=== PATIENT | female | born 1970 | race Caucasian/White ===

== ENCOUNTER 2022-10-30 10:53 | Outpatient (AMB) | payer OTHER, SELFPAY ==
--- NOTE | 2022-10-30 11:00 | A.OFFVIS_ITS ---
Intake Vital Signs 10/30/22 11:04 Height 5 ft 2 in Weight 142 lb 2 oz BMI 26.0 BP 126/88 Blood Pressure Location Lt brachial Position Sitting Respiration 16 Pulse 73 Pulse Source Pulse Oximeter Pulse Oximetry (%) 99 Oxygen Delivery Method Room Air Intake Visit Reasons: NPV/Botox/Trapezius Spasm & Neck Pain-con\ Intake Note: pt had spine surgery in [place]. 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 . she also has scoliosis . After the surgery her neck mobility decreased , neck pain worsened. she also reports numbness in her left neck left scalp,UE , trunk . Now she is alos noticing in her left hip and thighs. she also has chronic left hand weakness . she reports stiffness, mobility issues in her left shoulder. she was seen by DR. Horn who treated her with Botox to left trapezius( 300 units) She did not notice any improvement. she feels her head in heavy . she is here for second opinion . Her home sleep test was normal 1 year ago [facility] Medical History (Updated 10/30/22 @ 12:05 by Amy Monahan MD) Ankylosis, left shoulder Cervical dystonia Klippel-Feil deformity Left sided numbness Osteoporosis Scoliosis Syringomyelia Surgical History (Updated 10/30/22 @ 12:06 by Amy Monahan MD) History of bunionectomy History of cranial surgery Review of Systems Const Reports daytime sleepiness and Reports weight gain Physical Exam Vital Signs: Last Vital Signs Pulse 73 10/30/22 11:04 Resp 16 10/30/22 11:04 BP 126/88 10/30/22 11:04 Pulse Ox 99 10/30/22 11:04 Oxygen Delivery Method Room Air 10/30/22 11:04 BMI result Body Mass Index 26.0 Neck Other: right laterocollis and left torticollis restricted range of motion- normal forad flexion, decreased extension severe decreased left lateral tilt Right normal lateral tilt turning bilaterally restricted Tightness in left splenius, trazezius and levator no tenderness Mallampatti grade 4 Tight TMJs Neuro Other: decreased Light touch PP in left UE trunk , thigh Demetrius end gaze horizontal nystagmus General: tone normal and moves all extremities Cranial nerves: Yes Normal facial strength present Cognition (Neuro): normal cognition Gait exam (Neuro): Antalgic gait present Motor exam (neuro): 5/5 motor strength present throughout Deep tendon reflexes (DTR's): Right triceps reflex intensity grade: 2+, Left triceps reflex intensity grade: 1+, Rt Biceps (C5, C6): 2+, Left biceps reflex intensity grade: 1+, Right brachioradialis reflex intensity grade: 2+, Left brachioradialis reflex intensity grade: 1+, Left patellar reflex intensity grade: 3+ and Right ankle reflex intensity grade: 3+ Coordination: [id number]-cm-fozd test normal Assessment & Plan Assessment & Plan (1) Syringomyelia: Code(s): G95.0 - Syringomyelia and syringobulbia (2) Left sided numbness: Code(s): R20.0 - Anesthesia of skin (3) Cervical dystonia: Code(s): G24.3 - Spasmodic torticollis (4) Scoliosis: Code(s): M41.9 - Scoliosis, unspecified Plan Reviewed neurosurgery notes. Dr. Will. Syrigoperitoneal shunt was considered but Nicolette Rutledge was concerned about possible increase in leg weakness. I will refer her to PT for her left shoulder and neck tightness. will trial her on baclofen 10 mg qhs Orders: Orders PT Evaluation and Treatment Today G24.3 - Spasmodic torticollis, M24.612 - Ankylosis, left shoulder Medications: New baclofen 10 mg PO BEDTIME 30 tabs 1RF Coding Level of Care Code New Pt Level 4 (37341) Diagnoses Syringomyelia G95.0 Left sided numbness R20.0 Cervical dystonia G24.3 Scoliosis M41.9
[2022-10-30 11:04] VITALS: BP 126/88; PULSE 73; RESP 16; O2SAT 99; BMI 26.0
== END 2022-10-30 11:40 | disposition home or self-care (01) ==
PROVIDERS: Visit Provider Psychiatry & Neurology Neurology
DX: G95.0 Syringomyelia and syringobulbia (principal); R20.0 Anesthesia of skin; G24.3 Spasmodic torticollis; M41.9 Scoliosis, unspecified
CPT/HCPCS: 99204

== ENCOUNTER → 2022-10-30 10:53 | Outpatient (BNVA) | payer OTHER, SELFPAY | PROVIDERS: Visit Provider Psychiatry & Neurology Neurology ==

== ENCOUNTER 2023-04-10 09:09 | Outpatient (AMB) | payer OTHER, SELFPAY ==
--- NOTE | 2023-04-10 09:13 | A.OFFVIS_ITS ---
Intake Vital Signs 04/10/23 09:14 Height 5 ft 2 in Weight 149 lb 6 oz BMI 27.3 BP 110/70 Blood Pressure Location Rt brachial Position Sitting Respiration 16 Pulse 84 Pulse Source Pulse Oximeter Pulse Oximetry (%) 99 Oxygen Delivery Method Room Air Intake Visit Reasons: 2m follow up Trapezius Spasm/Neck Pain Intake Note: Pt presents for a 2 month follow up for cervicalgia. [employer] Required: No Allergies No Known Allergies Allergy (Verified 04/10/23 09:14) Medication List - Last Reconciled 04/10/23 by Amy Monahan MD alendronate 70 mg PO QWEEK mometasone 50 mcg/actuation 2 sprays intranasal DAILY sumatriptan succinate 25 mg PO Q2-4H PRN HPI HPI Comments History of Present Illness Details 53y/o female comes for follow up of tort icollis. she tried baclofen but did not help and had side effects.SHe denies pain and only stiffness in her neck. she also has migraines and started sumatriptan . MRI brain - mild nonspecific white matter changes and syrinx seemed smaller compared to C spine MRI in 2014. 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 . she also has scoliosis . After the ira tobi her neck mobility decreased , neck pain worsened. she also reports numbness in her left neck left scalp,UE , trunk . Now she is also noticing in her left hip and thighs. she also has chronic left hand weakness . she reports stiffness, mobility issues in her left shoulder. she was seen by DR. Horn who treated her with Botox to left trapez ius( 300 units) She did not notice any improvement. she feels her head in heavy . she is here for second opinion . Her home sleep test was normal 1 year ago [facility] Medical History Osteoporosis Klippel-Feil deformity Left sided numbness Syringomyelia Scoliosis Cervical dystonia Ankylosis, left shoulder Surgical History History of cranial surgery History of bunionectomy Physical Exam Vital Signs: Last Vital Signs Pulse 84 04/10/23 09:14 Resp 16 04/10/23 09:14 BP 110/70 04/10/23 09:14 Pulse Ox 99 04/10/23 09:14 Oxygen Delivery Method Room Air 04/10/23 09:14 BMI result Body Mass Index 27.3 Neck Other: right laterocollis and left torticollis restricted range of motion- normal forad flexion, decreased extension severe decreased left lateral tilt Right normal lateral tilt turning bilaterally restricted Tightness in left splenius, trazezius and levator no tenderness Mallampatti grade 4 Tight TMJs Neuro Other: decreased Light touch PP in left UE trunk , thigh Demetrius end gaze horizontal nystagmus General: tone normal and moves all extremities Cranial nerves: Yes Normal facial strength present Cognition (Neuro): normal cognition Gait exam (Neuro): Antalgic gait present Motor exam (neuro): 5/5 motor strength present throughout Coordination: [id number] test normal Assessment & Plan Assessment & Plan (1) Syringomyelia: Code(s): G95.0 - Syringomyelia and syringobulbia (2) Left sided numbness: Code(s): R20.0 - Anesthesia of skin (3) Cervical dystonia: Code(s): G24.3 - Spasmodic torticollis (4) Scoliosis: Code(s): M41.9 - Scoliosis, unspecified Plan Continue PT for her left shoulder and neck tightness. she declined BOTOX Magnesium 400mg qhs for migraine Medications: New magnesium oxide 400 mg PO BEDTIME 30 tabs 6RF Coding Level of Care Code Est Pt Level 4 (66849) Diagnoses Syringomyelia G95.0 Left sided numbness R20.0 Cervical dystonia G24.3 Scoliosis M41.9
[2023-04-10 09:14] VITALS: BP 110/70; PULSE 84; RESP 16; O2SAT 99; BMI 27.3
== END 2023-04-10 09:44 | disposition home or self-care (01) ==
PROVIDERS: PCP Physician Assistant; Visit Provider Psychiatry & Neurology Neurology
DX: G95.0 Syringomyelia and syringobulbia (principal); R20.0 Anesthesia of skin; G24.3 Spasmodic torticollis; M41.9 Scoliosis, unspecified
CPT/HCPCS: 99214

== ENCOUNTER → 2023-04-10 09:09 | Outpatient (BNVA) | payer OTHER, SELFPAY | PROVIDERS: PCP Physician Assistant; Visit Provider Psychiatry & Neurology Neurology | DX: M24.612 Ankylosis, left shoulder (principal); G24.3 Spasmodic torticollis ==

== ENCOUNTER 2023-10-09 08:54 | Outpatient (AMB) | payer OTHER, SELFPAY ==
--- NOTE | 2023-10-09 08:56 | MHC.OFFVIS ---
Vital Signs 10/09/23 08:58 Height 5 ft 2 in Weight 149 lb BMI 27.2 BP 112/68 Blood Pressure Location Rt brachial Position Sitting Respiration 17 Pulse 79 Pulse Source Pulse Oximeter Pulse Oximetry (%) 98 Oxygen Delivery Method Room Air Intake Visit Reasons: 6 MONTH F/U - Confirmed Intake Note: Ptt presents for a 6 month follow up for Cervical dystonia. 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 she tried baclofen but did not help and had side effects.SHe denies pain and only stiffness in her neck.she tried magneium 200mg not sure it helped.PT did not help she also reports intermittent vertigo. she also has migraines and started sumatriptan . MRI brain - mild nonspecific white matter changes and syrinx seemed smaller compared to C spine MRI in 2015. 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 . she also has scoliosis . After the surgery her neck mobility decreased , neck pain worsened. she also reports numbness in her left neck left scalp,UE , trunk . Now she is also noticing in her left hip and thighs. she also has chronic left hand weakness . she reports stiffness, mobility issues in her left shoulder. she was seen by DR. Horn who treated her with Botox to left trapezius( 300 units) She did not notice any improvement. she feels her head in heavy . Her home sleep test was normal 1 year ago [facility] Medical History Osteoporosis Klippel-Feil deformity Left sided numbness Syringomyelia Scoliosis Cervical dystonia Ankylosis, left shoulder Surgical History History of cranial surgery History of bunionectomy Physical Exam Vital Signs: Last Vital Signs Pulse 79 10/09/23 08:58 Resp 17 10/09/23 08:58 BP 112/68 10/09/23 08:58 Pulse Ox 98 10/09/23 08:58 Oxygen Delivery Method Room Air 10/09/23 08:58 BMI result Body Mass Index 27.2 Neck Other: right laterocollis and left torticollis restricted range of motion- normal forad flexion, decreased extension severe decreased left lateral tilt Right normal lateral tilt turning bilaterally restricted Tightness in left splenius, trazezius and levator no tenderness Mallampatti grade 4 Tight TMJs Neuro Other: decreased Light touch PP in left UE trunk , thigh Demetrius end gaze horizontal nystagmus General: tone normal and moves all extremities Cranial nerves: Yes Normal facial strength present Cognition (Neuro): normal cognition Gait exam (Neuro): Antalgic gait present Motor exam (neuro): 5/5 motor strength present throughout Coordination: [id number]-al-dchr test normal Assessment & Plan Assessment & Plan (1) Syringomyelia: Code(s): G95.0 - Syringomyelia and syringobulbia Category: Medical (2) Left sided numbness: Code(s): R20.0 - Anesthesia of skin Category: Medical (3) Cervical dystonia: Code(s): G24.3 - Spasmodic torticollis Category: Medical (4) Scoliosis: Code(s): M41.9 - Scoliosis, unspecified Category: Medical Plan Continue exercises for her left shoulder and neck tightness. she declined BOTOX Magnesium glycinate 200mg qhs for migraine Increase sumatriptan 50mg as needed Orders: Orders PT Evaluation and Treatment Today G24.3 - Spasmodic torticollis Medications: New sumatriptan succinate take 1 tab at onset of headache; if no relief may repeat 1 tab after at least 2 hrs; max = 4 tabs/24 hr PO 14 tabs 6RF Coding Level of Care Code Est Pt Level 4 (68098) Diagnoses Syringomyelia G95.0 Left sided numbness R20.0 Cervical dystonia G24.3 Scoliosis M41.9
[2023-10-09 08:58] VITALS: BP 112/68; PULSE 79; RESP 17; O2SAT 98; BMI 27.2
== END 2023-10-09 09:26 | disposition home or self-care (01) ==
PROVIDERS: PCP Physician Assistant; Visit Provider Psychiatry & Neurology Neurology
DX: G95.0 Syringomyelia and syringobulbia (principal); R20.0 Anesthesia of skin; G24.3 Spasmodic torticollis; M41.9 Scoliosis, unspecified
CPT/HCPCS: 99214

== ENCOUNTER → 2023-10-09 08:54 | Outpatient (BNVA) | payer OTHER, SELFPAY | PROVIDERS: PCP Physician Assistant; Visit Provider Psychiatry & Neurology Neurology ==

== ENCOUNTER 2024-01-21 14:47 | Outpatient (AMB) | payer OTHER, SELFPAY ==
[2024-01-21 14:55] VITALS: BMI 27.2
--- NOTE | 2024-01-21 14:55 | A.OFFVIS_ITS ---
Vital Signs 01/21/24 14:55 Height 5 ft 2 in Weight 149 lb BMI 27.2 Intake Visit Reasons: f/u appt for swollen hand Intake Note: Patient presents for follow up swollen hand. Allergies No Known Allergies Allergy (Verified 01/21/24 14:57) HPI Comments Details: 53 year old female is here for a follow up of Cervicogenic pain and migraines. H/o cervical fusion of c2 and c3, defect. She is R. hand dominant now unable to open bottles or doors with her hand. She went for PT / Dry needling the next morning right hand became swollen and has been like this for 2months. We had her xray the first carpometacarpal joint, with findings of mild degenerative changes, no fractures. She will follow up with her [facility] and PCP. Migraines: Her sleep is good. Mood is stable. She is now having migraines which comes on with the beginning of her ovulation cycle, lasting 2 to 3 days. She is sensitive to noise and light. Denies nausea, vomiting, auras, memory difficulties. She continues to take 50mg Sumatriptan and it is working well for the management of migraines. [facility] Medical History Osteoporosis Klippel-Feil deformity Left sided numbness Syringomyelia Scoliosis Cervical dystonia Ankylosis, left shoulder Surgical History History of cranial surgery History of bunionectomy Review of Systems Const All systems reviewed & are unremarkable except as noted in HPI and below ENT Reports Normal hearing present Neuro Reports Normal hearing present Physical Exam Vital Signs: BMI result Body Mass Index 27.2 Const General: cooperative, comfortable and no acute distress Nutritional Appearance: average body habitus Orientation/consciousness: patient oriented x3 HEENT Head: Yes normal to inspection Face and sinus: Yes normal facial exam and Yes face symmetric Mouth: tongue normal Eyes Pupils: Equal, round and reactive pupils present Neck Neck: Yes full ROM (Limited ROM to the left, disc fusion c3-c4 - defect, had surgery.) and Yes supple Resp Effort & Inspection: normal respiratory effort and able to speak in complete sentences Neuro General: patient oriented x3 and moves all extremities Cranial nerves: Yes CN's II-XII intact bilaterally, Yes Facial sensation intact/muscles of mastication intact, Yes Equal, round and reactive pupils present, Yes Normal accommodation reflex present, Yes Nystagmus not present, Yes Normal facial strength present, Yes Midline tongue present, Yes Symmetric palate elevation present, Yes Normal hearing present, Yes Ability to bilaterally rotate head present (limited ROM to the Left.) and Yes Ability to bilaterally elevate shoulders present Gait exam (Neuro): Normal gait present Motor exam (neuro): 5/5 motor strength present throughout Deep tendon reflexes (DTR's): Right triceps reflex intensity grade: 2+, Left triceps reflex intensity grade: 2+, Rt Biceps (C5, C6): 2+, Left biceps reflex intensity grade: 2+, Right brachioradialis reflex intensity grade: 2+, Left brachioradialis reflex intensity grade: 2+, Right patellar reflex intensity grade: 2+ and Left patellar reflex intensity grade: 2+ Coordination: [id number]-[id number]-ryik test normal Assessment & Plan Assessment & Plan (1) Cervicogenic migraine: Code(s): G43.809 - Other migraine, not intractable, without status migrainosus Category: Medical Plan: see details below (2) Finger pain, right: Code(s): M79.644 - Pain in right finger(s) Category: Medical Plan: May use ice for inflammation, and over the counter anti-inflammatory. Xray shows mild degenerative changes in the first carpometacarpal joint. Follow up with PCP for finger pain. Continue with Sumatriptan 50mg PO as needed at the onset of the migraine, may repeat 1 tablet 2 hours later if migraine doesn't subside with first dose. May repeat 4x max per 24 hour period. Coding Level of Care Code Est Pt Level 4 (38296) Complex EM visit Add On G2211 Diagnoses Cervicogenic migraine G43.809 Finger pain, right M79.644
== END 2024-01-21 15:41 | disposition home or self-care (01) ==
PROVIDERS: PCP Physician Assistant; Visit Provider Physician Assistant Medical
DX: G43.809 Other migraine, not intractable, without status migrainosus (principal); M79.644 Pain in right finger(s)
CPT/HCPCS: 99214

== ENCOUNTER → 2024-01-21 14:47 | Outpatient (BNVA) | payer OTHER, SELFPAY | PROVIDERS: PCP Physician Assistant; Visit Provider Psychiatry & Neurology Neurology ==

== ENCOUNTER 2024-05-12 08:11 | Outpatient (AMB) | payer OTHER, SELFPAY ==
[2024-05-12 08:12] VITALS: BP 116/74; PULSE 85; O2SAT 98; BMI 27.3
--- NOTE | 2024-05-12 08:12 | A.OFFVIS_ITS ---
Vital Signs 05/12/24 08:12 Height 5 ft 2 in Weight 149 lb 2 oz BMI 27.3 BP 116/74 Blood Pressure Location Rt brachial Pulse 85 Pulse Source Pulse Oximeter Pulse Oximetry (%) 98 Oxygen Delivery Method Room Air Intake Visit Reasons: 6 MONTH F/U Intake Note: Pt presents to the office today for a 6 month follow up for Cervicogenic pain and migraines. Allergies No Known Allergies Allergy (Verified 05/12/24 08:14) Medication List - Last Reconciled 05/12/24 by Amy Monahan MD denosumab (Prolia) 60 mg subcut [id number] magnesium oxide 400 mg PO BEDTIME mometasone 50 mcg/actuation 2 sprays intranasal DAILY sumatriptan succinate take 1 tab at onset of headache; if no relief may repeat 1 tab after at least 2 hrs; max = 4 tabs/24 hr PO HPI Comments Details: 54 year old female is here for a follow up of Cervicogenic pain and migraines. Her migraines have increased to 2/month she also missed her periods this month and thinks she might be going through [employer].Sumatriptan helps in 30 minutes. history from last visit-H/o cervical fusion of c2 and c3, defect. She is R. hand dominant now unable to open bottles or doors with her hand. She went for PT / Dry needling the next morning right hand became swollen and has been like this for 2months. We had her xray the first carpometacarpal joint, with findings of mild degenerative changes, no fractures. She will follow up with her [employer] and PCP. Migraines: Her sleep is good. Mood is stable. She is now having migraines which comes on with the beginning of her ovulation cycle, lasting 2 to 3 days. She is sensitive to noise and light. Denies nausea, vomiting, auras, memory difficulties. She continues to take 50mg Sumatriptan and it is working well for the management of migraines. [facility] Medical History Osteoporosis Klippel-Feil deformity Left sided numbness Syringomyelia Scoliosis Cervical dystonia Ankylosis, left shoulder Surgical History History of cranial surgery History of bunionectomy Family History Father Hyperlipidemia Social History Alcohol intake: never Patient Tobacco Use Status: Never used Tobacco Review of Systems ENT Reports Normal hearing present Neuro Reports Normal hearing present Physical Exam Vital Signs: Last Vital Signs Pulse 85 05/12/24 08:12 BP 116/74 05/12/24 08:12 Pulse Ox 98 05/12/24 08:12 Oxygen Delivery Method Room Air 05/12/24 08:12 BMI result Body Mass Index 27.3 Const General: cooperative, comfortable and no acute distress Nutritional Appearance: average body habitus Orientation/consciousness: patient oriented x3 HEENT Head: Yes normal to inspection Face and sinus: Yes normal facial exam and Yes face symmetric Mouth: tongue normal Eyes Pupils: Equal, round and reactive pupils present Neck Neck: Yes full ROM (Limited ROM to the left, disc fusion c3-c4 - defect, had surgery.) and Yes supple Resp Effort & Inspection: normal respiratory effort and able to speak in complete sentences Neuro General: patient oriented x3 and moves all extremities Cranial nerves: Yes CN's II-XII intact bilaterally, Yes Facial sensation intact/muscles of mastication intact, Yes Equal, round and reactive pupils present, Yes Normal accommodation reflex present, Yes Nystagmus not present, Yes Normal facial strength present, Yes Midline tongue present, Yes Symmetric palate elevation present, Yes Normal hearing present, Yes Ability to bilaterally rotate head present (limited ROM to the Left.) and Yes Ability to bilaterally elevate shoulders present Gait exam (Neuro): Normal gait present Motor exam (neuro): 5/5 motor strength present throughout Coordination: [id number] test normal Assessment & Plan Assessment & Plan (1) Cervicogenic migraine: Code(s): G43.809 - Other migraine, not intractable, without status migrainosus Category: Medical Plan: see details below (2) Finger pain, right: Code(s): M79.644 - Pain in right finger(s) Category: Medical Plan: May use ice for inflammation, and over the counter anti-inflammatory. Xray shows mild degenerative changes in the first carpometacarpal joint.- F/u with - Rheumatology Continue with Sumatriptan 50mg PO as needed at the onset of the migraine, may repeat 1 tablet 2 hours later if migraine doesn't subside with first dose. May repeat 4x max per 24 hour period. MRI C spine to evaluate syringo myelia Orders: Orders MR cervical spine wo con Today G95.0 - Syringomyelia and syringobulbia, Q76.1 - Klippel-Feil syndrome Coding Level of Care Code Est Pt Level 4 (03007) Diagnoses Cervicogenic migraine G43.809 Finger pain, right M79.644
--- OUTSIDE RECORDS SUMMARY | 2024-05-12 08:26 | XMS_ITS ---
Author Organization [facility] Address [address] [place] [address] Care Team Providers Care Laboratory Associate Name Role Phone LISANDRO TRIPATHI MD Primary Care Provider Kyra MaldonadoMargaretli Unavailable [phone] Allergies No Known Allergies Results Component Value Reference Range Notes Urinalysis Reviewed date:06/23/2023 11:43:46 AM Interpretation: Performing Lab: Notes/Report: PH 7.0 PROTEIN TR GLUCOSE NEG BLOOD NEG [id number] IGP No Culture 30 Plus Reviewed date:06/25/2023 05:14:44 PM Interpretation: Performing Lab:[facility] [place], [address], [address], [place], Phone - [phone], Director - [facility] Notes/Report: Clinical Information:VAGINAL/CERVICAL:LMP> [id number] LMP / Prev Treat...UCM=[id number] Dates / Results....04/27/20 NEGHPV No. of containers..01 ThinPrep Vial DIAGNOSIS: NEGATIVE FOR IN TRAEPITHELIAL LESION OR MALIGNANCY. Specimen adequacy: Satisfact ory for evaluation. No endocervical component is identified. Clinician provided ICD10: Z0 1.419 Performed by: Jorge zhou, Trolley Cleaner ([facility]) . . Note: The Pap smear is a screening test designed to aid in the detection of premalignant and malignant conditions of the uterine cervix. It is not a diagnostic procedure and should not be used as the sole means of detecting cervical cancer. Both false-positive and false-negative reports do occur. . Test Methodology: This liquid based ThinPrep(R) pap test was screened with the use of an image guided system. HPV Aptima Negative Negative This nucleic acid amplification test detects fourteen high-risk HPV types (16,18,31,33,35,39,45,51,52,56,58 ,59,66,68) without differentiation. HPV Genotype Reflex Criteria not met, HPV Genotype not performed. PDF Report Reviewed date:06/25/2023 05:14:29 PM Interpretation: Performing Lab:[facility] [place], [address], [address], [place], Phone - [phone], Director - [facility] Notes/Report: Clinical Information:VAGINAL/CERVICAL:LMP> [id number] LMP / Prev Treat...RYD=[id number] Dates / Results....04/27/20 NEGHPV No. of containers..01 ThinPrep Vial REASON FOR VISIT Annual MEDICAL MASSAGE THERAPIST Physical, Annual MEDICAL MASSAGE THERAPIST Physical 50-59* Medications Medication SIG (Take, Route, Frequency, Duration) Notes Start Date End Date Status Alendronate Sodium 70 MG 1 tablet 30 min utes before the first food, beverage or medicine of the day with plain water Orally for 30 day(s) Active Social History Tobacco Use: Social History Observation Description Date Details (start date - stop date) Never Smoker NA - NA Tobacco Use/Smoking Question Answer Notes Are you a nonsmoker Alcohol Screen (Audit-C) Question Answer Notes Did you have a drink containing alcohol in the p ast year? No Points 0 Interpretation Negative Sexual History Question Answer Notes Had sex in the past 12 months (vaginal, oral, or anal)? Yes with Men only Prevention strategies discussed: Condoms Vital Signs Temperature 97.8 degrees Fahrenheit 06/23/19 24 Blood pressure systolic 110 mm Hg 06/23/19 24 Blood pressure diastolic 78 mm Hg 024 Height 62.5 in 06/23/2023 Weight 144 lbs 06/23/2023 BMI 25.92 kg/m2 06/23/2023 110/78 Encounters Encounter Location Date Provider Diagnosis Total [address] [place] [address] 06/23/2023 Christina Maldonado Encounter for gynecological examination (general) (routine) without abnormal findings Z01.419 ; Encounter for screening mammogram for malignant neoplasm of breast Z12.31 ; Age-related osteoporosis without current pathological fracture M81.0 and Dense breasts, unspecified R92.30 Assessments Encounter Date Diagnosis (ICD Code) Assessment Notes Treatment Notes Treatment Clinical Notes Section Notes 06/23/2023 Encounter for gynecological examination (general) (routine) without abnormal findings (ICD-10 - Z01.419) PAP TEST WITH HPV TYPING WAS OBTAINED. 06/23/2023 Encounter for screening mammogram for malignant neoplasm of breast (ICD-10 - Z12.31) REGULAR MAMMOGRAMS AND SBE'S WERE RECOMMENDED. 06/23/2023 Age-related osteoporosis without current pathological fracture (ICD-10 - M81.0) DISCUSSED HER LAST BMD AND OSTEOPOROSIS AND ITS IMPACT ON HER HEALTH. CONTINUE SEEING HER MUSIC THERAPY SPECIALIST AND CONTINUE FOSAMAX. ADEQUATE CALCIUM AND VIT D. WEIGHT BEARING EXERCISES. OSTEO PRECAUTIONS. REPEAT BMD IN 2023. 06/23/2023 Dense breasts, unspecified (ICD-10 - R92.30) DISCUSSED DENSE BREASTS ON MAMMOGRAM AND ITS IMPLICATIONS. 3D MAMMOGRAMS WERE RECOMMENDED. Plan Of Treatment Treatment Notes Assessment Notes Encounter for gynecological examination (general) (routine) without abnormal findings PAP TEST WITH HPV TYPING WAS OBTAINED. Encounter for screening mamm ogram for malignant neoplasm of breast REGULAR MAMMOGRAMS AND SBE'S WERE RECOMMENDED. Age-related osteoporosis wit hout current pathological fracture DISCUSSED HER LAST BMD AND OSTEOPOROSIS AND ITS IMPACT ON HER HEALTH. CONTINUE SEEING HER MUSIC THERAPY SPECIALIST AND CONTINUE FOSAMAX. ADEQUATE CALCIUM AND VIT D. WEIGHT BEARING EXERCISES. OSTEO PRECAUTIONS. REPEAT BMD IN 2023. Dense breasts, unspecified DISCUSSED DENSE BREASTS ON MAMMOGRAM AND ITS IMPLICATIONS. 3D MAMMOGRAMS WERE RECOMMENDED. Pending Test Test Name Order Date BONE DENSITY 06/23/2023 MM Digital Mammo Screening 06/23/2023 Next Appt Details Follow Up: 1 Year, Reason: Provider Name:Christina pitts, 06/23/2024 09:20:00 AM, [address], [address], [place], [address], Progress Notes * LIV SINGLETARYOB:1970 (53 yo F)Acc No.[id number]:06/23/2023 PROGRESS NOTES Patient:?JERED SINGLETARY Appointment Provider:?Christina pitts M.D. :1970???Age:53 Y???Sex:Female D ate:06/23/2023 Address:[address], , [place] Pcp:LISANDRO TRIPATHI MD Subjective: * Chief Complaints: * ???Annual MEDICAL MASSAGE THERAPIST PhysicalAnnual MEDICAL MASSAGE THERAPIST Physical 50-59* * HPI: ???New/Follow-up Patient Consult:? PAT CONTINUES TO HAVE REGULAR MENSES.? SHE DENIES ANY MENOPAUSAL SYMPTOMS.? SHE DENIES DYSPAREUNIA. SHE IS KNOWN TO BE OSTEOPOROTIC AND SEES A MUSIC THERAPY SPECIALIST, DR JACOME, WHO? PLACED HER ON FOSAMAX IN 2021.? SHE IS TOLERATING THIS WELL.? HER LAST BMD SHOWED THE LOWEST T-SCORE TO BE -2.6 AT THE [facility].? SHE HAS NO HX OF FRACTURES. HER LAST MAMMOGRAM DONE IN NOV 2022 SHOWED DENSE BREASTS ANDW NORMAL.? HER LIFETIME BREAST CA RISK IS 10.2%. HER LAST PAP TEST IN 2020 WAS NEGATIVE AND HPV NEGATIVE. SHE HAD A COLONOSCOPY DONE IN 2021. PFIZER X 3. ???Annual:? Patient presents for annual exam, ages 50-59. ?General Health Maintenance:?Current breast complaints:?no breast pain, mass, discharge, or skin changes ?Urinary problems:?patient reports no urinary health problems or bowel health problems ?Calcium intake:?takes adequate calcium via diet and supplementation ?Significant MEDICAL MASSAGE THERAPIST problems:?no significant blue leather setter symptoms or problems * ROS:?general:?no?chest pain.?no?palpitations.?no?headache.?no?cough.?no?shortness of breath.?no?fever.?no?unexplained weight loss.?no?nausea/vomiting.?no?change in bowel movements.?no blood in stool.?no?genitourinary complaints.?no?skin complaints.? * Medical History:? * [employer] History:?/ Para?2/2.?Sexual activity?currently sexually active.?Last Pap Smear:?04/27/20 NIL, NEG HPV, 06/14/17 NIL, NEG HRHPV, 04/21/2015, neg, NEG HRHPV.?Mammogram:?11/20/22 50-75% density, 11/16/21 50-75% density, 11/15/20 50-75% density, 10/07/19 50-75% density, 08/21/17 50-75% density, 08/20/16 50-75% density, 06/29/2015 50-75% density.?LMP and menses?06/05/23.? Control:?condoms.?Colonoscopy?08/2021 Q 10 Years.? * OB History:?Total pregnancies?2.?Total living children?2.?NVD?2.? * Surgical History:?Bunionecto my Spinal Fusion Cervical Polypectomy 2015Colonoscopy 08/2021 * Hospitalization/Major Diagno stic Procedure:?2 Vaginal Deliveries See Surgical Hx Fall, Cracked Rib 03/05/20 * Family History:?Mother: bertram marcano, well.?Father: , Tragic Accident.? * Social History:?Tobacco Use:?Tobacco Use/Smoking?Are you a?nonsmoker ???Sexual History:?Sexual History?Had sex in the past 12 months (vaginal, oral, or anal)??Yes ?with?Men only ?Prevention strategies discussed:?Condoms ?Details of Sexual History?Are you sexually active??Yes ???Drugs/Alcohol:?Drugs?Have you used drugs other than those for medical reasons in the past 12 months??No ?Alcohol Screen (Audit-C)?Did you have a drink containing alcohol in the past year??No ?Points?0 ?Interpretation?Negative ???Miscellaneous:?Children: yes, 2. ?Domestic violence: no. ?Exercise: yes, walking. ?Home smoke detector use: yes. ?Living with: spouse. ?Marital status: . ?Natural support system: yes. 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 ?Others at home: yes. ?Sexual abuse: no. ?Sexually active: yes, monogamous relationship. ?Verbal abuse: no. * Medications:?TakingAlendrona te Sodium 70 MG Tablet 1 tablet 30 minutes before the first food, beverage or medicine of the day with plain water Orally Taking Alendronate Sodium 70 MG Tablet 1 tablet 30 minutes before the first food, beverage or medicine of the day with plain water Orally DiscontinuedWomens One Daily - Tablet as directed Orally Clotrimazole-Betamethasone 1-0.05 % Cream 1 application to affected area Externally Twice a day Medication List reviewed and reconciled with the patientDiscontinued Womens One Daily - Tablet as directed Orally Discontinued Clotrimazole-Betamethasone 1-0.05 % Cream 1 application to affected area Externally Twice a day Medication List reviewed and reconciled with the patient * Allergies:?N.K.D.A.no[Allerg ies Verified] Objective: * Vitals:?Ht: 62.5 in, Wt:144l bs, BMI:25.92Index, BP:110/78mm Hg, Temp:97.8F. 110/78. * Examination: ???General Exam: ?CONSTITUTIONAL:?General Appearance:?alert, in no acute distress, normal, well nourished ?NECK/THYROID:?Inspection/Palpation:?normal ?Thyroid:?normal size and shape ?RESPIRATORY:?Auscultation: clear to auscultation bilaterally, Respiratory Effort: normal.?CARDIOVASCULAR:?Auscultation: regular rate and rhythm.?BREAST, Right:?Inspection/Palpation:?no discharge, no masses present, no nipple retraction, no skin changes, no skin dimpling, no tenderness, no lymphadenopathy, no axillary mass, no axillary tenderness ?BREAST, Left:?Inspection/Palpation:?no discharge, no masses present, no nipple retraction, no skin changes, no skin dimpling, no tenderness, no lymphadenopathy, no axillary mass, no axillary tenderness ?GASTROINTESTINAL:?Abdomen:?no masses, nontender, nondistended ?Liver and Spleen:?normal ?Hernias:?no hernias present, no inguinal adenopathy ?MUSCULOSKELETAL:?Inspection/Palpation:?no clubbing, cyanosis, or edema ?SKIN:?Skin:?normal ?NEURO/PSYCH:?Orientation:?time , place, person ?Mood/Affect:?normal?Genitourinary: ?EXTERNAL GENITALIA:?External Genitalia:?normal, no lesions ?VAGINA:?Vagina:?normal appearance, no abnormal discharge, no lesions ?BLADDER:?Bladder:?no mass, nontender ?URETHRA:?Urethra:?no erythema or lesions present ?CERVIX:?Cervix:?no lesions, nontender ?UTERUS:?Uterus:?nontender, normal contour, normal mobility, normal size ?ADNEXA:?Adnexa:?no masses, no tenderness ?ANUS AND PERINEUM:?Anus/Perineum:?visually normal??? Assessment: * Assessment: 1.?Encounter for gynecologic al examination (general) (routine) without abnormal findings - Z01.419?2.?Encounter for screening mammogram for malignant neoplasm of breast - Z12.31?3.?Age-related osteoporosis without current pathological fracture - M81.0?4.?Dense breasts, unspecified - R92.30? Plan: * Treatment: ?LAB: Urinalysis (Collection Date & Time - 06/23/2023)* ? Value Reference Range ?PH 7.0 * ?PROTEIN TR * ?GLUCOSE NEG * ?BLOOD NEG Notes: PAP TEST WITH HPV TYPING WAS OBTAINED.??2.?Encounter for screening mammogram for malignant neoplasm of breast?Imaging: MM Digital Mammo Screening Notes: REGULAR MAMMOGRAMS AND SBE'S WERE RECOMMENDED.??3.?Age-related osteoporosis without current pathological fracture?Imaging: BONE DENSITY Notes: DISCUSSED HER LAST BMD AND OSTEOPOROSIS AND ITS IMPACT ON HER HEALTH. CONTINUE SEEING HER MUSIC THERAPY SPECIALIST AND CONTINUE FOSAMAX. ADEQUATE CALCIUM AND VIT D. WEIGHT BEARING EXERCISES. OSTEO PRECAUTIONS. REPEAT BMD IN 2023.??4.?Dense breasts, unspecified? Notes: DISCUSSED DENSE BREASTS ON MAMMOGRAM AND ITS IMPLICATIONS. 3D MAMMOGRAMS WERE RECOMMENDED.?? * Procedure Codes:? * Preventive Medicine:? ??YOUR PREVENTIVE WELLNESS PLAN:?Osteoporosis prevention?Calcium, D, strength training.?Breast Cancer Screening (Mammogram):?annually.?Cervical Cancer Screening (Pap Smear):?q 3 years with HPV screen.?Colorectal Cancer Screening:?q 10 years.? * Follow Up:?1 Year * Images: Billing Information: * Visit Code:? 32233 Preventive Care New Pt. Age 40-64. 56265 Preventive Care Est Pt. Age 40-64. * Procedure Codes:? * Sign off status: Completed true * Appointment Provider:?Christina Maldonado M.D. Date:?06/23/2023 Generated for Faby mazariegos/Lakisha/Melanieitting on:?05/12/2024 08:26 AM EST History and Physical Notes * HPI (History of Present Illness) Category Sub-Category Detail Notes Category Not es New/Follow-up Patient Consult PAT CONTINUES TO HAVE REGULAR MENSES. SHE DENIES ANY MENOPAUSAL SYMPTOMS. SHE DENIES DYSPAREUNIA. SHE IS KNOWN TO BE OSTEOPOROTIC AND SEES A MUSIC THERAPY SPECIALIST, DR JACOME, WHO PLACED HER ON FOSAMAX IN 2021. SHE IS TOLERATING THIS WELL. HER LAST BMD SHOWED THE LOWEST T-SCORE TO BE -2.6 AT THE [facility]. SHE HAS NO HX OF FRACTURES. HER LAST MAMMOGRAM DONE IN NOV 2022 SHOWED DENSE BREASTS ANDW NORMAL. HER LIFETIME BREAST CA RISK IS 10.2%. HER LAST PAP TEST IN 2020 WAS NEGATIVE AND HPV NEGATIVE. SHE HAD A COLONOSCOPY DONE IN 2021. PFIZER X 3. Annual General Health Maintenance: Current breast complaints:: no breast pain, mass, discharge, or skin changes Urinary problems:: patient r eports no urinary health problems or bowel health problems Calcium intake:: takes adequ ate calcium via diet and supplementation Significant MEDICAL MASSAGE THERAPIST problems:: n o significant blue leather setter symptoms or problems Examination Category Sub-Category Detail Notes Category Not es General Exam CONSTITUTIONAL: General Appearan ce:: alert, in no acute distress, normal, well nourished NECK/THYROID: Thyroid:: normal size and shape Inspection/Palpation:: normal RESPIRATORY: Auscultation: clear to auscultation bilaterally, Respiratory Effort: normal CARDIOVASCULAR: Auscultation: regula r rate and rhythm GASTROINTESTINAL: Hernias:: no hernias present, no inguinal adenopathy Liver and Spleen:: normal Abdomen:: no masses, nontender, nondiste nded MUSCULOSKELETAL: Inspection/Palpation:: no clubb ing, cyanosis, or edema SKIN: Skin:: normal NEURO/PSYCH: Mood/Affect:: normal Orientation:: time , place, person BREAST, Right: Inspection/Palpation :: no discharge, no masses present, no nipple retraction, no skin changes, no skin dimpling, no tenderness, no lymphadenopathy, no axillary mass, no axillary tenderness BREAST, Left: Inspection/Palpation :: no discharge, no masses present, no nipple retraction, no skin changes, no skin dimpling, no tenderness, no lymphadenopathy, no axillary mass, no axillary tenderness Genitourinary EXTERNAL GENITALIA: External Genitalia:: nor mal, no lesions VAGINA: Vagina:: normal appearance, no a bnormal discharge, no lesions BLADDER: Bladder:: no mass, nontender URETHRA: Urethra:: no erythema or lesions present CERVIX: Cervix:: no lesions, nontender UTERUS: Uterus:: nontender, normal conto ur, normal mobility, normal size ADNEXA: Adnexa:: no masses, no tendernes s ANUS AND PERINEUM: Anus/Perineum:: visually norm al
--- OUTSIDE RECORDS SUMMARY | 2024-05-12 08:26 | XMS_ITS | Patient Health Record ---
Author [facility] [place] Address [address] [place] [address] Care Team Providers Care Conveyor Tender [employer] Name Role Phone Ad Stacy MD, Sasha Iyer Primary Care Prov ider Unavailable Yadira Pinedo Unavailable [phone] Allergies No Known Allergies Reason For Referral No Information Medications Medication SIG (Take, Route, Fr equency, Duration) Notes Start Date End Date Status Medrol 4 MG as directed Orally 09/25/2020 Not-Taking Immunizations Vaccine Route Administration Date Status Comme nts COVID-19 Pfizer BioNTech Vaccine Unknown 05/19/2020 Administered 1st Shot 021 Social History Tobacco Use: Social History Observation Description Date Details (start date - stop date) Never Smoker NA - NA Tobacco Use/Smoking Question Answer Notes Are you a: nonsmoker Additional Findings: Tobacco Non-User Aggressive non-smoker Alcohol Screen Question Answer Notes Did you have a drink containing alcohol in the p ast year? No Points 0 Interpretation Negative Tobacco use other than smoking: Question Answer Notes Are you an other tobacco user? 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 Plan Of Treatment Pending Test Test Name Order Date X ray : Foot, right 3V 09/25/2020 Insurance Providers Payer Name Payer Address Payer Phone Subscriber Number Group Number Insured Name Patient Relationship to Insured Coverage Start Date Coverage End Date [facility] [address] [facility] [place] [phone] [id number] [employer] Jung Jr Spouse - patient is the spouse of the insured Medical (General) History Medical History History ICD Code Broken bones Headaches Numbness Joint implants/screws Surgical History Surgery Date(Month/Year) spine surgery 2004 bunionectomy 2011
--- OUTSIDE RECORDS SUMMARY | 2024-05-12 08:26 | XMS_ITS ---
Author Organization [facility] Address [address] [place] [address] Care Team Providers Care Contact Center Agent Name Role Phone BHUMI HURD, LISANDRO Primary Care Provider Christina Saeed Unavailable [phone] REASON FOR VISIT Annual JEWELRY MECHANIC Physical Encounters Encounter Location Date Provider Diagnosis [facility] [address] [place] [address] [address] [place] [address] 04/04/2023 Christina Maldonado Plan Of Treatment Next Appt Details Provider Name:Christina pitts, 06/23/2024 09:20:00 AM, [address], [address], [place], [address], Progress Notes * LIV SINGLETARYOB:1970 (54 yo F)Acc No.[id number]:04/04/2023 PROGRESS NOTES Patient:?JERED SINGLETARY Appointment Provider:?Christina pitts M.D. :1970???Age:53 Y???Sex:Female D ate:04/04/2023 Address:[address] [place] [address], [id number] Pcp:LISANDRO TRIPATHI MD Subjective: * Chief Complaints: * ???1. Annual JEWELRY MECHANIC Physical. * Medical History:? Objective: * Vitals:? Assessment: Plan: * Treatment: * Images: Billing Information: * Visit Code:? * Procedure Codes:? * Electronic signature of Kitty Maldonado MD on 05/12/2024 at 08:26 AM EST Sign off status: Pending * Appointment Provider:?Christina Maldonado M.D. Date:?04/04/2023 Generated for Faby mazariegos/Lakisha/Mary Ann on:?05/12/2024 08:26 AM EST
--- OUTSIDE RECORDS SUMMARY | 2024-05-12 08:27 | XMS_ITS | Data Portability ---
Author Organization [facility], Main Office Address [address] [place] [id number] Care Team Providers Care Glove Cutter Name Role Phone CARLEE FLORES Neurosurgeon VANESSA HOOVER Vascular Surgeon PARK PEÑALOZA [employer] Footballer LISANDRO TRIPATHI Primary Care Provider JONI KABA Volunteer Services Coordinator [phone] DYLAN PIRES Neurologist [phone] NELI MCQUEEN Referring Provider [phone] Assessment No assessment recorded. Plan of Treatment Reminders Order Date Submit Date Provider Last Modified By Organization Details Last Modified Time Details Appointments PE EST 2024 09:00A Erik TRIPATHI MD Not available Not available Not available Lab lipid panel, serum 2023 024 GONZALEZ [facility], [address], [place], [address], 05/21/2023 06:08:10 vitamin B12, serum 2023 024 GONZALEZ [facility], [address], [place], [address], 05/21/2023 06:08:11 BMP, serum or plasma 2023 024 GONZALEZ [facility], [address], [place], [address], 05/21/2023 06:08:10 CBC w/ auto diff 2023 024 GONZALEZ [facility], [address], [place], [address], 05/21/2023 06:08:09 TSH, ultra-sen sitive, serum 2023 024 GONZALEZ [facility], [address], [place], [address], 05/21/2023 06:08:11 C-reactiv e protein, quantitat anabel, serum or plasma 2022 023 GONZALEZ [facility], [address], [address], [place], [address], 06/24/2022 19:02:39 ESR (erythroc yte sedimenta tion rate), blood 2022 023 GONZALEZ [facility], [address], [address], [place], [address], 06/24/2022 17:33:23 rf (rheumato id factor), serum 2022 023 GONZALEZ [facility], [address], [address], [place], [address], 06/24/2022 19:02:40 Referral None recorded. Procedures None recorded. Surgeries None recorded. Imaging MRI, brain, w/o contrast - pt having different headache than usual and worse at night 2022 023 [facility] ([facility]), [address], [place], [address], 02/14/2023 11:07:19 XR, hand, 2 view - right hand 2022 023 GONZALEZ Not available 06/25/2022 09:15:53 Medication Orders meclizine 12.5 mg tablet 2022 023 [email or web address] [id number], [address], [place], [id number], 02/10/2023 10:10:30 Fioricet 50 mg-300 mg-40 mg capsule 2022 023 [email or web address] [id number], [address] [place] [address], [id number], 02/10/2023 10:10:22 Patient TargetsNo targets recorded. Patient Instructions Encounter Date Encounter Id Patient Instructions Last Modified By Organization Details Last Modified Time 11/19/2022 [id number] eustachian tube problems: care instructions [email or web address] Not available 11/19/2022 15:49:46 benign paroxysma l positional vertigo (bppv): care instructions [email or web address] Not available 11/19/2022 15:49:46 To call or retur n for worsening or concerns [email or web address] Not available 11/19/2022 15:49:53 02/10/2023 [id number] medical record request* Not available 02/17/2023 13:02:51 05/19/2023 [id number] osteoporosis: care instructions Not available 05/19/2023 09:59:45 medical record request* Not available 05/28/2023 13:20:00 11/13/2023 [id number] medical record request* Not available 11/20/2023 10:23:01 Reason for Referral None Reported. Results Created Date Observation Date Name Description Value Unit Range Abnormal Flag Note LastModifiedBy Organization Detail LastModifiedTime 06/25/1906/24/2022 SEDIM ENTAT ION RATE, AUTOM ATED sedimentatio n rate,automat ed 3 mm/HR (0-20) RESUL TS CHECK ED Not Available [facility] (Centralized Electronic Ordering - All Locations) Patient Can Go To The Location Of Their Choice, [id number] 06/24/2022 20:37:20 06/25/1906/24/2022 C-YOKO CTIVE PROTE IN C-reactive protein <0.3 mg/dL (0-0.5 ) Not Available [facility] (Centralized Electronic Ordering - All Locations) Patient Can Go To The Location Of Their Choice, [id number] 06/24/2022 19:02:39 06/25/19 23 06/24/2022 RHEUM ATOID FACTO R rheumatoid factor <10.0 IU/mL (<14) Not Available [facility] (Centralized Electronic Ordering - All Locations) Patient Can Go To The Location Of Their Choice, [id number] 06/24/2022 19:02:40 05/20/19 24 05/21/2023 CBC WITH DIFFE RENTI AL/PL ATELE T WBC 6.2 x10e3 /uL 3.4-10 .8 Not Available [facility] ([facility]) [address] [facility], [place], [address], 05/21/2023 06:08:09 05/20/1905/21/2023 CBC WITH DIFFE RENTI AL/PL ATELE T RBC 4.68 x10e6 /uL 3.77-5 .28 Not Available [facility] ([facility]) [address] [place], [address], 05/21/2023 06:08:09 05/20/19 24 05/21/2023 CBC WITH DIFFE RENTI AL/PL ATELE T hemoglobin 14.0 g/dL 11.1-1 5.9 Not Available [facility] ([facility]) [address] [place], [address], 05/21/2023 06:08:09 05/20/19 24 05/21/2023 CBC WITH DIFFE RENTI AL/PL ATELE T hematocrit 42.5 % 34.0-4 6.6 Not Available [facility] ([facility]) [address] [place], [address], 05/21/2023 06:08:09 05/20/1905/21/2023 CBC WITH DIFFE RENTI AL/PL ATELE T MCV 91 fL 79-97 Not Available [facility] ([facility]) [address] [place], [address], 05/21/2023 06:08:09 05/20/19 24 05/21/2023 CBC WITH DIFFE RENTI AL/PL ATELE T MCH 29.9 pg 26.6-3 3.0 Not Available [facility] ([facility]) [address] [facility], [place], [address], 05/21/2023 06:08:09 05/20/19 24 05/21/2023 CBC WITH DIFFE RENTI AL/PL ATELE T MCHC 32.9 g/dL 31.5-3 5.7 Not Available [facility] ([facility]) [address] [facility], [place], [address], 05/21/2023 06:08:09 05/20/19 24 05/21/2023 CBC WITH DIFFE RENTI AL/PL ATELE T RDW 12.1 % 11.7-1 5.4 Not Available [facility] ([facility]) [address] [place], [address], 05/21/2023 06:08:09 05/20/19 24 05/21/2023 CBC WITH DIFFE RENTI AL/PL ATELE T platelets 264 x10e3 /uL 150-45 0 Not Available [facility] ([facility]) [address] [facility], [place], [address], 05/21/2023 06:08:09 05/20/19 24 05/21/2023 CBC WITH DIFFE RENTI AL/PL ATELE T neutrophils 56 % not estab. Not Available [facility] ([facility]) [address] [place], [address], 05/21/2023 06:08:09 05/20/19 24 05/21/2023 CBC WITH DIFFE RENTI AL/PL ATELE T lymphs 32 % not estab. Not Available [facility] ([facility]) [address] [place], [address], 05/21/2023 06:08:09 05/20/19 24 05/21/2023 CBC WITH DIFFE RENTI AL/PL ATELE T monocytes 9 % not estab. Not Available [facility] ([facility]) [address] [facility], [place], [address], 05/21/2023 06:08:09 05/20/19 24 05/21/2023 CBC WITH DIFFE RENTI AL/PL ATELE T eos 2 % not estab. Not Available [facility] ([facility]) [address] [facility], [place], [address], 05/21/2023 06:08:09 05/20/19 24 05/21/2023 CBC WITH DIFFE RENTI AL/PL ATELE T basos 1 % not estab. Not Available [facility] ([facility]) [address] [facility], [place], [address], 05/21/2023 06:08:09 05/20/19 24 05/21/2023 CBC WITH DIFFE RENTI AL/PL ATELE T immature cells LICENSED NURSING ASSISTANT Not Available [facility] ([facility]) [address] [facility], [place], [address], 05/21/2023 06:08:09 05/20/19 24 05/21/2023 CBC WITH DIFFE RENTI AL/PL ATELE T neutrophils (absolute) 3.4 x10e3 /uL 1.4-7. 0 Not Available [facility] ([facility]) [address] [facility], [place], [address], 05/21/2023 06:08:09 05/20/19 24 05/21/2023 CBC WITH DIFFE RENTI AL/PL ATELE T lymphs (absolute) 2.0 x10e3 /uL 0.7-3. 1 Not Available [facility] ([facility]) [address] [facility], [place], [address], 05/21/2023 06:08:09 05/20/19 24 05/21/2023 CBC WITH DIFFE RENTI AL/PL ATELE T monocytes(ab solute) 0.5 x10e3 /uL 0.1-0. 9 Not Available [facility] ([facility]) [address] [facility], [place], [address], 05/21/2023 06:08:09 05/20/19 24 05/21/2023 CBC WITH DIFFE RENTI AL/PL ATELE T eos (absolute) 0.1 x10e3 /uL 0.0-0. 4 Not Available [facility] ([facility]) [address] [facility], [place], [address], 05/21/2023 06:08:09 05/20/19 24 05/21/2023 CBC WITH DIFFE RENTI AL/PL ATELE T baso (absolute) 0.1 x10e3 /uL 0.0-0. 2 Not Available [facility] ([facility]) [address] [facility], [place], [address], 05/21/2023 06:08:09 05/20/19 24 05/21/2023 CBC WITH DIFFE RENTI AL/PL ATELE T immature granulocytes 0 % not estab. Not Available [facility] ([facility]) [address] [facility], [place], [address], 05/21/2023 06:08:09 05/20/19 24 05/21/2023 CBC WITH DIFFE RENTI AL/PL ATELE T immature grans (abs) 0.0 x10e3 /uL 0.0-0. 1 Not Available [facility] ([facility]) [address] [facility], [place], [address], 05/21/2023 06:08:09 05/20/19 24 05/21/2023 CBC WITH DIFFE RENTI AL/PL ATELE T NRBC LICENSED NURSING ASSISTANT Not Available [facility] ([facility]) [address] [facility], [place], [address], 05/21/2023 06:08:09 05/20/19 24 05/21/2023 CBC WITH DIFFE RENTI AL/PL ATELE T hematology comments: LICENSED NURSING ASSISTANT Not Available [facility] ([facility]) [address] [facility] [place], [address], 05/21/2023 06:08:09 05/20/19 24 05/21/2023 BASIC METAB OLIC PANEL (8) glucose 80 mg/dL 70-99 Not Available [facility] ([facility]) [address] [facility] [place], [address], 05/21/2023 06:08:10 05/20/19 24 05/21/2023 BASIC METAB OLIC PANEL (8) BUN 13 mg/dL 6-24 Not Available [facility] ([facility]) [address] [facility] [place], [address], 05/21/2023 06:08:10 05/20/19 24 05/21/2023 BASIC METAB OLIC PANEL (8) creatinine 0.80 mg/dL 0.57-1 .00 Not Available [facility] ([facility]) [address] [place], [address], 05/21/2023 06:08:10 05/20/19 24 05/21/2023 BASIC METAB OLIC PANEL (8) eGFR 89 mL/mi n/1.7 3 >59 Not Available [facility] ([facility]) [address] [facility] [place], [address], 05/21/2023 06:08:10 05/20/19 24 05/21/2023 BASIC METAB OLIC PANEL (8) BUN/creatini ne ratio 16 9-23 Not Available [facility] ([facility]) [address] [place], [address], 05/21/2023 06:08:10 05/20/19 24 05/21/2023 BASIC METAB OLIC PANEL (8) sodium 138 mmol/ L 134-14 4 Not Available [facility] ([facility]) [address] [place], [address], 05/21/2023 06:08:10 05/20/19 24 05/21/2023 BASIC METAB OLIC PANEL (8) potassium 4.6 mmol/ L 3.5-5. 2 Not Available [facility] ([facility]) [address] [facility] [place], [address], 05/21/2023 06:08:10 05/20/19 24 05/21/2023 BASIC METAB OLIC PANEL (8) chloride 100 mmol/ L 96-106 Not Available [facility] ([facility]) [address] [facility] [place], [address], 05/21/2023 06:08:10 05/20/19 24 05/21/2023 BASIC METAB OLIC PANEL (8) carbon dioxide, total 22 mmol/ L 20-29 Not Available [facility] ([facility]) [address] [place], [address], 05/21/2023 06:08:10 05/20/19 24 05/21/2023 BASIC METAB OLIC PANEL (8) calcium 9.4 mg/dL 8.7-10 .2 Not Available [facility] ([facility]) [address] [place], [address], 05/21/2023 06:08:10 05/20/19 24 05/21/2023 LIPID PANEL cholesterol, total 189 mg/dL 100-19 9 Not Available [facility] ([facility]) [address] [place], [address], 05/21/2023 06:08:10 05/20/19 24 05/21/2023 LIPID PANEL triglyceride s 79 mg/dL 0-149 Not Available [facility] ([facility]) [address] [place], [address], 05/21/2023 06:08:10 05/20/19 24 05/21/2023 LIPID PANEL HDL cholesterol 73 mg/dL >39 Not Available [facility] ([facility]) [address] [place], [address], 05/21/2023 06:08:10 05/20/19 24 05/21/2023 LIPID PANEL VLDL cholesterol lizett 14 mg/dL 5-40 Not Available [facility] ([facility]) [address] [facility], [place], [address], 05/21/2023 06:08:10 05/20/19 24 05/21/2023 LIPID PANEL LDL chol calc ([facility]) 102 mg/dL 0-99 above high normal Not Available [facility] ([facility]) [address] [facility], [place], [address], 05/21/2023 06:08:10 05/20/19 24 05/21/2023 LIPID PANEL comment: LICENSED NURSING ASSISTANT Not Available [facility] ([facility]) [address] [facility], [place], [address], 05/21/2023 06:08:10 05/20/19 24 05/21/2023 TSH RFX ON ABNOR MAL TO FREE T4 TSH 1.630 uIU/m L 0.450- 4.500 Not Available [facility] ([facility]) [address] [facility], [place], [address], 05/21/2023 06:08:11 05/20/19 24 05/21/2023 VITAM IN B12 vitamin B12 1153 pg/mL 232-12 45 Not Available [facility] ([facility]) [address] [place], [address], 05/21/2023 06:08:11 06/21/19 23 03/21/2022 MRI, cervi lizett spine , w/o contr ast No observ ation record ed. [facility] [address] [place] [address], [address], 07/08/2022 14:15:49 06/26/19 23 06/24/2022 XR, hand, 2 view No observ ation record ed. GONZALEZ [facility] [place] [address], [address], 06/26/2022 16:47:46 11/21/1911/20/2022 MAMMO , scree kenneth, digit al, bilat eral PROCED URE: MM Digita l Mammo Screen ing INDICA TION: Screen ing for breast cancer . No known palpab le abnorm alitie s. COMPAR HUI: Multip le prior compar hui studie s, most recent on 11/17/19 22 . TECHNI QUE: Full-f ield digita l CC and MLO 3D tomosy nthesi s images of both breast s were acquir ed. Comput er-aid ed detect ion (CAD) was utiliz ed in the interp retati on of this study. Best possib le images were obtain ed per techno logist 's notes due to limite d neck mobili ty. DENSIT Y: The breast tissue is hetero geneou sly dense, which may obscur e masses . FINDIN GS: No suspic ious masses , suspic ious microc alcifi cation s, or areas of roni ectura l distor tion are seen in either breast to sugges t malign juan. IMPRES SCARLET: No mammog raphic eviden ce of malign juan. RECOMM ENDATI ON: Annual mammog raphic screen ing BI-RAD S: 1 (Negat anabel) Lay letter mailed to asad emmie WSN: [id number] Orderi ng Physic heather: Kaiden Finch Dictat ed By: Rachael Samuel MD Dictat ed Date/T mahnaz: 4:25 pm Review ed By: Rachael Samuel MD Signed By: Rachael Samuel MD Signed Date/T mahnaz: 4:25 pm Transc ribed By: GUCCI Transc riptio jeni Date/T mahnaz: 4:20 pm Birads : Asad olea Class: Outpat ient [id number] [facility] ([facility]) [address], [place], [address], 11/21/2022 08:42:46 12/08/02/13/2023 MRI, brain , w/o contr ast No observ ation record ed. GONZALEZ [facility] ([facility]) [address], [place], [address], 02/17/2023 11:37:26 Result Notes None recorded. Problems Name Problem SNOMED Code Status Onset Date Resolution Date Notes Provider Name and Address Organization Details Recorded Time Allergic rhinitis 91407407 Active 2012 Kelsey turpin [facility] 8 08:41:05 Patient status finding [id number] Completed 201212/25/2015 Ewa turpin [facility] 6 11:19:16 Screenin g for malignan t neoplasm of breast Completed 201209/21/2013 RECORDED 08/21/19 13 9:15AM BY PEDRO PABLO SELLERS ON/ADDEN DUM Shwetha Mederosedy turpin [facility] 6 09:58:38 Bunion [id number] Completed 201109/21/2013 RECORDED 02/13/20 12 10:37AM BY IGLESIA MORA MA, ANNOTATI ON/ADDEN DUM Shwetha Gatito turpin [facility] 6 09:58:38 Burn [id number] Completed 201209/21/2013 IMPRESSI ON: HEALING WELL; RECORDED 02/23/20 13 9:43AM BY IGLESIA MORA MA, ANNOTATI ON/ADDEN DUM Shwetha Mederosedy turpin [facility] 6 09:58:38 Screenin g for malignan t neoplasm of cervix Completed 201109/21/2013 RECORDED 02/13/20 12 10:37AM BY IGLESIA MORA MA, ANNOTATI ON/ADDEN DUM Shwetha Gatito turpin [facility] 6 09:58:38 Adult health examinat ion Completed 201209/21/2013 IMPRESSI ON: PAP AND MAMMO UTD, PT IS DOING WELL, WILL ADD VITAMIN D; RECORDED 08/21/19 13 9:15AM BY STACIA GIORDANO, ANNOTATI ON/ADDEN DUM Shwetha turpin [facility] 6 09:58:38 Pure hypercho lesterol emia [id number] Completed 201201/12/2020 Ewa turpin [facility] 0 09:24:32 Impacted cerumen [id number] Completed 201209/21/2013 RECORDED 02/23/20 13 9:43AM BY IGLESIA MORA MA, ANNOTATI ON/ADDEN DUM Shwetha turpin [facility] 6 09:58:38 Lymphade nopathy 14739923 Completed 201201/06/2019 Ewa turpin [facility] 9 10:28:50 Administ ration of bacteria l and viral vaccine Completed 201009/21/2013 RECORDED 07/10/19 11 9:35AM BY STACIA GIORDANO, HISTORIC AL SUMMARY Shwetha turpin [facility] 6 09:58:38 Skin sensatio n disturba mne [id number] Completed 201212/25/2015 STORY: CHRONIC LEFT ARM; RECORDED 02/23/20 13 11:00AM BY EVANGELINA BRYANT, OFFICE VISIT Ewa turipn [facility] 6 11:19:29 Pre-surg umm evaluati on Completed 201109/21/2013 IMPRESSI ON: PT IS AT LOW CARDIOPU LMONARY RISK. GIVEN PT'S CERVICAL SPINE HISTORY, INTUBATI ON COULD BE PROBLEMA TIC BUT ACCORDIN G TO PODIATRI ST OFFICE LOCAL ANESTHIA WITH STANDBY SEDATION IS BEING GIVEN. SO THE NEED FOR INTUBATI ON WOULD ONLY BE IN EMERGENC Y. 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 THERE WAS VOCAL CORD TRAUMA FROM THIS PROCEDUR E.; RECORDED 02/13/20 12 10:37AM BY IGLESIA MORA MA, ANNOTATI ON/ADDEN DUM Shwethaedy turpin [facility] 6 09:58:38 Acute stress disorder [id number] Completed 201209/21/2013 IMPRESSI ON: AFTER SUDDEN LOSS OF FATHER. CLOSE FAMILY AND FRIENDS FOR SUPPORTS . CURRENTL Y DECLINES ANY FURTHER TX.; RECORDED 02/23/20 13 9:43AM BY IGLESIA MORA MA, ANNOTATI ON/ADDEN DUM Shwetha turpin [facility] 6 09:58:38 Eruption [id number] Completed 201209/21/2013 IMPRESSI ON: FACIAL, SET UP APPT WITH DERM; RECORDED 02/23/20 13 9:43AM BY IGLESIA OMRA MA, ANNOTAYAKA ON/ADDEN DUM Shwetha turpin [facility] 6 09:58:38 Influenz a vaccine needed [id number] 06 Completed 201109/21/2013 RECORDED 02/13/20 12 10:42AM BY IGLESIA MORA MA, OFFICE VISIT Shwetha turpin [facility] 6 09:58:38 Arthrode sis Completed 201109/21/2013 IMPRESSI ON: LIMITED ROM, UNABLE TO GEOVANNA ND SLEEP FLAT, WILL SET UP APPT WITH NERUOSUBrett MEDINA, MAY NEED SHUNT; RECORDED 02/13/20 12 10:37AM BY IGLESIA MORA MA, ANNOTATI ON/ADDEN DUM Shwetha turpin [facility] 6 09:58:38 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 2012 Kelsey turpin [facility] 8 08:40:52 Syringom yelia and syringob ulbia [id number] Active 2012 Kelsey turpin [facility] 8 08:40:43 Varicose veins of lower extremit y 13894446 Completed 201209/21/2013 IMPRESSI ON: LEFT LEG, HURT HER PT TO SEE DR HOOVER; RECORDED 02/23/20 13 9:43AM BY IGLESIA MORA MA, PEDRO PABLO ON/ADDEN DUM Shwetha Mederos null, [facility] 6 09:58:38 Dizzines s and giddines s [id number] Completed 201201/01/2018 IMPRESSI ON: MILD VERTIGO SXS, CONGESTI ON AND EAR PRESSURE . NO CLEAR SIGNS FO RIDDHI, LIKELY MORE ET BACK UP FROM FREQ CRYING. ADVISED RE USE OF MECLIZIN E, NASAL SALINE. MAY ADD NASAL CS IF LITTLE EFFECT. SHE WILL CALL ME IN 1 WEEK WITH UPDATE, SOONER PNR.; RECORDED 02/23/20 13 9:43AM BY IGLESIA MORA MA, OFFICE VISIT REILLY Sellers, [facility] 8 09:54:27 Screenin g for malignan t neoplasm of breast Completed 201210/14/2013 RECORDED 08/21/19 13 9:15AM BY PEDRO PABLO SELLERS ON/ADDEN DUM Shwetha turpin [facility] 6 09:58:38 Bunion [id number] Completed 201110/14/2013 RECORDED 02/13/20 12 10:37AM BY IGLESIA MORA MA, ANNOTATI ON/ADDEN DUM Shwetha Mederosedy turpin [facility] 6 09:58:38 Burn [id number] Completed 201210/14/2013 IMPRESSI ON: HEALING WELL; RECORDED 02/23/20 13 9:43AM BY IGLESIA MORA MA, ANNOTATI ON/ADDEN DUM Shwetha Mederosedy turpin, [facility] 6 09:58:38 Screenin g for malignan t neoplasm of cervix Completed 201110/14/2013 RECORDED 02/13/20 12 10:37AM BY IGLESIA MORA MA, ANNOTATI ON/ADDEN DUM Shwetha Mederosedy turpin [facility] 6 09:58:38 Adult health examinat ion Completed 201210/14/2013 IMPRESSI ON: PAP AND MAMMO UTD, PT IS DOING WELL, WILL ADD VITAMIN D; RECORDED 08/21/19 13 9:15AM BY PEDRO PABLO SELLERS ON/ADDEN DUM Shwethaedy Mederos null, [facility] 6 09:58:38 Impacted cerumen [id number] Completed 201210/14/2013 RECORDED 02/23/20 13 9:43AM BY IGLESIA MORA MA, ANNOTATI ON/ADDEN DUM Shwetha Mederos null, [facility] 6 09:58:38 Administ ration of bacteria l and viral vaccine Completed 201010/14/2013 RECORDED 07/10/19 11 9:35AM BY STACIA GIORDANO, HISTORIC AL SUMMARY Shwetha turpin, [facility] 6 09:58:38 Pre-surg umm evaluati on Completed 201110/14/2013 IMPRESSI ON: PT IS AT LOW CARDIOPU LMONARY RISK. GIVEN PT'S CERVICAL SPINE HISTORY, INTUBATI ON COULD BE PROBLEMA TIC BUT ACCORDIN G TO PODIATRI ST OFFICE LOCAL ANESTHIA WITH STANDBY SEDATION IS BEING GIVEN. SO THE NEED FOR INTUBATI ON WOULD ONLY BE IN EMERGENC Y. 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 THERE WAS VOCAL CORD TRAUMA FROM THIS PROCEDUR E.; RECORDED 02/13/20 12 10:37AM BY IGLESIA MORA MA, ANNOTATI ON/ADDEN DUM Shwetha Mederos null, [facility] 6 09:58:38 Acute stress disorder [id number] Completed 201210/14/2013 IMPRESSI ON: AFTER SUDDEN LOSS OF FATHER. CLOSE FAMILY AND FRIENDS FOR SUPPORTS . CURRENTL Y DECLINES ANY FURTHER TX.; RECORDED 02/23/20 13 9:43AM BY IGLESIA MORA MA, ANNOTATI ON/ADDEN DUM Shwetha Mederos null, [facility] 6 09:58:38 Eruption [id number] Completed 201210/14/2013 IMPRESSI ON: REACTION TO BAND-AID ; RECORDED 02/23/20 13 9:43AM BY IGLESIA MORA MA, PEDRO PABLO ON/ADDEN DUM Shwethaedy turpin, [facility] 6 09:58:38 Influenz a vaccine needed [id number] 06 Completed 201110/14/2013 RECORDED 02/13/20 12 10:42AM BY IGLESIA MORA MA, OFFICE VISIT Shwetha turpin [facility] 6 09:58:38 Arthrode sis Completed 201110/14/2013 IMPRESSI ON: LIMITED ROM, UNABLE TO GEOVANNA ND SLEEP FLAT, WILL SET UP APPT WITH STANTON MEDINA, MAY NEED SHUNT; RECORDED 02/13/20 12 10:37AM BY IGLESIA MORA MA, PEDRO PABLO ON/ADDEN DUM Shwethadey Mederos null, [facility] 6 09:58:38 Varicose veins of lower extremit y [id number] Completed 201210/14/2013 IMPRESSI ON: LEFT LEG, HURT HER PT TO SEE DR HOOVER; RECORDED 02/23/20 13 9:43AM BY IGLESIA MORA MA, PEDRO PABLO ON/ADDEN DUM Shwetha turpin, [facility] 6 09:58:38 Screenin g for malignan t neoplasm of breast Completed 201210/15/2013 RECORDED 08/21/19 13 9:15AM BY PEDRO PABLO SELLERS ON/ADDEN DUM Shwetha Mederos null [facility] 6 09:58:38 Bunion [id number] Completed 201110/15/2013 RECORDED 02/13/20 12 10:37AM BY IGLESIA MORA MA, PEDRO PABLO ON/ADDEN DUM Shwetha Mederos null [facility] 6 09:58:38 Burn [id number] Completed 201210/15/2013 IMPRESSI ON: HEALING WELL; RECORDED 02/23/20 13 9:43AM BY IGLESIA MORA MA, ANNOTATI ON/ADDEN DUM Shwetha turpin, [facility] 6 09:58:38 Screenin g for malignan t neoplasm of cervix Completed 201110/15/2013 RECORDED 02/13/20 12 10:37AM BY IGLESIA MORA MA, ANNOTATI ON/ADDEN DUM Shwethaedy Mederos null, [facility] 6 09:58:38 Adult health examinat ion Completed 201210/15/2013 IMPRESSI ON: PAP AND MAMMO UTD, PT IS DOING WELL, WILL ADD VITAMIN D; RECORDED 08/21/19 13 9:15AM BY PEDRO PABLO SELLERS ON/ADDEN DUM Shwetha turpin [facility] 6 09:58:38 Impacted cerumen [id number] Completed 201210/15/2013 RECORDED 02/23/20 13 9:43AM BY IGLESIA MORA MA, ANNOTATI ON/ADDEN DUM Shwetha Mederos null, [facility] 6 09:58:38 Administ ration of bacteria l and viral vaccine Completed 201010/15/2013 RECORDED 07/10/19 11 9:35AM BY STACIA GIORDANO, HISTORIC AL SUMMARY Shwetha turpin [facility] 6 09:58:38 Pre-surg umm evaluati on Completed 201110/15/2013 IMPRESSI ON: PT IS AT LOW CARDIOPU LMONARY RISK. GIVEN PT'S CERVICAL SPINE HISTORY, INTUBATI ON COULD BE PROBLEMA TIC BUT ACCORDIN G TO PODIATRI ST OFFICE LOCAL ANESTHIA WITH STANDBY SEDATION IS BEING GIVEN. SO THE NEED FOR INTUBATI ON WOULD ONLY BE IN EMERGENC Y. 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 THERE WAS VOCAL CORD TRAUMA FROM THIS PROCEDUR E.; RECORDED 02/13/20 12 10:37AM BY IGLESIA MORA MA, PEDRO PABLO ON/ADDEN DUM Shwetha turpin [facility] 6 09:58:38 Acute stress disorder [id number] Completed 201210/15/2013 IMPRESSI ON: AFTER SUDDEN LOSS OF FATHER. CLOSE FAMILY AND FRIENDS FOR SUPPORTS . CURRENTL Y DECLINES ANY FURTHER TX.; RECORDED 02/23/20 13 9:43AM BY IGLESIA MORA MA, PEDRO PABLO ON/ADDEN DUM Shwetha turpin, [facility] 6 09:58:38 Eruption [id number] Completed 201210/15/2013 IMPRESSI ON: REACTION TO BAND-AID ; RECORDED 02/23/20 13 9:43AM BY IGLESIA MORA MA, PEDRO PABLO ON/ADDEN DUM Shwetha turpin, [facility] 6 09:58:38 Influenz a vaccine needed [id number] 06 Completed 201110/15/2013 RECORDED 02/13/20 12 10:42AM BY IGLESIA MORA MA, OFFICE VISIT Shwetha turpin [facility] 6 09:58:38 Arthrode sis Completed 201110/15/2013 IMPRESSI ON: LIMITED ROM, UNABLE TO GEOVANNA ND SLEEP FLAT, WILL SET UP APPT WITH [facility], MAY NEED SHUNT; RECORDED 02/13/20 12 10:37AM BY IGLESIA MORA MA, PEDRO PABLO ON/ADDEN DUM Shwetha turpin [facility] 6 09:58:38 Varicose veins of lower extremit y [id number] Completed 201210/15/2013 IMPRESSI ON: LEFT LEG, HURT HER PT TO SEE DR HOOVER; RECORDED 02/23/20 13 9:43AM BY IGLESIA MORA MA, PEDRO PABLO ON/ADDEN DUM Shwetha turpin, [facility] 6 09:58:38 Backache 447297300 Active fusion in C2-C3-> no operatio ns LISANDRO BHUMI, MD [address], [place], [address] , [facility], [place] 3 09:51:39 Sleep apnea 32391526 Active 2021 Ewa turpin, [facility] 2 15:42:31 Benign paroxysm al position al vertigo 827215434 Active 2022 Jose Luis Munoz, PAS[facility] [address], [place], [address] , [facility], [place] 3 15:47:29 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
--- OUTSIDE RECORDS SUMMARY | 2024-05-12 08:27 | XMS_ITS | Patient Health Record ---
Author Organization [facility] Address [address] [place] [address] Care Team Providers Care Supervisor Billposting Name Role Phone BHUMI HURD, LISANDRO Primary Care Provider Christina Saeed Unavailable [phone] Allergies No Known Allergies Results Component Value Reference Range Notes Urinalysis Reviewed date:06/23/2023 11:43:46 AM Interpretation: Performing Lab: Notes/Report: PH 7.0 PROTEIN TR GLUCOSE NEG BLOOD NEG [id number] IGP No Culture 30 Plus Reviewed date:06/25/2023 05:14:44 PM Interpretation: Performing Lab:[facility] [place], [address], [address], [place], Phone - [phone], Director - [facility] Notes/Report: Clinical Information:VAGINAL/CERVICAL:LMP> [id number] LMP / Prev Treat...[id number] Dates / Results....04/27/20 NEGHPV No. of containers..01 ThinPrep Vial DIAGNOSIS: NEGATIVE FOR IN TRAEPITHELIAL LESION OR MALIGNANCY. Specimen adequacy: Satisfact ory for evaluation. No endocervical component is identified. Clinician provided ICD10: Z0 1.419 Performed by: Jorge zhou, Sales Agent Protective Service (ASCP) . . Note: The Pap smear is [...] [address], [address], [place], Phone - [phone], Director - [facility] Notes/Report: Clinical Information:VAGINAL/CERVICAL:LMP> [id number] LMP / Prev Treat...[id number] Dates / Results....04/27/20 NEGHPV No. of containers..01 ThinPrep Vial Reason For Referral No Information Medications Medication SIG (Take, Route, Frequency, Duration) [...] with Men only Prevention strategies discussed: Condoms Problems Problem Type SNOMED Code ICD Code Onset Dates Problem Status W/U Status Risk Notes Problem Age-related osteoporosis (722580605) Age-related osteoporosis without current pathological fracture (M81.0) Active confirmed Problem Urinary incontinence (628572717) Unspecified urinary incontinence (R32) Active confirmed Problem Postcoital bleeding (00271971) Postcoital and contact bleeding (N93.0) Active confirmed Problem SI - Stress incontinence (07929087) Stress incontinence (female) (male) (N39.3) Active confirmed Problem 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) Active confirmed Major Problem Gynecological examination normal (744720281009639) Routine gynecological examination (V72.31) Active confirmed Major Vital Signs Temperature 97.8 degrees Fahrenheit 06/23/2023 110/ 78 Blood pressure diastolic 78 mm Hg 06/23/2023 110 /78 Height 62.5 in 06/23/2023 110 Blood pressure systolic 110 mm Hg 06/23/2023 110/ 78 Weight 144 lbs 06/23/2023 110/78 BMI 25.92 kg/m2 06/23/2023 110/78 Encounters Encounter Location Date Provider Diagnosis [address] [place] [address] 06/23/2023 Christina Maldonado Encounter for gynecological examination [...] IMPACT ON HER HEALTH. CONTINUE SEEING HER MOTION PICTURE CAMERAMAN AND CONTINUE FOSAMAX. ADEQUATE CALCIUM AND VIT D. WEIGHT BEARING EXERCISES. OSTEO PRECAUTIONS. REPEAT BMD IN 2023. 06/23/2023 Dense breasts, unspecified (ICD-10 - R92.30) DISCUSSED DENSE BREASTS ON MAMMOGRAM AND ITS IMPLICATIONS. 3D MAMMOGRAMS WERE RECOMMENDED. Plan Of Treatment Pending Test Test Name Order Date Test, Urine 04/20/2014 Urinalysis 11/04/2019 CX POLYP 04/20/2014 THIN PREP,HPV,ANNE IF HPV+ (>29YR)(SCRN) 06/24/2017 BONE DENSITY 06/23/2023 MM Digital Mammo Screening 11/04/2019 MM Digital Mammo Screening 12/08/2020 MM Digital Mammo Screening 04/02/2022 MM Digital Mammo Screening 06/23/2023 Next Appt Details Provider Name:Christina pitts, 06/23/2024 09:20:00 AM, [address], [address], [place], [address], Insurance Providers Payer Name Payer Address Payer Phone Subscriber Number Group Number Insured Name Patient Relationship to Insured Coverage Start Date Coverage End Date [facility] [address] [place] [address] [id number] JERED SINGLETARY Self - patient is the insured Medical (General) History Medical History History ICD Code Other congenital malformations of spine, 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 3 Mammographic heterogeneous density, bila teral breasts R92.333 Surgical History Surgery Date(Month/Year) Bunionectomy Spinal Fusion Cervical Polypectomy 2014 Colonoscopy 08/2021 Hospitalization History Reason Date(Month/Year) Fall, Cracked Rib 03/05/20 See Surgical Hx 2 Vaginal Deliveries
== END 2024-05-12 08:32 | disposition home or self-care (01) ==
PROVIDERS: PCP Physician Assistant; Visit Provider Psychiatry & Neurology Neurology
DX: G43.809 Other migraine, not intractable, without status migrainosus (principal); M79.644 Pain in right finger(s)
CPT/HCPCS: 99214

== ENCOUNTER → 2024-06-29 17:28 | Outpatient (BNV) | payer OTHER, SELFPAY | PROVIDERS: PCP Student in an Organized Health Care Education/Training Program; Visit Provider Radiology Diagnostic Radiology | DX: G95.0 Syringomyelia and syringobulbia (principal) | CPT/HCPCS: 72141 ==

== ENCOUNTER 2024-06-29 17:29 | Outpatient (REF) | payer OTHER, SELFPAY ==
--- NOTE | ~2024-06-29 | MR_ITS ---
EXAMINATION: MR CERVICAL SPINE WITHOUT CONTRAST CLINICAL INFORMATION: Klippel-Feil syndrome COMPARISON: MRI from an outside institution dated March 21, 2022. TECHNIQUE: MRI of the cervical spine was obtained using routine sequences without contrast. FINDINGS: Craniocervical junction demonstrates flattening and foreshortening of the clivus with protrusion of the odontoid process of C2 upon the ventral and inferior aspect of the mel. There is an S-shaped curvature of the cervical thoracic spine limiting the patient's positioning on the MRI scanner. There is fusion of C2-C3 and to a lesser extent C4 vertebral bodies. There is an expansile CSF signal abnormality within the center of the cervical spinal cord extending from the inferior aspect of the medulla oblongata to the upper thoracic segment with a maximum dimension of 12 mm at C6-7 level. There is thinning of the peripheral aspect of the spinal cord with the questionable incomplete morphology pattern in the left dorsal aspect at the upper thoracic spinal cord segment. Status post suboccipital and posterior upper neck midline incision with the paramagnetic field distortion in the occipital bone and posterior elements from C2 to C5. There is no central spinal canal stenosis or cord compression throughout the included axial skeleton. There is no pseudomeningocele. There is no gross neuroforamina stenosis. Flow-void signal within the main vessels is normal. The right vertebral artery is dominant. 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 Overall no gross change. Electronically signed by: Gerardo Lopez MD 06/30/2024 05:56 AM EDT
--- OUTSIDE RECORDS SUMMARY | 2024-06-29 19:05 | XMS_ITS | Patient Health Record ---
Author Organization [facility] Address [address] [place] [address] Care Team Providers Care Aluminum Pourer Name Role Phone BHUMI HURD, LISANDRO Primary Care Provider Christina Saeed Unavailable [phone] Allergies No Known Allergies Results Component Value Reference Range Notes Urinalysis Reviewed date:06/23/2024 12:29:38 PM Interpretation: Performing Lab: Notes/Report: PH 5.0 PROTEIN Neg GLUCOSE Neg BLOOD Moderate Reason For Referral No Information Medications Medication SIG (Take, Route, Frequency, Duration) Notes Start Date End Date Status Norethindrone Acetate 5 MG 1 tablet Orally DAILY FOR 10 DAYS IF NO MENSES Q 3 MONTHS for 90 days 06/23/2024 Active SUMAtriptan Succinate 50 MG Oral for 30 Days Active Prolia 60 MG/ML as directed Subcutaneous Twice a year Due in August 01: Active Social History Tobacco Use: Social History Observation Description Date Details (start date - stop date) Never Smoker NA - NA Sexual History Question Answer Notes Had sex in the past 12 months (vaginal, oral, or anal)? Yes with Men only Prevention strategies discussed: Condoms AUDIT-C (Standard) Question Answer Notes Did you have a drink containing alcohol in the p ast year? No Points 0 Interpretation Negative Tobacco Control (Standard) Question Answer Notes Tobacco use: Nonsmoker Problems Problem Type SNOMED Code ICD Code Onset Dates Problem Status W/U Status Risk Notes Problem Age-related osteoporosis (313259653) Age-related osteoporosis without current pathological fracture (M81.0) Active confirmed Problem Urinary incontinence (061505873) Unspecified urinary incontinence (R32) Active confirmed Problem Postcoital bleeding (31553401) Postcoital and contact bleeding (N93.0) Active confirmed Problem Unspecified menopausal and perimenopausal disorder (N95.9) Active confirmed Problem SI - Stress incontinence (79623230) Stress incontinence (female) (male) (N39.3) Active confirmed Problem 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) Active confirmed Major Problem Gynecological examination normal (003136239847666) Routine gynecological examination (V72.31) Active confirmed Major Vital Signs Temperature 97.5 degrees Fahrenheit 06/23/2024 Blood pressure diastolic 80 mm Hg 06/23/2024 Height 62.5 in 06/23/2024 Blood pressure systolic 124 mm Hg 06/23/2024 Weight 141 lbs 06/23/2024 BMI 25.38 kg/m2 06/23/2024 Encounters Encounter Location Date Provider Diagnosis [address] [address] 06/23/2024 Christina Maldonado Encounter for gynecological examination (general) (routine) without abnormal findings Z01.419 ; Encounter for screening mammogram for malignant neoplasm of breast Z12.31 ; Unspecified menopausal and perimenopausal disorder N95.9 ; Age-related osteoporosis without current pathological fracture M81.0 and Dense breasts, unspecified R92.30 Assessments Encounter Date Diagnosis (ICD Code) Assessment Notes Treatment Notes Treatment Clinical Notes Section Notes 06/23/2024 Encounter for gynecological examination (general) (routine) without abnormal findings (ICD-10 - Z01.419) NO PAP TEST, DUE IN 2026. 06/23/2024 Encounter for screening mammogram for malignant neoplasm of breast (ICD-10 - Z12.31) REGULAR MAMMOGRAMS AND SBE'S WERE RECOMMENDED. 06/23/2024 Unspecified menopausal and perimenopausal disorder (ICD-10 - N95.9) DISCUSSED PERIMENOPAUSE AND MENOPAUSE AND SYMPTOMS ASSOCIATED WITH THESE. MONITOR MENSES CLOSELY AND CALL IF ABNORMAL. RECOMMENDED AYGESTIN 5 MG DAILY FOR 10 DAYS IF NO MENSE FOR 3 MONTHS OR LONGER. DETAILED INSTUCTIONS WERE GIVEN. 06/23/2024 Age-related osteoporosis without current pathological fracture (ICD-10 - M81.0) DISCUSSED OSTEOPOROSIS AND ITS IMPACT ON HER HEALTH. ADEQUATE CALCIUM AND VIT D. WEIGHT BEARING EXERCISES. OSTEO PRECAUTIONS. CONTINUE PROLIA. REPAT BMD IN 2025. 06/23/2024 Dense breasts, unspecified (ICD-10 - R92.30) DISCUSSED DENSE BREASTS ON MAMMOGRAM AND ITS IMPLICATIONS. 3D MAMMOGRAMS WERE RECOMMENDED. Plan Of Treatment Pending Test Test Name Order Date Test, Urine 04/20/2014 Urinalysis 11/04/2019 CX POLYP 04/20/2014 THIN PREP,HPV,ANNE IF HPV+ (>29YR)(SCRN) 06/24/2017 BONE DENSITY 06/23/2023 MM Digital Mammo Screening 06/23/2024 MM Digital Mammo Screening 11/04/2019 MM Digital Mammo Screening 12/08/2020 MM Digital Mammo Screening 04/02/2022 MM Digital Mammo Screening 06/23/2023 Next Appt Details Provider Name:Christina Burciaga hong, 06/24/2025 09:20:00 AM, [address], [address], [place], [address], Insurance Providers Payer Name Payer Address Payer Phone Subscriber Number Group Number Insured Name Patient Relationship to Insured Coverage Start Date Coverage End Date [facility] [address] [place] [address] [id number] JERED SINGLETARY Self - patient is the insured Medical (General) History Medical History History ICD Code Other congenital malformations of spine, 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 3 Mammographic heterogeneous density, bila teral breasts R92.333 Dense breasts, unspecified R92.30 Age-related osteoporosis without current pathological fracture M81.0 Other specified disorders of bone densit y and structure, multiple sites M85.89 Surgical History Surgery Date(Month/Year) Bunionectomy Spinal Fusion Cervical Polypectomy 2014 Colonoscopy 08/2021 Hospitalization History Reason Date(Month/Year) Fall, Cracked Rib 03/05/20 See Surgical Hx 2 Vaginal Deliveries
--- OUTSIDE RECORDS SUMMARY | 2024-06-29 19:05 | XMS_ITS | Patient Health Record ---
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 Plan Of Treatment Pending Test Test Name Order Date X ray : Foot, right 3V 09/25/2020 Insurance Providers Payer Name Payer Address Payer Phone Subscriber Number Group Number Insured Name Patient Relationship to Insured Coverage Start Date Coverage End Date [facility] [address] [facility] [place] [id number] Ford Jung Jr Spouse - patient is the spouse of the insured Medical (General) History Medical History History ICD Code Broken bones Headaches Numbness Joint implants/screws Surgical History Surgery Date(Month/Year) spine surgery 2004 bunionectomy 2011
--- OUTSIDE RECORDS SUMMARY | 2024-06-29 19:05 | XMS_ITS ---
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 :1970???Age:53 Y???Sex:Female D ate:04/04/2023 Address:[address] [place] [address], [id number] Pcp:LISANDRO TRIPATHI MD Subjective: * Chief Complaints: * ???1. 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 * Medical History:? Objective: * Vitals:? Assessment: Plan: * Treatment: * Images: Billing Information: * Visit Code:? * Procedure Codes:? * Electronic signature of Kitty Maldonado MD on 06/29/2024 at 07:05 PM EDT Sign off status: Pending * Appointment Provider:?Christina Maldonado M.D. Date:?04/04/2023 Generated for Faby mazariegos/Lakisha/Mary Ann on:?06/29/2024 07:05 PM EDT
--- OUTSIDE RECORDS SUMMARY | 2024-06-29 19:05 | XMS_ITS ---
Author Organization [facility] Address [address] [place] [address] Care Team Providers Care Deputy Clerk Name Role Phone LISANDRO TRIPATHI MD Primary Care Provider Kyra MaldonadoMargaretli Unavailable [phone] Allergies No Known Allergies Results Component Value Reference Range Notes Urinalysis Reviewed date:06/23/2023 11:43:46 AM Interpretation: Performing Lab: Notes/Report: PH 7.0 PROTEIN TR GLUCOSE NEG BLOOD NEG [id number] IGP No Culture 30 Plus Reviewed date:06/25/2023 05:14:44 PM Interpretation: Performing Lab:[facility] [place], [address], [address], [place], Phone - [phone], Director - [facility] Notes/Report: Clinical Information:VAGINAL/CERVICAL:LMP> [id number] LMP / Prev Treat...[id number] Dates / Results....04/27/20 NEGHPV No. of containers..01 ThinPrep Vial DIAGNOSIS: NEGATIVE FOR IN TRAEPITHELIAL LESION OR MALIGNANCY. Specimen adequacy: Satisfact ory for evaluation. No endocervical component is identified. Clinician provided ICD10: Z0 1.419 Performed by: Jorge zhou, Lot Worker ([facility]) . . Note: The Pap smear is [...] [address], [address], [place], Phone - [phone], Director - [facility] Notes/Report: Clinical Information:VAGINAL/CERVICAL:LMP> [id number] LMP / Prev Treat...[id number] Dates / Results....04/27/20 NEGHPV No. 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 CONTINUE SEEING HER INCENDIARIES SUPERVISOR AND CONTINUE FOSAMAX. ADEQUATE CALCIUM AND VIT [...] IMPACT ON HER HEALTH. CONTINUE SEEING HER INCENDIARIES SUPERVISOR AND CONTINUE FOSAMAX. ADEQUATE CALCIUM AND VIT D. WEIGHT BEARING EXERCISES. OSTEO PRECAUTIONS. REPEAT BMD IN 2023. Dense breasts, unspecified DISCUSSED DENSE BREASTS ON MAMMOGRAM AND ITS IMPLICATIONS. 3D MAMMOGRAMS WERE RECOMMENDED. Pending Test Test Name Order Date BONE DENSITY 06/23/2023 MM Digital Mammo Screening 06/23/2023 Next Appt Details Follow Up: 1 Year, Reason: Provider Name:Christina pitts, 06/24/2025 09:20:00 AM, [address], [address], [place], [address], Progress Notes * LIV SINGLETARYOB:1970 (53 yo F)Acc No.[id number]:06/23/2023 PROGRESS NOTES Patient:?JERED SINGLETARY Appointment Provider:?Christina pitts M.D. :1970???Age:53 Y???Sex:Female D ate:06/23/2023 Address:[address], , [place] Pcp:LISANDRO TRIPATHI MD Subjective: * Chief Complaints: * ???Annual SPACE CONTROLLER PhysicalAnnual SPACE CONTROLLER Physical 50-59* * HPI: ???New/Follow-up Patient Consult:? PAT CONTINUES TO HAVE REGULAR MENSES.? SHE DENIES ANY MENOPAUSAL SYMPTOMS.? SHE DENIES DYSPAREUNIA. SHE IS KNOWN TO BE OSTEOPOROTIC AND SEES A INCENDIARIES SUPERVISOR, DR JACOME, WHO? PLACED HER ON FOSAMAX [...] adequate calcium via diet and supplementation ?Significant SPACE CONTROLLER problems:?no significant outboard motorboat operator symptoms or problems * ROS:?general:?no?chest pain.?no?palpitations.?no?headache.?no?cough.?no?shortness of breath.?no?fever.?no?unexplained weight loss.?no?nausea/vomiting.?no?change in bowel movements.?no blood in stool.?no?genitourinary complaints.?no?skin complaints.? * Medical History:? 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 CONTINUE SEEING HER INCENDIARIES SUPERVISOR AND CONTINUE FOSAMAX. ADEQUATE CALCIUM AND VIT [...] * Images: Billing Information: * Visit Code:? 55005 Preventive Care New Pt. Age 40-64. 03015 Preventive Care Est Pt. Age 40-64. * Procedure Codes:? * Sign off status: Completed true * Appointment Provider:?Christina Maldonado M.D. Date:?06/23/2023 Generated for Faby mazariegos/Lakisha/Melanieitting on:?06/29/2024 07:05 PM EDT History and Physical Notes * HPI (History of Present Illness) Category Sub-Category Detail Notes Category Not es New/Follow-up Patient Consult PAT CONTINUES TO HAVE REGULAR MENSES. SHE DENIES ANY MENOPAUSAL SYMPTOMS. SHE DENIES DYSPAREUNIA. SHE IS KNOWN TO BE OSTEOPOROTIC AND SEES A INCENDIARIES SUPERVISOR, DR JACOME, WHO PLACED HER ON FOSAMAX [...] ate calcium via diet and supplementation Significant SPACE CONTROLLER problems:: n o significant outboard motorboat operator symptoms or problems Examination Category Sub-Category Detail Notes Category Not es General Exam CONSTITUTIONAL: General Appearan ce:: alert, in no acute distress, normal, well nourished NECK/THYROID: Inspection/Palpation:: normal Thyroid:: normal size and shape RESPIRATORY: Auscultation: clear to auscultation bilaterally, Respiratory Effort: normal CARDIOVASCULAR: Auscultation: regula r rate and rhythm GASTROINTESTINAL: Abdomen:: no masses, nontender , nondistended Liver and Spleen:: normal Hernias:: no hernias present, no inguina l adenopathy MUSCULOSKELETAL: Inspection/Palpation:: no clubb ing, cyanosis, or edema SKIN: Skin:: normal NEURO/PSYCH: Orientation:: time , place, pers on Mood/Affect:: normal BREAST, Right: Inspection/Palpation :: no discharge, no [...]
--- OUTSIDE RECORDS SUMMARY | 2024-06-29 19:06 | XMS_ITS | Data Portability ---
Author Organization [facility], Main Office Address [address] [facility] [facility] [facility] [place] [address] Care Team Providers Care Supervisor Forming And Tempering Name Role Phone CARLEE FLORES Neurosurgeon PARK PEÑALOZA Loading Machine Tool Setter [phone] EBONY NOBLE Primary Care Provider JONI KABA Manager Car [phone] NELI MCQUEEN Referring Provider Assessment No assessment recorded. Plan of Treatment Reminders Order Date Submit Date Provider Last Modified By Organization Details Last Modified Time Details Appointments None recorded. Lab lipid panel, serum 2024 025 GONZALEZ [facility], [address] [place], [address], 5 06:07:51 BMP, serum or plasma 2024 025 GONZALEZ [facility], [address] [place], [address], 5 06:07:50 CBC w/ auto diff 2024 025 OGNZALEZ [facility], [address], [place], [address], 5 06:07:49 TSH, ultra-sens itive, serum 2024 025 GONZALEZ [facility], [address], [place], [address], 5 06:07:51 lipid panel, serum 2023 024 GONZALEZ [facility], [address], [place], [address], 4 06:08:10 vitamin B12, serum 2023 024 GONZALEZ [facility], [address], [place], [address], 4 06:08:11 BMP, serum or plasma 2023 024 GONZALEZ [facility], [address], [place], [address], 4 06:08:10 CBC w/ auto diff 2023 024 GONZALEZ [facility], [address], [place], [address], 4 06:08:09 TSH, ultra-sens itive, serum 2023 024 GONZALEZ [facility], [address], [place], [address], 4 06:08:11 Referral hand surgeon referral - 2nd digit 2024 025 [facility], [address], [address], [place], [address], 5 09:54:45 Procedures None recorded. Surgeries None recorded. Imaging MRI, brain, w/o contrast - pt having different headache than usual and worse at night 2022 023 [facility] [address], [place], [address], 3 11:07:19 Medication Orders meclizine 12.5 mg tablet 2022 023 [email or web address] 3 [id number], [address] [place] [address], [id number], 10:10:30 Patient TargetsNo targets recorded. Patient Instructions Encounter Date Encounter Id Patient Instructions Last Modified By Organization Details Last Modified Time 11/19/2022 [id number] eustachian tube problems: care instructions jthabet Not available 11/19/2022 15:49:46 benign paroxysma l positional vertigo (bppv): care instructions jthabet Not available 11/19/2022 15:49:46 To call or retur n for worsening or concerns jthabet Not available 11/19/2022 15:49:53 02/10/2023 [id number] medical record request* Not available 02/17/2023 13:02:51 05/19/2023 [id number] osteoporosis: care instructions Not available 05/19/2023 09:59:45 medical record request* Not available 05/28/2023 13:20:00 11/13/2023 [id number] medical record request* Not available 11/20/2023 10:23:01 05/20/2024 [id number] osteoporosis: care instructions Not available 05/20/2024 09:16:20 allergies: care instructions Not available 05/20/2024 09:16:21 medical record request* Not available 05/20/2024 11:40:11 sleep apnea: car e instructions Not available 05/20/2024 09:16:21 Reason for Referral Hand Surgeon Referral for Pa in in finger of right hand 2nd digit Referring Physician: Ebony Noble, Family Medicine, Encounter Date: 05/20/2024 Results Created Date Observation Date Name Description Value Unit Range Abnormal Flag Note LastModifiedBy Organization Detail LastModifiedTime 05/20/1905/21/2023 CBC WITH DIFFE RENTI AL/PL ATELE T WBC 6.2 x10e3 /uL 3.4-10 .8 Not Available [facility] ([facility]) [address] [facility] [facility], [place], [address], 05/21/2023 06:08:09 05/20/1905/21/2023 CBC WITH DIFFE RENTI AL/PL ATELE T RBC 4.68 x10e6 /uL 3.77-5 .28 Not Available [facility] ([facility]) [address] [facility], [place], [address], 05/21/2023 06:08:09 05/20/19 24 05/21/2023 CBC WITH DIFFE RENTI AL/PL ATELE T hemoglobin 14.0 g/dL 11.1-1 5.9 Not Available [facility] ([facility]) [address] [facility], [place], [address], 05/21/2023 06:08:09 05/20/1905/21/2023 CBC WITH DIFFE RENTI AL/PL ATELE T hematocrit 42.5 % 34.0-4 6.6 Not Available [facility] ([facility]) [address] [place], [address], 05/21/2023 06:08:09 05/20/19 24 05/21/2023 CBC WITH DIFFE RENTI AL/PL ATELE T MCV 91 fL 79-97 Not Available [facility] ([facility]) [address] [place], [address], 05/21/2023 06:08:09 05/20/19 24 05/21/2023 CBC WITH DIFFE RENTI AL/PL ATELE T MCH 29.9 pg 26.6-3 3.0 Not Available [facility] ([facility]) [address] [place], [address], 05/21/2023 06:08:09 05/20/1905/21/2023 CBC WITH DIFFE RENTI AL/PL ATELE T MCHC 32.9 g/dL 31.5-3 5.7 Not Available [facility] ([facility]) [address] [place], [address], 05/21/2023 06:08:09 05/20/19 24 05/21/2023 CBC WITH DIFFE RENTI AL/PL ATELE T RDW 12.1 % 11.7-1 5.4 Not Available [facility] ([facility]) [address] [facility], [place], [address], 05/21/2023 06:08:09 05/20/19 24 05/21/2023 CBC WITH DIFFE RENTI AL/PL ATELE T platelets 264 x10e3 /uL 150-45 0 Not Available [facility] ([facility]) [address] [facility], [place], [address], 05/21/2023 06:08:09 05/20/19 24 05/21/2023 CBC WITH DIFFE RENTI AL/PL ATELE T neutrophils 56 % not estab. Not Available [facility] ([facility]) [address] [facility], [place], [address], 05/21/2023 06:08:09 05/20/19 24 05/21/2023 CBC WITH DIFFE RENTI AL/PL ATELE T lymphs 32 % not estab. Not Available [facility] ([facility]) [address] [facility], [place], [address], 05/21/2023 06:08:09 05/20/19 24 05/21/2023 CBC WITH DIFFE RENTI AL/PL ATELE T monocytes 9 % not estab. Not Available [facility] ([facility]) [address] [facility], [place], [address], 05/21/2023 06:08:09 05/20/19 24 05/21/2023 CBC WITH DIFFE RENTI AL/PL ATELE T eos 2 % not estab. Not Available [facility] ([facility]) [address] [facility], [place], [address], 05/21/2023 06:08:09 05/20/19 24 05/21/2023 CBC WITH DIFFE RENTI AL/PL ATELE T basos 1 % not estab. Not Available [facility] ([facility]) [address] [facility], [place], [address], 05/21/2023 06:08:09 05/20/19 24 05/21/2023 CBC WITH DIFFE RENTI AL/PL ATELE T immature cells WOOL BROKER Not Available [facility] ([facility]) [address] [facility], [place], [address], 05/21/2023 06:08:09 05/20/19 24 05/21/2023 CBC WITH DIFFE RENTI AL/PL ATELE T neutrophils (absolute) 3.4 x10e3 /uL 1.4-7. 0 Not Available [facility] ([facility]) [address] [facility], [place], [address], 05/21/2023 06:08:09 05/20/19 24 05/21/2023 CBC WITH DIFFE RENTI AL/PL ATELE T lymphs (absolute) 2.0 x10e3 /uL 0.7-3. 1 Not Available [facility] ([facility]) [address] [facility], [place], [address], 05/21/2023 06:08:09 05/20/19 24 05/21/2023 CBC WITH DIFFE RENTI AL/PL ATELE T monocytes(ab solute) 0.5 x10e3 /uL 0.1-0. 9 Not Available [facility] ([facility]) [address] [place], [address], 05/21/2023 06:08:09 05/20/19 24 05/21/2023 CBC WITH DIFFE RENTI AL/PL ATELE T eos (absolute) 0.1 x10e3 /uL 0.0-0. 4 Not Available [facility] ([facility]) [address] [place], [address], 05/21/2023 06:08:09 05/20/19 24 05/21/2023 CBC WITH DIFFE RENTI AL/PL ATELE T baso (absolute) 0.1 x10e3 /uL 0.0-0. 2 Not Available [facility] ([facility]) [address] [facility], [place], [address], 05/21/2023 06:08:09 05/20/19 24 05/21/2023 CBC WITH DIFFE RENTI AL/PL ATELE T immature granulocytes 0 % not estab. Not Available [facility] ([facility]) [address] [facility], [place], [address], 05/21/2023 06:08:09 05/20/19 24 05/21/2023 CBC WITH DIFFE RENTI AL/PL ATELE T immature grans (abs) 0.0 x10e3 /uL 0.0-0. 1 Not Available [facility] ([facility]) [address] [facility], [place], [address], 05/21/2023 06:08:09 05/20/19 24 05/21/2023 CBC WITH DIFFE RENTI AL/PL ATELE T NRBC WOOL BROKER Not Available [facility] ([facility]) [address] [facility], [place], [address], 05/21/2023 06:08:09 05/20/19 24 05/21/2023 CBC WITH DIFFE RENTI AL/PL ATELE T hematology comments: WOOL BROKER Not Available [facility] ([facility]) [address] [facility], [place], [address], 05/21/2023 06:08:09 05/20/19 24 05/21/2023 BASIC METAB OLIC PANEL (8) glucose 80 mg/dL 70-99 Not Available [facility] ([facility]) [address] [place], [address], 05/21/2023 06:08:10 05/20/19 24 05/21/2023 BASIC METAB OLIC PANEL (8) BUN 13 mg/dL 6-24 Not Available [facility] ([facility]) [address] [place], [address], 05/21/2023 06:08:10 05/20/19 24 05/21/2023 BASIC METAB OLIC PANEL (8) creatinine 0.80 mg/dL 0.57-1 .00 Not Available [facility] ([facility]) [address] [facility], [place], [address], 05/21/2023 06:08:10 05/20/19 24 05/21/2023 BASIC METAB OLIC PANEL (8) eGFR 89 mL/mi n/1.7 3 >59 Not Available [facility] ([facility]) [address] [facility], [place], [address], 05/21/2023 06:08:10 05/20/19 24 05/21/2023 BASIC METAB OLIC PANEL (8) BUN/creatini ne ratio 16 9-23 Not Available [facility] ([facility]) [address] [facility], [place], [address], 05/21/2023 06:08:10 05/20/19 24 05/21/2023 BASIC METAB OLIC PANEL (8) sodium 138 mmol/ L 134-14 4 Not Available [facility] ([facility]) [address] [place], [address], 05/21/2023 06:08:10 05/20/19 24 05/21/2023 BASIC METAB OLIC PANEL (8) potassium 4.6 mmol/ L 3.5-5. 2 Not Available [facility] ([facility]) [address] [place], [address], 05/21/2023 06:08:10 05/20/19 24 05/21/2023 BASIC METAB OLIC PANEL (8) chloride 100 mmol/ L 96-106 Not Available [facility] ([facility]) [address] [facility], [place], [address], 05/21/2023 06:08:10 05/20/19 24 05/21/2023 BASIC METAB OLIC PANEL (8) carbon dioxide, total 22 mmol/ L 20-29 Not Available [facility] ([facility]) [address] [place], [address], 05/21/2023 06:08:10 05/20/19 24 05/21/2023 BASIC METAB OLIC PANEL (8) calcium 9.4 mg/dL 8.7-10 .2 Not Available [facility] ([facility]) [address] [place], [address], 05/21/2023 06:08:10 05/20/19 24 05/21/2023 LIPID PANEL cholesterol, total 189 mg/dL 100-19 9 Not Available [facility] ([facility]) [address] [place], [address], 05/21/2023 06:08:10 05/20/19 24 05/21/2023 LIPID PANEL triglyceride s 79 mg/dL 0-149 Not Available [facility] ([facility]) [address] [place], [address], 05/21/2023 06:08:10 05/20/19 24 05/21/2023 LIPID PANEL HDL cholesterol 73 mg/dL >39 Not Available [facility] ([facility]) [address] [place], [address], 05/21/2023 06:08:10 05/20/19 24 05/21/2023 LIPID PANEL VLDL cholesterol lizett 14 mg/dL 5-40 Not Available [facility] ([facility]) [address] [place], [address], 05/21/2023 06:08:10 05/20/19 24 05/21/2023 LIPID PANEL LDL chol calc ([facility]) 102 mg/dL 0-99 above high normal Not Available [facility] ([facility]) [address] [place], [address], 05/21/2023 06:08:10 05/20/19 24 05/21/2023 LIPID PANEL comment: WOOL BROKER Not Available [facility] ([facility]) [address] [facility], [place], [address], 05/21/2023 06:08:10 05/20/19 24 05/21/2023 TSH RFX ON ABNOR MAL TO FREE T4 TSH 1.630 uIU/m L 0.450- 4.500 Not Available [facility] ([facility]) [address] [facility], [place], [address], 05/21/2023 06:08:11 05/20/19 24 05/21/2023 VITAM IN B12 vitamin B12 1153 pg/mL 232-12 45 Not Available [facility] ([facility]) [address] [facility], [place], [address], 05/21/2023 06:08:11 05/21/19 25 05/20/2024 CBC WITH DIFFE RENTI AL/PL ATELE T WBC 6.3 x10e3 /uL 3.4-10 .8 normal Not Available [facility] ([facility]) [address] [facility], [place], [address], 05/21/2024 06:07:49 05/21/19 25 05/20/2024 CBC WITH DIFFE RENTI AL/PL ATELE T RBC 4.52 x10e6 /uL 3.77-5 .28 normal Not Available [facility] ([facility]) [address] [facility], [place], [address], 05/21/2024 06:07:49 05/21/19 25 05/20/2024 CBC WITH DIFFE RENTI AL/PL ATELE T hemoglobin 14.1 g/dL 11.1-1 5.9 normal Not Available [facility] ([facility]) [address] [facility], [place], [address], 05/21/2024 06:07:49 05/21/19 25 05/20/2024 CBC WITH DIFFE RENTI AL/PL ATELE T hematocrit 41.3 % 34.0-4 6.6 normal Not Available [facility] ([facility]) [address] [place], [address], 05/21/2024 06:07:49 05/21/19 25 05/20/2024 CBC WITH DIFFE RENTI AL/PL ATELE T MCV 91 fL 79-97 normal Not Available [facility] ([facility]) [address] [place], [address], 05/21/2024 06:07:49 05/21/19 25 05/20/2024 CBC WITH DIFFE RENTI AL/PL ATELE T MCH 31.2 pg 26.6-3 3.0 normal Not Available [facility] ([facility]) [address] [place], [address], 05/21/2024 06:07:49 05/21/19 25 05/20/2024 CBC WITH DIFFE RENTI AL/PL ATELE T MCHC 34.1 g/dL 31.5-3 5.7 normal Not Available [facility] ([facility]) [address] [place], [address], 05/21/2024 06:07:49 05/21/19 25 05/20/2024 CBC WITH DIFFE RENTI AL/PL ATELE T RDW 11.7 % 11.7-1 5.4 Not Available [facility] ([facility]) [address] [place], [address], 05/21/2024 06:07:49 05/21/19 25 05/20/2024 CBC WITH DIFFE RENTI AL/PL ATELE T platelets 243 x10e3 /uL 150-45 0 normal Not Available [facility] ([facility]) [address] [place], [address], 05/21/2024 06:07:49 05/21/19 25 05/20/2024 CBC WITH DIFFE RENTI AL/PL ATELE T neutrophils 57 % not estab. normal Not Available [facility] ([facility]) [address] [facility], [place], [address], 05/21/2024 06:07:49 05/21/19 25 05/20/2024 CBC WITH DIFFE RENTI AL/PL ATELE T lymphs 33 % not estab. normal Not Available [facility] ([facility]) [address] [facility], [place], [address], 05/21/2024 06:07:49 05/21/19 25 05/20/2024 CBC WITH DIFFE RENTI AL/PL ATELE T monocytes 8 % not estab. normal Not Available [facility] ([facility]) [address] [facility], [place], [address], 05/21/2024 06:07:49 05/21/19 25 05/20/2024 CBC WITH DIFFE RENTI AL/PL ATELE T eos 1 % not estab. normal Not Available [facility] ([facility]) [address] [facility], [place], [address], 05/21/2024 06:07:49 05/21/19 25 05/20/2024 CBC WITH DIFFE RENTI AL/PL ATELE T basos 1 % not estab. normal Not Available [facility] ([facility]) [address] [place], [address], 05/21/2024 06:07:49 05/21/19 25 05/20/2024 CBC WITH DIFFE RENTI AL/PL ATELE T immature cells WOOL BROKER Not Available [facility] ([facility]) [address] [place], [address], 05/21/2024 06:07:49 05/21/19 25 05/20/2024 CBC WITH DIFFE RENTI AL/PL ATELE T neutrophils (absolute) 3.6 x10e3 /uL 1.4-7. 0 normal Not Available [facility] ([facility]) [address] [place], [address], 05/21/2024 06:07:49 05/21/19 25 05/20/2024 CBC WITH DIFFE RENTI AL/PL ATELE T lymphs (absolute) 2.1 x10e3 /uL 0.7-3. 1 normal Not Available [facility] ([facility]) [address] [facility], [place], [address], 05/21/2024 06:07:49 05/21/19 25 05/20/2024 CBC WITH DIFFE RENTI AL/PL ATELE T monocytes(ab solute) 0.5 x10e3 /uL 0.1-0. 9 normal Not Available [facility] ([facility]) [address] [facility], [place], [address], 05/21/2024 06:07:49 05/21/19 25 05/20/2024 CBC WITH DIFFE RENTI AL/PL ATELE T eos (absolute) 0.1 x10e3 /uL 0.0-0. 4 normal Not Available [facility] ([facility]) [address] [facility], [place], [address], 05/21/2024 06:07:49 05/21/19 25 05/20/2024 CBC WITH DIFFE RENTI AL/PL ATELE T baso (absolute) 0.1 x10e3 /uL 0.0-0. 2 normal Not Available [facility] ([facility]) [address] [facility], [place], [address], 05/21/2024 06:07:49 05/21/19 25 05/20/2024 CBC WITH DIFFE RENTI AL/PL ATELE T immature granulocytes 0 % not estab. Not Available [facility] ([facility]) [address] [facility], [place], [address], 05/21/2024 06:07:49 05/21/19 25 05/20/2024 CBC WITH DIFFE RENTI AL/PL ATELE T immature grans (abs) 0.0 x10e3 /uL 0.0-0. 1 Not Available [facility] ([facility]) [address] [place], [address], 05/21/2024 06:07:49 05/21/19 25 05/20/2024 CBC WITH DIFFE RENTI AL/PL ATELE T NRBC WOOL BROKER Not Available [facility] ([facility]) [address] [place], [address], 05/21/2024 06:07:49 05/21/19 25 05/20/2024 CBC WITH DIFFE RENTI AL/PL ATELE T hematology comments: WOOL BROKER Not Available [facility] ([facility]) [address] [place], [address], 05/21/2024 06:07:49 05/21/19 25 05/21/2024 BASIC METAB OLIC PANEL (8) glucose 58 mg/dL 70-99 below low normal Not Available [facility] ([facility]) [address] [place], [address], 05/21/2024 06:07:50 05/21/19 25 05/21/2024 BASIC METAB OLIC PANEL (8) BUN 11 mg/dL 6-24 normal Not Available [facility] ([facility]) [address] [place], [address], 05/21/2024 06:07:50 05/21/19 25 05/21/2024 BASIC METAB OLIC PANEL (8) creatinine 0.76 mg/dL 0.57-1 .00 normal Not Available [facility] ([facility]) [address] [place], [address], 05/21/2024 06:07:50 05/21/19 25 05/21/2024 BASIC METAB OLIC PANEL (8) eGFR 94 mL/mi n/1.7 3 >59 normal Not Available [facility] ([facility]) [address] [place], [address], 05/21/2024 06:07:50 05/21/19 25 05/21/2024 BASIC METAB OLIC PANEL (8) BUN/creatini ne ratio 14 9-23 normal Not Available [facility] ([facility]) [address] [place], [address], 05/21/2024 06:07:50 05/21/19 25 05/21/2024 BASIC METAB OLIC PANEL (8) sodium 139 mmol/ L 134-14 4 normal Not Available [facility] ([facility]) [address] [place], [address], 05/21/2024 06:07:50 05/21/19 25 05/21/2024 BASIC METAB OLIC PANEL (8) potassium 3.9 mmol/ L 3.5-5. 2 normal Not Available [facility] ([facility]) [address] [place], [address], 05/21/2024 06:07:50 05/21/19 25 05/21/2024 BASIC METAB OLIC PANEL (8) chloride 99 mmol/ L 96-106 normal Not Available [facility] ([facility]) [address] [place], [address], 05/21/2024 06:07:50 05/21/19 25 05/21/2024 BASIC METAB OLIC PANEL (8) carbon dioxide, total 21 mmol/ L 20-29 normal Not Available [facility] ([facility]) [address] [place], [address], 05/21/2024 06:07:50 05/21/19 25 05/21/2024 BASIC METAB OLIC PANEL (8) calcium 8.8 mg/dL 8.7-10 .2 normal Not Available [facility] ([facility]) [address] [place], [address], 05/21/2024 06:07:50 05/21/19 25 05/21/2024 LIPID PANEL cholesterol, total 199 mg/dL 100-19 9 normal Not Available [facility] ([facility]) [address] [place], [address], 05/21/2024 06:07:50 05/21/19 25 05/21/2024 LIPID PANEL triglyceride s 53 mg/dL 0-149 normal Not Available [facility] ([facility]) [address] [facility], [place], [address], 05/21/2024 06:07:50 05/21/19 25 05/21/2024 LIPID PANEL HDL cholesterol 71 mg/dL >39 normal Not Available [facility] ([facility]) [address] [place], [address], 05/21/2024 06:07:50 05/21/19 25 05/21/2024 LIPID PANEL VLDL cholesterol lizett 10 mg/dL 5-40 Not Available [facility] ([facility]) [address] [place], [address], 05/21/2024 06:07:50 05/21/19 25 05/21/2024 LIPID PANEL LDL chol calc ([facility]) 118 mg/dL 0-99 above high normal Not Available [facility] ([facility]) [address] [facility], [place], [address], 05/21/2024 06:07:50 05/21/19 25 05/21/2024 LIPID PANEL LDL calc comment: WOOL BROKER Not Available [facility] ([facility]) [address] [facility], [place], [address], 05/21/2024 06:07:50 05/21/1905/21/2024 TSH RFX ON ABNOR MAL TO FREE T4 TSH 0.958 uIU/m L 0.450- 4.500 normal Not Available [facility] ([facility]) [address] [place], [address], 05/21/2024 06:07:51 09/13/20 23 11/20/2022 MAMMO , scree kenneth, digit al, bilat [...] (Negat anabel) Lay letter mailed to asad olea WSN: [id number] Orderi ng Physic heather: Kaiden Finch Dictat ed By: Rachael Samuel MD Dictat ed Date/T mahnaz: 4:25 pm Review ed By: Rachael Samuel MD Signed By: Rachael Samuel MD Signed Date/T mahnaz: 4:25 pm Transc ribed By: GUCCI Transc riptio jeni Date/T mahnaz: 4:20 pm Birads : Asad olea Class: Outpat ient [email or web address] [facility] ([facility]) [address] [facility] [facility], [place], [address], 11/21/2022 08:42:46 02/15/20 23 02/13/2023 MRI, brain , w/o contr ast No observ ation record ed. [facility] [address], [place], [address], 02/17/2023 11:37:26 Result Notes None recorded. Problems Name Problem SNOMED Code Status Onset Date Resolution Date Notes Provider Name and Address Organization Details Recorded Time Allergic rhinitis 80985110 Active 2012 Kelsey Jacqueline turpin, [facility] 8 08:41:05 Patient status finding 564020905 Completed 201212/25/2015 Ewa turpin [facility] 6 11:19:16 Screenin g for malignan t neoplasm of breast Completed 201209/21/2013 RECORDED 08/21/19 13 9:15AM BY PEDRO PABLO SELLERS ON/ADDEN DUM Shwetha Mederos dyana [facility] 6 09:58:38 Bunion [id number] Completed 201109/21/2013 RECORDED 02/13/20 12 10:37AM BY IGLESIA MORA MA, ANNOTATI ON/ADDEN DUM Shwetha Mederos null, [facility] 6 09:58:38 Burn [id number] Completed 201209/21/2013 IMPRESSI ON: HEALING WELL; RECORDED 02/23/20 13 9:43AM BY IGLESIA MORA MA, ANNOTATI ON/ADDEN DUM Shwetha Mederos dyana [facility] 6 09:58:38 Screenin g for malignan t neoplasm of cervix Completed 201109/21/2013 RECORDED 02/13/20 12 10:37AM BY IGLESIA MORA MA, PEDRO PABLO ON/ADDEN DUM Shwetha Mederos dyana [facility] 6 09:58:38 Adult health examinat ion Completed 201209/21/2013 IMPRESSI ON: PAP AND MAMMO UTD, PT IS DOING WELL, WILL ADD VITAMIN D; RECORDED 08/21/19 13 9:15AM BY STACIA GIORDANO, ANNOTATI ON/ADDEN DUM Shwetha turpin [facility] 6 09:58:38 Pure hypercho lesterol emia [id number] Completed 201201/12/2020 Ewa Dionna turpin [facility] 0 09:24:32 Impacted cerumen [id number] Completed 201209/21/2013 RECORDED 02/23/20 13 9:43AM BY IGLESIA MORA MA, ANNOTATI ON/ADDEN DUM Shwetha turpin [facility] 6 09:58:38 Lymphade nopathy [id number] Completed 201201/06/2019 Ewa turpin [facility] 9 10:28:50 Administ ration of bacteria l and viral vaccine Completed 201009/21/2013 RECORDED 07/10/19 11 9:35AM BY STACIA GIORDANO, HISTORIC AL SUMMARY Shwetha turpin [facility] 6 09:58:38 Skin sensatio n disturba wve [id number] Completed 201212/25/2015 STORY: CHRONIC LEFT ARM; RECORDED 02/23/20 13 11:00AM BY EVANGELINA BRYANT, OFFICE VISIT Ewa Dionna turpin [facility] 6 11:19:29 Pre-surg umm evaluati on Completed [...] MORA MA, ANNOTATI ON/ADDEN DUM Shwetha turpin, [facility] 6 09:58:38 Acute stress disorder [id number] Completed 201209/21/2013 IMPRESSI ON: AFTER SUDDEN LOSS OF FATHER. CLOSE FAMILY AND FRIENDS FOR SUPPORTS . CURRENTL Y DECLINES ANY FURTHER TX.; RECORDED 02/23/20 13 9:43AM BY IGLESIA MORA MA, ANNOTATI ON/ADDEN JULIANNA turpin [facility] 6 09:58:38 Eruption [id number] Completed 201209/21/2013 IMPRESSI ON: FACIAL, SET UP APPT WITH DERM; RECORDED 02/23/20 13 9:43AM BY IGLESIA MORA MA, ANNOTATI ON/ADDEN JULIANNA turpin [facility] 6 09:58:38 Influenz a vaccine needed [id number] Completed 201109/21/2013 RECORDED 02/13/20 12 10:42AM BY IGLESIA MORA MA, OFFICE VISIT Shwetha turpin [facility] 6 09:58:38 Arthrode sis Completed 201109/21/2013 IMPRESSI ON: LIMITED ROM, UNABLE TO GEOVANNA ND SLEEP FLAT, WILL SET UP APPT WITH [facility], MAY NEED SHUNT; RECORDED 02/13/20 12 10:37AM BY IGLESIA MORA MA, ANNOTATI ON/ADDEN [facility] Shwetha turpin [facility] 6 09:58:38 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 2012 Kelsey turpin [facility] 8 08:40:52 Syringom yelia and syringob ulbia 568654689 Active 2012 Kelsey turpin [facility] 8 08:40:43 Varicose veins of lower extremit y 26875078 Completed 201209/21/2013 IMPRESSI ON: LEFT LEG, HURT HER PT TO SEE DR HOOVER; RECORDED 02/23/20 13 9:43AM BY IGLESIA MORA MA, ANNOTATI ON/ADDEN DUM Shwetha Mederos null, [facility] 6 09:58:38 Dizzines s and giddines s 950873898 Completed 201201/01/2018 IMPRESSI ON: MILD VERTIGO SXS, [...] IGLESIA MORA MA, OFFICE VISIT REILLY Sellers, [facility] 8 09:54:27 Screenin g for malignan t neoplasm of breast Completed 201210/14/2013 RECORDED 08/21/19 13 9:15AM BY PEDRO PABLO SELLERS ON/ADDEN DUM Shwetha Mederos null, [facility] 6 09:58:38 Bunion 729955390 Completed 201110/14/2013 RECORDED 02/13/20 12 10:37AM BY IGLESIA MORA MA, PEDRO PABLO ON/ADDEN DUM Shwetha Mederos null, [facility] 6 09:58:38 Burn [id number] Completed 201210/14/2013 IMPRESSI ON: HEALING WELL; RECORDED 02/23/20 13 9:43AM BY IGLESIA MORA MA, PEDRO PABLO ON/ADDEN DUM Shwetha Mederos null, [facility] 6 09:58:38 Screenin g for malignan t neoplasm of cervix Completed 201110/14/2013 RECORDED 02/13/20 12 10:37AM BY IGLESIA MORA MA, ANNOTAYAKA ON/ADDEN DUM Shwetha Mederos null, [facility] 6 09:58:38 Adult health examinat ion Completed 201210/14/2013 IMPRESSI ON: PAP AND MAMMO UTD, PT IS DOING WELL, WILL ADD VITAMIN D; RECORDED 08/21/19 13 9:15AM BY PEDRO PABLO SELLERS ON/ADDEN DUM Shwetha turpin, [facility] 6 09:58:38 Impacted deepak 02459501 Completed 201210/14/2013 RECORDED 02/23/20 13 9:43AM BY IGLESIA MORA MA, ANNOTATI ON/ADDEN DUM Shwetha Mederos null, [facility] 6 09:58:38 Administ ration of bacteria l and viral vaccine Completed 201010/14/2013 RECORDED 07/10/19 11 9:35AM BY STACIA GIODRANO, HISTORIC AL SUMMARY Shwetha turpin, [facility] 6 09:58:38 Pre-surg umm evaluati on Completed [...] MA, PEDRO PABLO ON/ADDEN DUM Shwetha turpin, [facility] 6 09:58:38 Acute stress disorder 63791808 Completed 201210/14/2013 IMPRESSI ON: AFTER SUDDEN LOSS OF FATHER. CLOSE FAMILY AND FRIENDS FOR SUPPORTS . CURRENTL Y DECLINES ANY FURTHER TX.; RECORDED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
--- OUTSIDE RECORDS SUMMARY | 2024-06-29 19:06 | XMS_ITS ---
Author Organization [employer] 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 Plan Of Treatment Medication Medication Name Sig Start Date Stop Date Notes Norethindrone Acetate 5 MG 1 tablet Oral ly DAILY FOR 10 DAYS IF NO MENSES Q 3 MONTHS for 90 days 06/23/2024 Treatment Notes Assessment Notes Encounter for gynecological examination (general) (routine) without abnormal findings NO PAP TEST, DUE IN 2026. Encounter for screening mamm ogram for malignant neoplasm of breast REGULAR MAMMOGRAMS AND SBE'S WERE RECOMMENDED. Unspecified menopausal and p erimenopausal disorder DISCUSSED PERIMENOPAUSE AND MENOPAUSE AND SYMPTOMS ASSOCIATED WITH THESE. MONITOR MENSES CLOSELY AND CALL IF ABNORMAL. RECOMMENDED AYGESTIN 5 MG DAILY FOR 10 DAYS IF NO MENSE FOR 3 MONTHS OR LONGER. DETAILED INSTUCTIONS WERE GIVEN. Age-related osteoporosis wit hout current pathological fracture DISCUSSED OSTEOPOROSIS AND ITS IMPACT ON HER HEALTH. ADEQUATE CALCIUM AND VIT D. WEIGHT BEARING EXERCISES. OSTEO PRECAUTIONS. CONTINUE PROLIA. REPAT BMD IN 2025. Dense breasts, unspecified DISCUSSED DENSE BREASTS ON MAMMOGRAM AND ITS IMPLICATIONS. 3D MAMMOGRAMS WERE RECOMMENDED. Pending Test Test Name Order Date MM Digital Mammo Screening 06/23/2024 Next Appt Details Follow Up: 1 Year, Reason: Provider Name:Christina pitts, 06/24/2025 09:20:00 AM, [address] [place] [address], [facility] [place], [address], Progress Notes * LIV SINGLETARYOB:1970 (54 yo F)Acc No.[id number]:06/23/2024 PROGRESS NOTES Patient:?JERED SINGLETARY Appointment Provider:?Christina pitts M.D. :1970???Age:54 Y???Sex:Female D ate:06/23/2024 Address:[address] [place], [place] [id number] Pcp:LISANDRO TRIPATHI MD Subjective: * Chief Complaints: * ??? Annual LICENSED MORTGAGE LOAN OFFICER PhysicalAnnua l LICENSED MORTGAGE LOAN OFFICER Physical 50-59* * HPI: ???New/Follow-up Patient Consult:? PAT HAD REGULAR MENSES IN 2023 BUT IN 2024, SHE HAS BECOME OLIGOMENORRHEIC.? SHE HAD A REGULAR PERIOD IN MAR BUT NO BLEEDING UNTIL June.? SHE HAS TOLERABLE HOT FLASHES AND NIGHT SWEATS. HER LAST MAMMOGRAM DONE IN NOV 2023 SHOWED DENSE BREASTS AND WAS NORMAL.? HER LIFETIME BREAST CA RISK IS 10.2%. HER LAST PAP TEST IN 2023 WAS NEGATIVE AND HPV NEGATIVE.? SHE HAS NO HX OF ABNORMAL PAP TESTS. SHE IS KNOWN TO BE OSTEOPOROTIC AND HAD BEEN ON FOSAMAX.? SHE IS NOW ON PROLIA, GIVEN BY HER PCP.? SHE IS TOLERATING THIS WELL.? HER LAST BMD IN 2023 SHOWED THE LOWEST T-SCORE TO BE -3.2 AT THE [facility]INE. SHE HAD A COLONOSCOPY DONE IN 2021. ???Annual:? Patient presents for annual exam, ages 50-59. ?General Health Maintenance:?Current breast complaints:?no breast pain, mass, discharge, or skin changes ?Urinary problems:?patient reports no urinary health problems or bowel health problems ?Calcium intake:?takes adequate calcium via diet and supplementation ?Significant LICENSED MORTGAGE LOAN OFFICER problems:?no significant side guider symptoms or problems * ROS:?general:?no?chest pain.?no?palpitations.?no?headache.?no?cough.?no?shortness of breath.?no?fever.?no?unexplained weight loss.?no?nausea/vomiting.?no?change in bowel movements.?no blood in stool.?no?genitourinary complaints.?no?skin complaints.? * Medical History:? 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 Control:?condoms.?Colonoscopy?08/2021 Q 10 Years.?Bone Density:?12/03/23, 10/02/21.? * OB History:?Total pregnancies?2.?Total living children?2.?NVD?2.? * Surgical History:?Bunionecto my Spinal Fusion Cervical Polypectomy 2015Colonoscopy 08/2021 * Hospitalization/Major Diagno stic Procedure:?2 Vaginal Deliveries See Surgical Hx Fall, Cracked Rib 03/05/20 * Family History:?Mother: bertram marcano, well.?Father: , Tragic Accident.? * Social History:?Tobacco Use:?Tobacco Control (Standard)?Tobacco use:?Nonsmoker ???Sexual History:?Sexual History?Had sex in the past 12 months (vaginal, oral, or anal)??Yes ?with?Men only ?Prevention strategies discussed:?Condoms ?Details of Sexual History?Are you sexually active??Yes ???Drugs/Alcohol:?Drugs?Have you used drugs other than those for medical reasons in the past 12 months??No ???Miscellaneous:?Children: yes, 2. ?Domestic violence: no. ?Exercise: yes, walking. ?Home smoke detector use: yes. ?Living with: spouse. ?Marital status: . ?Natural support system: yes. 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 ?Others at home: yes. ?Sexual abuse: no. ?Sexually active: yes, monogamous relationship. ?Verbal abuse: no. ???Drug/Alcohol:?AUDIT-C (Standard)?Did you have a drink containing alcohol in the past year??No ?Points?0 ?Interpretation?Negative * Medications:?TakingProlia 60 MG/ML Solution Prefilled Syringe as directed Subcutaneous Twice a year , Notes to Pharmacist: Due in August 01:SUMAtriptan Succinate 50 MG Tablet Oral Taking Prolia 60 MG/ML Solution Prefilled Syringe as directed Subcutaneous Twice a year , Notes to Pharmacist: Due in August 01:Taking SUMAtriptan Succinate 50 MG Tablet Oral DiscontinuedAlendronate Sodium 70 MG Tablet 1 tablet 30 minutes before the first food, beverage or medicine of the day with plain water Orally Medication List reviewed and reconciled with the patientDiscontinued Alendronate Sodium 70 MG Tablet 1 tablet 30 minutes before the first food, beverage or medicine of the day with plain water Orally Medication List reviewed and reconciled with the patient * Allergies:?N.K.D.A.no[Allerg ies Verified] Objective: * Vitals:?Ht: 62.5 in, Wt:141l bs, BMI:25.38Index, BP:124/80mm Hg, Temp:97.5F. * Examination: ???General Exam: ?CONSTITUTIONAL:?General Appearance:?alert, in [...] erythema or lesions present ?CERVIX:?Cervix:?no lesions, nontender bleeding noted per os ?UTERUS:?Uterus:?nontender, normal contour, normal mobility, normal size ?ADNEXA:?Adnexa:?no masses, no tenderness ?ANUS AND PERINEUM:?Anus/Perineum:?visually normal??? Assessment: * Assessment: 1.?Encounter for gynecologic al examination (general) (routine) without abnormal findings - Z01.419???2.?Encounter for screening mammogram for malignant neoplasm of breast - Z12.31???3.?Unspecified menopausal and perimenopausal disorder - N95.9???4.?Age-related osteoporosis without current pathological fracture - M81.0???5.?Dense breasts, unspecified - R92.30??? Plan: * Treatment: ? Value Reference Range ?PH 5.0 * ?PROTEIN Neg * ?GLUCOSE Neg * ?BLOOD Moderate * D., TYLER 06/23/2024 09:28:25 AM EDT > Notes: NO PAP TEST, DUE IN 2026.??2.?Encounter for screening mammogram for malignant neoplasm of breast?Imaging: MM Digital Mammo Screening Notes: REGULAR MAMMOGRAMS AND SBE'S WERE RECOMMENDED.??3.?Unspecified menopausal and perimenopausal disorder? Start Norethindrone Acetate Tablet, 5 MG, 1 tablet, Orally, DAILY FOR 10 DAYS IF NO MENSES Q 3 MONTHS, 90 days, 10 Tablet, Refills 3.?? Notes: DISCUSSED PERIMENOPAUSE AND MENOPAUSE AND SYMPTOMS ASSOCIATED WITH THESE. MONITOR MENSES CLOSELY AND CALL IF ABNORMAL. RECOMMENDED AYGESTIN 5 MG DAILY FOR 10 DAYS IF NO MENSE FOR 3 MONTHS OR LONGER. DETAILED INSTUCTIONS WERE GIVEN.??4.?Age-related osteoporosis without current pathological fracture? Notes: DISCUSSED OSTEOPOROSIS AND ITS IMPACT ON HER HEALTH. ADEQUATE CALCIUM AND VIT D. WEIGHT BEARING EXERCISES. OSTEO PRECAUTIONS. CONTINUE PROLIA. REPAT BMD IN 2025.??5.?Dense breasts, unspecified? Notes: DISCUSSED DENSE BREASTS ON MAMMOGRAM AND ITS IMPLICATIONS. 3D MAMMOGRAMS WERE RECOMMENDED.?? * Procedure Codes:? * Preventive Medicine:? ??YOUR PREVENTIVE WELLNESS PLAN:?Osteoporosis prevention?Calcium, D, strength training.?Breast Cancer Screening (Mammogram):?annually.?Cervical Cancer Screening (Pap Smear):?q 3 years with HPV screen.?Colorectal Cancer Screening:?q 10 years.? * Follow Up:?1 Year * Images: Billing Information: * Visit Code:? 23417 Preventive Care New Pt. Age 40-64. 91660 Preventive Care Est Pt. Age 40-64. * Procedure Codes:? * Sign off status: Completed true * Appointment Provider:?Christina Maldonado M.D. Date:?06/23/2024 Generated for Faby mazariegos/Lakisha/Mary Ann on:?06/29/2024 07:05 PM EDT History and Physical Notes * HPI (History of Present Illness) Category Sub-Category Detail Notes Category Not es New/Follow-up Patient Consult PAT HAD REGULAR MENSES IN 2023 BUT IN 2024, SHE HAS BECOME OLIGOMENORRHEIC. SHE HAD A REGULAR PERIOD IN MAR BUT NO BLEEDING UNTIL June. SHE HAS TOLERABLE HOT FLASHES AND NIGHT SWEATS. HER LAST MAMMOGRAM DONE IN NOV 2023 SHOWED DENSE BREASTS AND WAS NORMAL. HER LIFETIME BREAST CA RISK IS 10.2%. HER LAST PAP TEST IN 2023 WAS NEGATIVE AND HPV NEGATIVE. SHE HAS NO HX OF ABNORMAL PAP TESTS. SHE IS KNOWN TO BE OSTEOPOROTIC AND HAD BEEN ON FOSAMAX. SHE IS NOW ON PROLIA, GIVEN BY HER PCP. SHE IS TOLERATING THIS WELL. HER LAST BMD IN 2023 SHOWED THE LOWEST T-SCORE TO BE -3.2 AT THE SPINE. SHE HAD A COLONOSCOPY DONE IN 2021. Annual General Health Maintenance: Current breast complaints:: no breast pain, mass, discharge, or skin changes Urinary problems:: patient r eports no urinary health problems or bowel health problems Calcium intake:: takes adequ ate calcium via diet and supplementation Significant LICENSED MORTGAGE LOAN OFFICER problems:: n o significant side guider symptoms or problems Examination Category Sub-Category Detail [...] nor mal, no lesions VAGINA: Vagina:: normal appe arance, no abnormal discharge, no lesions BLADDER: Bladder:: no mass, nontender URETHRA: Urethra:: no erythema or lesions present CERVIX: Cervix:: no lesions, nontender b leeding noted per os UTERUS: Uterus:: nontender, normal contour, normal mobility, normal size ADNEXA: Adnexa:: no masses, no tendernes s ANUS AND PERINEUM: Anus/Perineum:: visually norm al
== END 2024-06-29 17:30 | disposition home or self-care (01) ==
LOC: HO.MRI 17:29
PROVIDERS: PCP Student in an Organized Health Care Education/Training Program; Visit Provider Psychiatry & Neurology Neurology
DX: G95.0 Syringomyelia and syringobulbia (principal); Q76.1 Klippel-Feil syndrome
CPT/HCPCS: 72141

== ENCOUNTER 2024-09-16 07:19 | Outpatient (AMB) | payer OTHER, SELFPAY ==
--- OUTSIDE RECORDS SUMMARY | 2023-04-04 06:20 | XMS_ITS ---
Author Organization [employer] Address [address] [facility] [address] [place] [address] Care Team Providers Care Army Manager Name Role Phone BHUMI HURD, LISANDRO Primary Care Provider Christina Saeed Unavailable [phone] REASON FOR VISIT Annual [facility] [facility]ICK Physical Encounters Encounter Location Date Provider Diagnosis [employer] [address] [place] [address] [address] [place] [address] 04/04/2023 Christina Maldonado Plan Of Treatment Next Appt Details Provider Name:Christina pitts, 06/24/2025 09:20:00 AM, [address] [facility], [address], [place], [address], Progress Notes * JENA SINGLETARYJAREKOB:1970 (54 yo F)Acc No.[id number]:04/04/2023 PROGRESS NOTES Patient: JERED REY Appointment Provider: Shi Maldonado M.D. :1970 A ge:53 Y S ex:Female Date:04/04/2023 Address:[address] [place] [address], [id number] Pcp:LISANDRO TRIPATHI MD Subjective: * Chief Complaints: * 1 . Annual MINER PICK Physical. * Medical History: Objective: * Vitals: Assessment: Plan: * Treatment: * Images: Billing Information: * Visit Code: * Procedure Codes: * Electronic signature of Kitty Maldonado MD on 09/16/2024 at 07:21 AM EDT Sign off status: Pending * Appointment Provider: Shi Maldonado M.D. Date: 0 04/04/2023 Generated for Faby mazariegos/Lakisha/Mary Ann on: 0 09/16/2024 07:21 AM EDT
--- OUTSIDE RECORDS SUMMARY | 2024-09-16 07:21 | XMS_ITS | Patient Health Record ---
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
--- OUTSIDE RECORDS SUMMARY | 2024-09-16 07:22 | XMS_ITS | Data Portability ---
Author Organization [facility], Main Office Address [address] [facility] [address] [place] [address] Care Team Providers Care Fish Seiner Name Role Phone CARLEE FLORES Neurosurgeon PARK PEÑALOZA Acid Pumper EBONY NOBLE Primary Care Provider JONI KABA Telecom Manager NELI MCQUEEN Referring Provider [phone] Assessment No assessment recorded. Plan of Treatment Reminders Order Date Submit Date Provider Last Modified By Organization Details Last Modified Time Details Appointments URGENT 2024 11:30A M EBONY NOBLE MD Not available Not available Not available Lab lipid panel, serum 2024 025 [facility], [address] [place], [address], 05/21/2024 06:07:51 BMP, serum or plasma 2024 025 GON[facility]Z [facility], [address] [place], [address], 05/21/2024 06:07:50 CBC w/ auto diff 2024 025 GONZ[facility]Z [facility], [address], [place], [address], 05/21/2024 06:07:49 TSH, ultra-sen sitive, serum 2024 025 GONZALEZ [facility], [address] [place], [address], 05/21/2024 06:07:51 lipid panel, serum 2023 024 GONZ[facility]Z [facility], [address], [place], [address], 05/21/2023 06:08:10 vitamin B12, serum 2023 024 GONZALEZ [facility], [address], [place], [address], 05/21/2023 06:08:11 BMP, serum or plasma 2023 024 GON[facility]Z [facility], [address], [place], [address], 05/21/2023 06:08:10 CBC w/ auto diff 2023 024 GON[facility], [address], [place], [address], 05/21/2023 06:08:09 TSH, ultra-sen sitive, serum 2023 024 GONZALEZ [facility], [address], [place], [address], 05/21/2023 06:08:11 Referral hand surgeon referral - 2nd digit 2024 025 [id number] [facility], [address], [address], [place], [address], 05/24/2024 09:54:45 Procedures None recorded. Surgeries None recorded. Imaging MRI, brain, w/o contrast - pt having different headache than usual and worse at night 2022 023 [facility] ([facility] [address], [place], [address], 02/14/2023 11:07:19 Medication Orders meclizine 12.5 mg tablet 2022 023 [email or web address] [id number], [address] [place] [address], [place], [place], [id number], 02/10/2023 10:10:30 Patient TargetsNo targets recorded. Patient Instructions Encounter Date Encounter Id Patient Instructions Last Modified By Organization Details Last Modified Time 11/19/2022 [id number] eustachian tube problems: care instructions jthabet Not available 11/19/2022 15:49:46 benign paroxysma l positional vertigo (bppv): care instructions jthabet Not available 11/19/2022 15:49:46 To call or retur n for worsening or concerns jthabet Not available 11/19/2022 15:49:53 02/10/2023 [id number] medical record request* Not available 02/17/2023 13:02:51 05/19/2023 [id number] osteoporosis: care instructions Not available 05/19/2023 09:59:45 medical record request* Not available 05/28/2023 13:20:00 11/13/2023 [id number] medical record request* Not available 11/20/2023 10:23:01 05/20/2024 [id number] osteoporosis: care instructions Not available 05/20/2024 09:16:20 [...] Abnormal Flag Note LastModifiedBy Organization Detail LastModifiedTime 05/20/19 24 05/21/2023 CBC WITH DIFFE RENTI AL/PL ATELE T WBC 6.2 x10e3 /uL 3.4-10 .8 Not Available [facility] ([facility]) [address] [facility], [place], [address], 05/21/2023 06:08:09 05/20/19 24 05/21/2023 CBC WITH DIFFE RENTI AL/PL ATELE T RBC 4.68 x10e6 /uL 3.77-5 .28 Not Available [facility] ([facility]) [address] [place], [address], 05/21/2023 06:08:09 05/20/19 24 05/21/2023 CBC WITH DIFFE RENTI AL/PL ATELE T hemoglobin 14.0 g/dL 11.1-1 5.9 Not Available [facility] ([facility]) [address] [place], [address], 05/21/2023 06:08:09 05/20/19 24 05/21/2023 CBC WITH DIFFE RENTI AL/PL ATELE T hematocrit 42.5 % 34.0-4 6.6 Not Available [facility] ([facility]) [address] [place], [address], 05/21/2023 06:08:09 05/20/19 24 05/21/2023 CBC WITH DIFFE RENTI AL/PL ATELE T MCV 91 fL 79-97 Not Available [facility] ([facility]) [address] [place], [address], 05/21/2023 06:08:09 05/20/19 24 05/21/2023 CBC WITH DIFFE RENTI AL/PL ATELE T MCH 29.9 pg 26.6-3 3.0 Not Available [facility] ([facility]) [address] [place], [address], 05/21/2023 06:08:09 05/20/19 24 05/21/2023 CBC WITH DIFFE RENTI AL/PL ATELE T MCHC 32.9 g/dL 31.5-3 5.7 Not Available [facility] ([facility]) [address] [place], [address], 05/21/2023 06:08:09 05/20/19 24 05/21/2023 CBC WITH DIFFE RENTI AL/PL ATELE T RDW 12.1 % 11.7-1 5.4 Not Available [facility] ([facility]) [address] [facility], [place], [address], 05/21/2023 06:08:09 05/20/19 24 05/21/2023 CBC WITH DIFFE RENTI AL/PL ATELE T platelets 264 x10e3 /uL 150-45 0 Not Available [facility] ([facility]) [address] [facility], [place], [address], 05/21/2023 06:08:09 05/20/19 24 05/21/2023 CBC WITH DIFFE RENTI AL/PL ATELE T neutrophils 56 % not estab. Not Available [facility] ([facility]) [address] [facility], [place], [address], 05/21/2023 06:08:09 05/20/19 24 05/21/2023 CBC WITH DIFFE RENTI AL/PL ATELE T lymphs 32 % not estab. Not Available [facility] ([facility]) [address] [facility], [place], [address], 05/21/2023 06:08:09 05/20/19 24 05/21/2023 CBC WITH DIFFE RENTI AL/PL ATELE T monocytes 9 % not estab. Not Available [facility] ([facility]) [address] [facility], [place], [address], 05/21/2023 06:08:09 05/20/19 24 05/21/2023 CBC WITH DIFFE RENTI AL/PL ATELE T eos 2 % not estab. Not Available [facility] ([facility]) [address] [facility], [place], [address], 05/21/2023 06:08:09 05/20/19 24 05/21/2023 CBC WITH DIFFE RENTI AL/PL ATELE T basos 1 % not estab. Not Available [facility] ([facility]) [address] [place], [address], 05/21/2023 06:08:09 05/20/19 24 05/21/2023 CBC WITH DIFFE RENTI AL/PL ATELE T immature cells CONTRACT ADMIN Not Available [facility] ([facility]) [address] [place], [address], 05/21/2023 06:08:09 05/20/19 24 05/21/2023 CBC WITH DIFFE RENTI AL/PL ATELE T neutrophils (absolute) 3.4 x10e3 /uL 1.4-7. 0 Not Available [facility] ([facility]) [address] [facility], [place], [address], 05/21/2023 06:08:09 05/20/19 24 05/21/2023 CBC WITH DIFFE RENTI AL/PL ATELE T lymphs (absolute) 2.0 x10e3 /uL 0.7-3. 1 Not Available [facility] ([facility]) [address] [place], [address], 05/21/2023 06:08:09 05/20/19 24 05/21/2023 CBC WITH DIFFE RENTI AL/PL ATELE T monocytes(ab solute) 0.5 x10e3 /uL 0.1-0. 9 Not Available [facility] ([facility]) [address] [place], [address], 05/21/2023 06:08:09 05/20/19 24 05/21/2023 CBC WITH DIFFE RENTI AL/PL ATELE T eos (absolute) 0.1 x10e3 /uL 0.0-0. 4 Not Available [facility] ([facility]) [address] [place], [address], 05/21/2023 06:08:09 05/20/19 24 05/21/2023 CBC WITH DIFFE RENTI AL/PL ATELE T baso (absolute) 0.1 x10e3 /uL 0.0-0. 2 Not Available [facility] ([facility]) [address] [facility], [place], [address], 05/21/2023 06:08:09 05/20/19 24 05/21/2023 CBC WITH DIFFE RENTI AL/PL ATELE T immature granulocytes 0 % not estab. Not Available [facility] ([facility]) [address] [facility], [place], [address], 05/21/2023 06:08:09 05/20/19 24 05/21/2023 CBC WITH DIFFE RENTI AL/PL ATELE T immature grans (abs) 0.0 x10e3 /uL 0.0-0. 1 Not Available [facility] ([facility]) [address] [facility], [place], [address], 05/21/2023 06:08:09 05/20/19 24 05/21/2023 CBC WITH DIFFE RENTI AL/PL ATELE T NRBC CONTRACT ADMIN Not Available [facility] ([facility]) [address] [place], [address], 05/21/2023 06:08:09 05/20/19 24 05/21/2023 CBC WITH DIFFE RENTI AL/PL ATELE T hematology comments: CONTRACT ADMIN Not Available [facility] ([facility]) [address] [place], [address], 05/21/2023 06:08:09 05/20/19 24 05/21/2023 BASIC METAB OLIC PANEL (8) glucose 80 mg/dL 70-99 Not Available [facility] ([facility]) [address] [place], [address], 05/21/2023 06:08:10 05/20/19 24 05/21/2023 BASIC METAB OLIC PANEL (8) BUN 13 mg/dL 6-24 Not Available [facility] ([facility]) [address] [facility] [place], [address], 05/21/2023 06:08:10 05/20/19 24 05/21/2023 BASIC METAB OLIC PANEL (8) creatinine 0.80 mg/dL 0.57-1 .00 Not Available [facility] ([facility]) [address] [facility] [place], [address], 05/21/2023 06:08:10 05/20/19 24 05/21/2023 BASIC METAB OLIC PANEL (8) eGFR 89 mL/mi n/1.7 3 >59 Not Available [facility] ([facility]) [address] [facility] [place], [address], 05/21/2023 06:08:10 05/20/19 24 05/21/2023 BASIC METAB OLIC PANEL (8) BUN/creatini ne ratio 16 9-23 Not Available [facility] ([facility]) [address] [facility] [place], [address], 05/21/2023 06:08:10 05/20/19 24 05/21/2023 BASIC METAB OLIC PANEL (8) sodium 138 mmol/ L 134-14 4 Not Available [facility] ([facility]) [address] [facility] [place], [address], 05/21/2023 06:08:10 05/20/19 24 05/21/2023 BASIC METAB OLIC PANEL (8) potassium 4.6 mmol/ L 3.5-5. 2 Not Available [facility] ([facility]) [address] [facility] [place], [address], 05/21/2023 06:08:10 05/20/19 24 05/21/2023 BASIC METAB OLIC PANEL (8) chloride 100 mmol/ L 96-106 Not Available [facility] ([facility]) [address] [facility] [place], [address], 05/21/2023 06:08:10 05/20/19 24 05/21/2023 BASIC METAB OLIC PANEL (8) carbon dioxide, total 22 mmol/ L 20-29 Not Available [facility] ([facility]) [address] [place], [address], 05/21/2023 06:08:10 05/20/19 24 05/21/2023 BASIC METAB OLIC PANEL (8) calcium 9.4 mg/dL 8.7-10 .2 Not Available [facility] ([facility]) [address] [place], [address], 05/21/2023 06:08:10 05/20/19 24 05/21/2023 LIPID PANEL cholesterol, total 189 mg/dL 100-19 9 Not Available [facility] ([facility]) [address] [place], [address], 05/21/2023 06:08:10 05/20/19 24 05/21/2023 LIPID PANEL triglyceride s 79 mg/dL 0-149 Not Available [facility] ([facility]) [address] [place], [address], 05/21/2023 06:08:10 05/20/19 24 05/21/2023 LIPID PANEL HDL cholesterol 73 mg/dL >39 Not Available [facility] ([facility]) [address] [place], [address], 05/21/2023 06:08:10 05/20/19 24 05/21/2023 LIPID PANEL VLDL cholesterol lizett 14 mg/dL 5-40 Not Available [facility] ([facility]) [address] [place], [address], 05/21/2023 06:08:10 05/20/19 24 05/21/2023 LIPID PANEL LDL chol calc ([facility]) 102 mg/dL 0-99 above high normal Not Available [facility] ([facility]) [address] [place], [address], 05/21/2023 06:08:10 05/20/19 24 05/21/2023 LIPID PANEL comment: CONTRACT ADMIN Not Available [facility] ([facility]) [address] [facility] [place], [address], 05/21/2023 06:08:10 05/20/19 24 05/21/2023 TSH RFX ON ABNOR MAL TO FREE T4 TSH 1.630 uIU/m L 0.450- 4.500 Not Available [facility] ([facility]) [address] [facility] [place], [address], 05/21/2023 06:08:11 05/20/19 24 05/21/2023 VITAM IN B12 vitamin B12 1153 pg/mL 232-12 45 Not Available [facility] ([facility]) [address] [facility] [place], [address], 05/21/2023 06:08:11 05/21/19 25 05/20/2024 CBC WITH DIFFE RENTI AL/PL ATELE T WBC 6.3 x10e3 /uL 3.4-10 .8 normal Not Available [facility] ([facility]) [address] [place], [address], 05/21/2024 06:07:49 05/21/19 25 05/20/2024 CBC WITH DIFFE RENTI AL/PL ATELE T RBC 4.52 x10e6 /uL 3.77-5 .28 normal Not Available [facility] ([facility]) [address] [facility] [place], [address], 05/21/2024 06:07:49 05/21/19 25 05/20/2024 CBC WITH DIFFE RENTI AL/PL ATELE T hemoglobin 14.1 g/dL 11.1-1 5.9 normal Not Available [facility] ([facility]) [address] [facility] [place], [address], 05/21/2024 06:07:49 05/21/19 25 05/20/2024 CBC WITH DIFFE RENTI AL/PL ATELE T hematocrit 41.3 % 34.0-4 6.6 normal Not Available [facility] ([facility]) [address] [place], [address], 05/21/2024 06:07:49 05/21/1905/20/2024 CBC WITH DIFFE RENTI AL/PL ATELE T MCV 91 fL 79-97 normal Not Available [facility] ([facility]) [address] [place], [address], 05/21/2024 06:07:49 05/21/1905/20/2024 CBC WITH DIFFE RENTI AL/PL ATELE T MCH 31.2 pg 26.6-3 3.0 normal Not Available [facility] ([facility]) [address] [place], [address], 05/21/2024 06:07:49 05/21/19 25 05/20/2024 CBC WITH DIFFE RENTI AL/PL ATELE T MCHC 34.1 g/dL 31.5-3 5.7 normal Not Available [facility] ([facility]) [address] [place], [address], 05/21/2024 06:07:49 05/21/1905/20/2024 CBC WITH DIFFE RENTI AL/PL ATELE T RDW 11.7 % 11.7-1 5.4 Not Available [facility] ([facility]) [address] [place], [address], 05/21/2024 06:07:49 05/21/1905/20/2024 CBC WITH DIFFE RENTI AL/PL ATELE T platelets 243 x10e3 /uL 150-45 0 normal Not Available [facility] ([facility]) [address] [place], [address], 05/21/2024 06:07:49 05/21/19 25 05/20/2024 CBC WITH DIFFE RENTI AL/PL ATELE T neutrophils 57 % not estab. normal Not Available [facility] ([facility]) [address] [facility], [place], [address], 05/21/2024 06:07:49 05/21/19 25 05/20/2024 CBC WITH DIFFE RENTI AL/PL ATELE T lymphs 33 % not estab. normal Not Available [facility] ([facility]) [address] [facility], [place], [address], 05/21/2024 06:07:49 05/21/19 25 05/20/2024 CBC WITH DIFFE RENTI AL/PL ATELE T monocytes 8 % not estab. normal Not Available [facility] ([facility]) [address] [facility], [place], [address], 05/21/2024 06:07:49 05/21/19 25 05/20/2024 CBC WITH DIFFE RENTI AL/PL ATELE T eos 1 % not estab. normal Not Available [facility] ([facility]) [address] [facility], [place], [address], 05/21/2024 06:07:49 05/21/19 25 05/20/2024 CBC WITH DIFFE RENTI AL/PL ATELE T basos 1 % not estab. normal Not Available [facility] ([facility]) [address] [facility], [place], [address], 05/21/2024 06:07:49 05/21/19 25 05/20/2024 CBC WITH DIFFE RENTI AL/PL ATELE T immature cells CONTRACT ADMIN Not Available [facility] ([facility]) [address] [place], [address], 05/21/2024 06:07:49 05/21/19 25 05/20/2024 CBC WITH DIFFE RENTI AL/PL ATELE T neutrophils (absolute) 3.6 x10e3 /uL 1.4-7. 0 normal Not Available [facility] ([facility]) [address] [facility], [place], [address], 05/21/2024 06:07:49 05/21/19 25 05/20/2024 CBC WITH DIFFE RENTI AL/PL ATELE T lymphs (absolute) 2.1 x10e3 /uL 0.7-3. 1 normal Not Available [facility] ([facility]) [address] [facility], [place], [address], 05/21/2024 06:07:49 05/21/19 25 05/20/2024 CBC WITH DIFFE RENTI AL/PL ATELE T monocytes(ab solute) 0.5 x10e3 /uL 0.1-0. 9 normal Not Available [facility] ([facility]) [address] [facility], [place], [address], 05/21/2024 06:07:49 05/21/19 25 05/20/2024 CBC WITH DIFFE RENTI AL/PL ATELE T eos (absolute) 0.1 x10e3 /uL 0.0-0. 4 normal Not Available [facility] ([facility]) [address] [facility], [place], [address], 05/21/2024 06:07:49 05/21/19 25 05/20/2024 CBC WITH DIFFE RENTI AL/PL ATELE T baso (absolute) 0.1 x10e3 /uL 0.0-0. 2 normal Not Available [facility] ([facility]) [address] [place], [address], 05/21/2024 06:07:49 05/21/1905/20/2024 CBC WITH DIFFE RENTI AL/PL ATELE T immature granulocytes 0 % not estab. Not Available [facility] ([facility]) [address] [place], [address], 05/21/2024 06:07:49 05/21/19 25 05/20/2024 CBC WITH DIFFE RENTI AL/PL ATELE T immature grans (abs) 0.0 x10e3 /uL 0.0-0. 1 Not Available [facility] ([facility]) [address] [facility], [place], [address], 05/21/2024 06:07:49 05/21/19 25 05/20/2024 CBC WITH DIFFE RENTI AL/PL ATELE T NRBC CONTRACT ADMIN Not Available [facility] ([facility]) [address] [facility], [place], [address], 05/21/2024 06:07:49 05/21/1905/20/2024 CBC WITH DIFFE RENTI AL/PL ATELE T hematology comments: CONTRACT ADMIN Not Available [facility] ([facility]) [address] [facility], [place], [address], 05/21/2024 06:07:49 05/21/19 25 05/21/2024 BASIC METAB OLIC PANEL (8) glucose 58 mg/dL 70-99 below low normal Not Available [facility] ([facility]) [address] [place], [address], 05/21/2024 06:07:50 05/21/19 25 05/21/2024 BASIC METAB OLIC PANEL (8) BUN 11 mg/dL 6-24 normal Not Available [facility] ([facility]) [address] [place], [address], 05/21/2024 06:07:50 05/21/19 25 05/21/2024 BASIC METAB OLIC PANEL (8) creatinine 0.76 mg/dL 0.57-1 .00 normal Not Available [facility] ([facility]) [address] [place], [address], 05/21/2024 06:07:50 05/21/19 25 05/21/2024 BASIC METAB OLIC PANEL (8) eGFR 94 mL/mi n/1.7 3 >59 normal Not Available [facility] ([facility]) [address] [facility], [place], [address], 05/21/2024 06:07:50 05/21/19 25 05/21/2024 BASIC METAB OLIC PANEL (8) BUN/creatini ne ratio 14 9-23 normal Not Available [facility] ([facility]) [address] [facility], [place], [address], 05/21/2024 06:07:50 05/21/19 25 05/21/2024 BASIC METAB OLIC PANEL (8) sodium 139 mmol/ L 134-14 4 normal Not Available [facility] ([facility]) [address] [facility], [place], [address], 05/21/2024 06:07:50 05/21/19 25 05/21/2024 BASIC METAB OLIC PANEL (8) potassium 3.9 mmol/ L 3.5-5. 2 normal Not Available [facility] ([facility]) [address] [facility], [place], [address], 05/21/2024 06:07:50 05/21/19 25 05/21/2024 BASIC METAB OLIC PANEL (8) chloride 99 mmol/ L 96-106 normal Not Available [facility] ([facility]) [address] [facility] [place], [address], 05/21/2024 06:07:50 05/21/19 25 05/21/2024 BASIC METAB OLIC PANEL (8) carbon dioxide, total 21 mmol/ L 20-29 normal Not Available [facility] ([facility]) [address] [facility] [place], [address], 05/21/2024 06:07:50 05/21/19 25 05/21/2024 BASIC METAB OLIC PANEL (8) calcium 8.8 mg/dL 8.7-10 .2 normal Not Available [facility] ([facility]) [address] [place], [address], 05/21/2024 06:07:50 05/21/19 25 05/21/2024 LIPID PANEL cholesterol, total 199 mg/dL 100-19 9 normal Not Available [facility] ([facility]) [address] [place], [address], 05/21/2024 06:07:50 05/21/19 25 05/21/2024 LIPID PANEL triglyceride s 53 mg/dL 0-149 normal Not Available [facility] ([facility]) [address] [place], [address], 05/21/2024 06:07:50 05/21/19 25 05/21/2024 LIPID PANEL HDL cholesterol 71 mg/dL >39 normal Not Available [facility] ([facility]) [address] [place], [address], 05/21/2024 06:07:50 05/21/19 25 05/21/2024 LIPID PANEL VLDL cholesterol lizett 10 mg/dL 5-40 Not Available [facility] ([facility]) [address] [place], [address], 05/21/2024 06:07:50 05/21/19 25 05/21/2024 LIPID PANEL LDL chol calc ([facility]) 118 mg/dL 0-99 above high normal Not Available [facility] ([facility]) [address] [place], [address], 05/21/2024 06:07:50 05/21/19 25 05/21/2024 LIPID PANEL LDL calc comment: CONTRACT ADMIN Not Available [facility] ([facility]) [address] [place], [address], 05/21/2024 06:07:50 05/21/19 25 05/21/2024 TSH RFX ON ABNOR MAL TO FREE T4 TSH 0.958 uIU/m L 0.450- 4.500 normal Not Available [facility] ([facility]) [address] [place], [address], 05/21/2024 06:07:51 11/21/1911/20/2022 MAMMO , scree kenneth, digit al, [...] Lay letter mailed to asad emmie WSN: [id number] Orderi ng Physic heather: Kaiden Finch Dictat ed By: Rachael Samuel MD Dictat ed Date/T mahnaz: 4:25 pm Review ed By: Rachael Samuel MD Signed By: Rachael Samuel MD Signed Date/T mahnaz: 4:25 pm Transc ribed By: GUCCI Transc riptio jeni Date/T mahnaz: 4:20 pm Birads : Asad olea Class: Outpat ient [facility] (Outpt Imaging) [address] [facility], [place], [address], 11/21/2022 08:42:46 12/10/27 2202/13/2023 MRI, brain , w/o contr ast No observ ation record ed. [facility] ([facility] [address], [place], [address], 02/17/2023 11:37:26 07/01/19 25 06/29/2024 MRI, cervi lizett spine , w/o contr ast No observ ation record ed. [facility] (Medical Records) [address] [place], [address], 06/30/2024 18:10:49 Result Notes Documentation Provider Name and Address Organization Details Recorded Time Mammo, Screening, Digital, Bilateral : PROCEDURE: MM Digital Mammo Screening INDICATION: Screening for breast cancer. No known palpable abnormalities. COMPARISON: Multiple prior comparison studies, most recent on 11/16/2021 . TECHNIQUE: Full-field digital CC and MLO 3D tomosynthesis images of both breasts were acquired. Computer-aided detection (CAD) was utilized in the interpretation of this study. Best possible images were obtained per technologist's notes due to limited neck mobility. DENSITY: The breast tissue is heterogeneously dense, which may obscure masses. FINDINGS: No suspicious masses, suspicious microcalcifications, or areas of architectural distortion are seen in either breast to suggest malignancy. IMPRESSION: No mammographic evidence of malignancy. RECOMMENDATION: Annual mammographic screening BI-RADS: 1 (Negative) Lay letter mailed to patient WSN: [id number] Ordering Physician: Ebony Noble Dictated By: Rachael Acosta MD Dictated Date/Time: 11/20/22 4:25 pm Reviewed By: Rachael Acosta MD Signed By: Rachael Acosta MD Signed Date/Time: 11/20/22 4:25 pm Transcribed By: GUCCI [employer] Date/Time: 11/20/22 4:20 pm Birads: Patient Class: Outpatient Rosanna turpin [facility] 11/21/2022 08:42:46 Problems Name Problem SNOMED Code Status Onset Date Resolution Date Notes Provider Name and Address Organization Details Recorded Time Allergic rhinitis [id number] Active 2012 Kelsey turpin [facility] 8 08:41:05 Patient status finding [id number] Completed 201212/25/2015 Ewa turpin, [facility] 6 11:19:16 Screenin g for malignan t neoplasm of breast Completed 201209/21/2013 RECORDED 08/21/19 13 9:15AM BY PEDRO PABLO SELLERS ON/ADDEN DUM Shwetha Mederos null, [facility] 6 09:58:38 Bunion [id number] Completed 201109/21/2013 RECORDED 02/13/20 12 10:37AM BY IGLESIA MORA MA, PAPAATI ON/ADDEN DUM Shwetha Mederos null, [facility] 6 09:58:38 Burn [id number] Completed 201209/21/2013 IMPRESSI ON: HEALING WELL; RECORDED 02/23/20 13 9:43AM BY IGLESIA MORA MA, ANNOTATI ON/ADDEN DUM Shwetha Mederos null, [facility] 6 09:58:38 Screenin g for malignan t neoplasm of cervix Completed 201109/21/2013 RECORDED 02/13/20 12 10:37AM BY IGLESIA MORA MA, ANNOTATI ON/ADDEN DUM Shwetha Mederos null, [facility] 6 09:58:38 Adult health examinat ion Completed 201209/21/2013 IMPRESSI ON: PAP AND MAMMO UTD, PT IS DOING WELL, WILL ADD VITAMIN D; RECORDED 08/21/19 13 9:15AM BY PEDRO PABLO SELLERS ON/ADDEN DUM Shwetha Mederos null, [facility] 6 09:58:38 Pure hypercho lesterol emia 697513960 Completed 201201/12/2020 Ewa turpin, [facility] 0 09:24:32 Impacted cerumen 73263789 Completed 201209/21/2013 RECORDED 02/23/20 13 9:43AM BY IGLESIA MORA MA, ANNOTATI ON/ADDEN DUM Shwetha turpin [facility] 6 09:58:38 Lymphade nopathy 89846333 Completed 201201/06/2019 Ewa turpin [facility] 9 10:28:50 Administ ration of bacteria l and viral vaccine Completed 201009/21/2013 RECORDED 07/10/19 11 9:35AM BY STACIA GIORDANO, HISTORIC AL SUMMARY Shwetha turpin [facility] 6 09:58:38 Skin sensatio n disturba cte 32519399 Completed 201212/25/2015 STORY: CHRONIC LEFT ARM; RECORDED 02/23/20 13 11:00AM BY EVANGELINA BRYANT, OFFICE VISIT Ewa turpin [facility] 6 11:19:29 Pre-surg umm evaluati on Completed [...] MORA MA, ANNOTATI ON/ADDEN DUM Shwetha turpin [facility] 6 09:58:38 Acute stress disorder 80189267 Completed 201209/21/2013 IMPRESSI ON: AFTER SUDDEN LOSS OF FATHER. CLOSE FAMILY AND FRIENDS FOR SUPPORTS . CURRENTL Y DECLINES ANY FURTHER TX.; RECORDED 02/23/20 13 9:43AM BY IGLESIA MORA MA, ANNOTATI ON/ADDEN DUM Shwetha turpin [facility] 6 09:58:38 Eruption [id number] Completed 201209/21/2013 IMPRESSI ON: FACIAL, SET UP APPT WITH DERM; RECORDED 02/23/20 13 9:43AM BY IGLESIA MORA MA, ANNOTATI ON/ADDEN DUM Shwetha turpin [facility] 6 09:58:38 Influenz a vaccine needed [id number] 06 Completed 201109/21/2013 RECORDED 02/13/20 12 10:42AM BY IGLESIA MORA MA, OFFICE VISIT Shwetha turpin [facility] 6 09:58:38 Arthrode sis Completed 201109/21/2013 IMPRESSI ON: LIMITED ROM, UNABLE TO GEOVANNA ND SLEEP FLAT, WILL SET UP APPT WITH [facility], MAY NEED SHUNT; RECORDED 02/13/20 12 10:37AM BY IGLESIA MORA MA, PEDRO PABLO ON/ADDEN DUM Shwetha turpin [facility] 6 09:58:38 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 NO CLEAR SIGNS FO RIDDHI, LIKELY MORE ET BACK UP FROM FREQ CRYING. ADVISED RE USE OF MECLIZIN E, NASAL SALINE. MAY ADD NASAL CS IF LITTLE EFFECT. SHE WILL CALL ME IN 1 WEEK WITH UPDATE, SOONER PNR.; RECORDED 02/23/20 13 9:43AM BY IGLESIA MORA MA, OFFICE VISIT Stacia Giordano MA null, [facility] 8 09:54:27 Screenin g for malignan t neoplasm of breast Completed 201210/14/2013 RECORDED 08/21/19 13 9:15AM BY PEDRO PABLO SELLERS ON/ADDEN DUM Shwetha Mederosedy turpin,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 G95.0 - s/p decompress ion surgery- first noted in 2013- currently has left sided upper extremity loss of sensation- last MRI in 2018 showing syrinx extending to thoracic cord- MRI ordered [id number] EBONY NOBLE MD Main Office [address] [facility] [address] [place] [address] 06/24/2022 11:25:59 06/24/2022 11:55:31 Pain in right hand 6517844997 31852 M79.641 - pt has been having pain at her MCP joints, on exam 2nd and 3rd digits MCP were erythemato us and swollen- pt has been using her dominant hand a lot since easter 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- will check inflammato ry markers- will ensure pt is negative for RF- ordered x-ray of the right hand as well for further evaluation Migraine 79891161 G43.90 9 - chronic problem- intermitte ntly however worse during menstrual cycle and with weather changes- MRI of the brain done in 2018 was normal- there are no current red flags- pt given a trial of fioricet- can c/w ibuprofen as needed- pt advised to keep a headache diary [id number] Rahul Kessler MD Main Office [address] [facility] [address] [place] [address] 11/19/2022 15:04:34 11/19/2022 15:54:12 Benign paroxysmal positional vertigo 891578410 H81.10 Will rx meclizine to use as needed, caution re: drowsiness . Hydration, rest Dysfunctio n of bilateral eustachian tubes 9754598889 471290 H69.93 start flonase- one spray in each nare daily x 5-10 days [id number] EBONY NOBLE MD Main Office [address] [facility] [address] [place] [address] 02/10/2023 10:01:38 02/10/2023 10:38:37 Migraine without aura 56728774 G43.009 - chronic problem however recently worsened- [...] pt advised to keep a headache diary [id number] EBONY NOBLE MD Main Office [address] [facility] [address] [place] [address] 05/19/2023 09:32:07 05/19/2023 10:04:44 Adult health examination 242811357 Z00.00 Health Maintenanc e FemaleA) Patient was [...] Zoster: ordered -> pt reminded to have xzekHGB47: due at 28RGWS70: due at 34ZLT56:PC V15:COVID: 04/28/2020 , 05/19/2020 , 02/23/2021 D) Routine blood work orderedE) Updated patient's history RTC in one year for annual exam or sooner if any acute complaints Idiopathic scoliosis 203 634590 M41.20 - pt has a history of back problems at the C2-C3 level- pt had back surgery in 2004 to help with the fusion- due to history pt has had left sided upper extremity loss of sensation for several years- used to follow with neurosurge ry however patient was lost to follow-up- pt will be seen by [facility] however needs a repeat MRI before being seen which was ordered- last MRI was in 2022 -> no new changes 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 6477101 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 - s/p decompress ion surgery- first noted in 2013- currently has left sided upper extremity loss of sensation- last MRI was in 2022 -> no new changes Migraine without aura 56 208317 G43.009 - chronic problem however recently worsened- [...] 25mg which is providing some relief Osteoporosis 97489913 M8 1.0 - followed by rheum who gives patient alendronat e Fatigue 91847670 R53.83 Z00.00 Hyperlipidemia 35339672 E78.5 Z00.00 FASTING Serum jennifer min B12 below reference range 833457764 R79.89 [id number] EBONY NOBLE MD Main Office [address] [facility] [address] [facility] [address] 11/13/2023 09:52:55 11/13/2023 10:29:01 Idiopathic scoliosis 388933806 M41.20 - pt has a history of back problems at the C2-C3 level- pt had back surgery in 2004 to help with the fusion- due to history pt has had left sided upper extremity loss of sensation for several years- used to follow with neurosurge ry however patient was lost to follow-up- pt will be seen [facility] however needs a repeat MRI before being seen which was ordered- last MRI was in 2022 -> no new changes 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 5262222 G95.0 - s/p decompress ion surgery- first noted in 2013- currently has left sided upper extremity loss of sensation- last MRI was in 2022 -> no new changes Migraine without aura 56 016711 G43.009 - chronic problem, currently under good [...] taking magnesium nightly Needs infl uenza immunization 591661857 Z23 19 YEARS AND OLDER ONLY [id number] EBONY NOBLE MD Main Office [address] [place] [address] 05/20/2024 08:51:07 05/20/2024 09:19:37 Migraine without aura 44591124 G43.009 - chronic problem, currently under good [...] also taking magnesium nightly Idiopathic scoliosis 203 398953 M41.20 - pt has a history of back problems at the C2-C3 level- pt had back surgery in 2004 to help with the fusion- due to history pt has had left sided upper extremity loss of sensation for several years- used to follow with neurosurge ry however patient was lost to follow-up- pt will be seen [facility] however needs a repeat MRI before being seen which was ordered- last MRI brain was in 2022 -> no new changes 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 0370764 G95.0 - s/p decompress ion surgery- first noted in 2013- currently has left sided upper extremity loss of sensation- last MRI brain was in 2022 -> no new changes Adult heal th examination 628003352 Z00.00 Health Maintenanc e FemaleA) Patient was [...] C) Vaccines:I nfluenza: 01/10/2022 TdAP: 12/22/2014 Zoster: [id number] 0: orderedCOV ID: 04/28/2020 , 05/19/2020 , 02/23/2021 D) Routine blood work orderedE) Updated patient's history RTC in one year for annual exam or sooner if any acute complaints Osteoporosis 42041788 M8 1.0 - was on alendronat e, now switched to prolia- followed by rheum Allergic rhinitis 539857 04 J30.9 - currently good control Sleep apnea 43433438 G47 .30 - does not wear cpap machine Administra tion of pneumococcal vaccine 51725576 Z23 Fatigue 71828870 R53.83 Z00.00 Hyperlipidemia 85199114 E78.5 Z00.00 - ASCVD score of 0.9%- [...] veggies. Screening for malignant neoplasm of cervix 833347726 Z12.4 Pain in fi nger of right hand 4548498825 89492 M79.644 - second digit knuckle is swollen- has been present for 6 months- was given course of PO steroids by rheum however did not provide any improvemen t- pt reffered to hand surgery Health Concerns Section Related Observation LastModified by Organization Detai ls LastModified Time None Recorded Concern Status LastModified by Organization Details LastModified Time None Recorded Advance Directives Directive None Recorded Payers Insurance Date Sequence Insurance Name Policy Number Policy Grande Covered Member ID Grande Member ID Guarantor Name 05/31/2024 1 [facility] [id number] Ok Jung [id number] Ruth Jung Notes Date Note Type Note [...] today-Eating normally, drinking water. Jose Luis Munoz, [facility] [address] [facility] [address] [facility], [place], [address], [facility] 11/19/2022 16:13:54 02/10/2023 text/html HeadacheReported bypatient.Location:uni lateral; [...] results. Pt did see a neurology in [facility] this year to who believes headaches are more tension in nature and coming from neck stiffness. Pt has also tried baclofen with little relief. EBONY NOBLE MD [address] [address], [place], [address], [facility] 02/15/2023 17:54:25 05/19/2023 text/html Ruth Jung is [...] miles, with some resistance training Carlee turpin, [facility] 05/20/2023 19:03:27 11/13/2023 text/html HeadacheReported bypatient.Location:uni lateral; [...] results. Pt did see a neurology in [facility] this year to who believes headaches are more tension in nature and coming from neck stiffness. Pt has also tried baclofen with little relief. Ruth Jung is a 53 year old F who presented to the clinic for follow-up on her chronic conditions. Pt was recently seen in the ED for second degree davis on the left arm. EBONY NOBLE MD [address] [address], [place], [address], [facility] 11/13/2023 10:26:41 05/20/2024 text/html Ruth Jung is [...] with some resistance training EBONY NOBLE MD [address] [address], [place], [address], [facility] 05/20/2024 09:25:14 OBGyn Episode No OBEpisode recorded.
--- NOTE | 2024-09-16 07:23 | A.OFFVIS_ITS ---
Vital Signs 09/16/24 07:24 Height 5 ft 2 in Weight 146 lb 4 oz BMI 26.7 BP 122/82 Blood Pressure Location Rt brachial Position Sitting Pulse 74 Pulse Source Pulse Oximeter Pulse Oximetry (%) 99 Oxygen Delivery Method Room Air Intake Visit Reasons: 6 MONTH F/U Intake Note: Patient presents for follow up MRI done on 06/29/24. Patient states she has noticed left arm feels clammy . Accompanied by: Spouse Allergies No Known Allergies Allergy (Verified 09/16/24 07:29) Medication List - Last Reconciled 09/16/24 by Amy Monahan MD denosumab (Prolia) 60 mg subcut [id number] magnesium oxide 400 mg PO BEDTIME mometasone 50 mcg/actuation 2 sprays intranasal DAILY sumatriptan succinate take 1 tab at onset of headache; if no relief may repeat 1 tab after at least 2 hrs; max = 4 tabs/24 hr PO HPI Comments Details: 54 year old female is here for a follow up of Cervicogenic pain and migraines. she describes a new symptom of feeling clammy in her left upper arm for past 2 mths .No numbness or tingling Her migraines have improved since she started magnesium 400mg qhs No migraines for past 2 mths. Sumatriptan helps in 30 minutes. she also feels her left leg is weaker and drags . 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 Overall no gross change. history from last visit-H/o cervical fusion of c2 and c3, defect. She is R. hand dominant now unable to open bottles or doors with her hand. She went for PT / Dry needling the next morning right hand became swollen and has been like this for 2months. We had her xray the first carpometacarpal joint, with findings of mild degenerative changes, no fractures. She will follow up with her Compugraph Operator and PCP. ON LICENSE OF [facility] Medical History Osteoporosis Klippel-Feil deformity Left sided numbness Syringomyelia Scoliosis Cervical dystonia Ankylosis, left shoulder Surgical History History of cranial surgery History of bunionectomy Family History Father Hyperlipidemia Social History Alcohol intake: never Patient Tobacco Use Status: Never used Tobacco Review of Systems ENT Reports Normal hearing present Neuro Reports Normal hearing present Physical Exam Vital Signs: Last Vital Signs Pulse 74 09/16/24 07:24 BP 122/82 09/16/24 07:24 Pulse Ox 99 09/16/24 07:24 Oxygen Delivery Method Room Air 09/16/24 07:24 BMI result Body Mass Index 26.7 Const General: cooperative, comfortable and no acute distress Nutritional Appearance: average body habitus Orientation/consciousness: patient oriented x3 HEENT Head: Yes normal to inspection Face and sinus: Yes normal facial exam and Yes face symmetric Mouth: tongue normal Eyes Pupils: Equal, round and reactive pupils present Neck Neck: Yes full ROM (Limited ROM to the left, disc fusion c3-c4 - defect, had surgery.) and Yes supple Resp Effort & Inspection: normal respiratory effort and able to speak in complete sentences Neuro Other: Unable to tandem General: patient oriented x3 and moves all extremities Cranial nerves: Yes CN's II-XII intact bilaterally, Yes Facial sensation intact/muscles of mastication intact, Yes Equal, round and reactive pupils present, Yes Normal accommodation reflex present, Yes Nystagmus not present, Yes Normal facial strength present, Yes Midline tongue present, Yes Symmetric palate elevation present, Yes Normal hearing present, Yes Ability to bilaterally rotate head present (limited ROM to the Left.) and Yes Ability to bilaterally elevate shoulders present Gait exam (Neuro): Normal gait present Motor exam (neuro): 5/5 motor strength present throughout Coordination: [id number] test normal Results Reviewed Results Reviewed: MRI C spine - 06/2024 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 Overall no gross change. Assessment & Plan Assessment & Plan (1) Klippel-Feil deformity: Code(s): Q76.1 - Klippel-Feil syndrome Category: Medical (2) Syringomyelia: Code(s): G95.0 - Syringomyelia and syringobulbia Category: Medical (3) Scoliosis: Code(s): M41.9 - Scoliosis, unspecified Category: Medical (4) Left sided numbness: Code(s): R20.0 - Anesthesia of skin Category: Medical (5) Cervical dystonia: Code(s): G24.3 - Spasmodic torticollis Category: Medical (6) Cervicogenic migraine: Code(s): G43.809 - Other migraine, not intractable, without status migrainosus Category: Medical Plan: see details below Plan MRI C spine - reviewed no new changes I will order MRI brain to see any progression. Continue magnesium 400mg qhs and sumatriptan 50mg as needed Orders: Orders MR head/brain wo con Today Q76.1 - Klippel-Feil syndrome Coding Level of Care Code Est Pt Level 4 (72475) Complex EM visit Add On G2211 Diagnoses Klippel-Feil deformity Q76.1 Syringomyelia G95.0 Scoliosis M41.9 Left sided numbness R20.0 Cervical dystonia G24.3 Cervicogenic migraine G43.806
[2024-09-16 07:24] VITALS: BP 122/82; PULSE 74; O2SAT 99; BMI 26.7
== END 2024-09-16 08:07 | disposition home or self-care (01) ==
LOC: HO.HSMS 07:20
PROVIDERS: PCP Physician Assistant; Visit Provider Psychiatry & Neurology Neurology
DX: Q76.1 Klippel-Feil syndrome (principal); G95.0 Syringomyelia and syringobulbia; M41.9 Scoliosis, unspecified; R20.0 Anesthesia of skin; G24.3 Spasmodic torticollis; G43.809 Other migraine, not intractable, without status migrainosus
CPT/HCPCS: 99214; G2211

== ENCOUNTER 2024-10-04 16:26 | Outpatient (REF) | payer OTHER, SELFPAY ==
--- NOTE | ~2024-10-04 | MR_ITS ---
EXAMINATION: MR BRAIN WITHOUT CONTRAST CLINICAL INFORMATION: Klippel-Feil syndrome COMPARISON: No prior MRI brain. Correlated to MRI cervical spine dated June 29, 2024. TECHNIQUE: MRI of the brain was obtained using routine sequences without contrast. FINDINGS: Paramagnetic field distortion secondary to metallic hardware at the suboccipital upper neck. No restricted diffusion. No acute intracranial hemorrhage. No hydrocephalus, mass effect, midline shift, or herniation. Kirkpatrick-white matter differentiation is normal. Bilateral, a few scattered, nonspecific white matter hyperintense T2 FLAIR signal involving centrum semiovale and salinas radiata. Sellar/suprasellar region demonstrated no gross signal abnormality or masses. There is flattening of the clivus and deformity of the brainstem/mel. There is a CSF equivalent signal abnormality within the upper cervical spinal cord extending to the medulla oblongata junction best identified on the MRI cervical spine. Flow-void signal within the main cerebral vessels is normal. Hyperintense T2 FLAIR signal, right mastoid. There is fusion C2-C3. MR/MR head/brain wo con IMPRESSION: No acute brain abnormality. Basilar invagination. Hydrosyringomyelia/syrinx, upper cervical spinal cord. Klippel-Feill syndrome.. Electronically signed by: Gerardo Lopez MD 10/05/2024 07:07 AM EDT
--- OUTSIDE RECORDS SUMMARY | 2024-10-04 16:31 | XMS_ITS | Patient Health Record ---
Author Organization [employer] [facility] Address [address] [place] [address] Care Team Providers Care Speech Professor Name Role Phone BHUMI HURD, LISANDRO Primary Care Provider Christina Saeed Unavailable [phone] Allergies No Known Allergies Results Component Value Reference Range Notes Urinalysis Reviewed date:06/23/2024 12:29:38 PM Interpretation: Performing Lab: Notes/Report: PH 5.0 PROTEIN Neg GLUCOSE Neg BLOOD Moderate Reason For Referral No Information Medications Medication SIG (Take, Route, Frequency, Duration) Notes Start Date End Date Status Norethindrone Acetate 5 MG 1 tablet Orally DAILY FOR 10 DAYS IF NO MENSES Q 3 MONTHS; Duration: 90 days 06/23/2024 Active SUMAtriptan Succinate 50 MG Oral; Duration: 30 Days Active Prolia 60 MG/ML as [...] W/U Status Risk Notes Problem Age-related osteoporosis (636136598) Age-related osteoporosis without current pathological fracture (M81.0) Active confirmed Problem Urinary incontinence (835607525) Unspecified urinary incontinence (R32) Active confirmed Problem Postcoital bleeding (97601629) Postcoital and contact bleeding (N93.0) Active confirmed Problem Unspecified menopausal and perimenopausal disorder (N95.9) Active confirmed Problem SI - Stress incontinence (50988160) Stress incontinence (female) (male) (N39.3) Active confirmed Problem 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) Active confirmed Major Problem Gynecological examination normal (325094914468746) Routine gynecological examination (V72.31) Active confirmed Major Vital Signs Temperature 97.5 degrees Fahrenheit 06/23/2024 Blood pressure diastolic 80 mm Hg 06/23/2024 Height 62.5 in 06/23/2024 Blood pressure systolic 124 mm Hg 06/23/2024 Weight 141 lbs 06/23/2024 BMI 25.38 kg/m2 06/23/2024 Encounters Encounter Location Date Provider Diagnosis [address] [place] [address] 06/23/2024 Christina Maldonado Encounter for gynecological examination [...] Name:Christina Burciaga hong, 06/24/2025 09:20:00 AM, [address], [address], [place], [address], Insurance Providers Payer Name Payer Address Payer Phone Subscriber Number Group Number Insured Name Patient Relationship to Insured Coverage Start Date Coverage End Date [facility] [address] [place] [address] [id number] JERED SINGLETARY Self - patient is the [...]
--- OUTSIDE RECORDS SUMMARY | 2024-10-04 16:31 | XMS_ITS | Patient Health Record ---
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 Plan Of Treatment Pending Test Test Name Order Date X ray : Foot, right 3V 09/25/2020 Insurance Providers Payer Name Payer Address Payer Phone Subscriber Number Group Number Insured Name Patient Relationship to Insured Coverage Start Date Coverage End Date [facility] [address] [place] [address] [phone] [id number] Ford Jung Jr Spouse - patient is the spouse of the insured Medical (General) History Medical History History ICD Code Broken bones Headaches Numbness Joint implants/screws Surgical History Surgery Date(Month/Year) spine surgery 2004 bunionectomy 2011
--- OUTSIDE RECORDS SUMMARY | 2024-10-04 16:31 | XMS_ITS | Data Portability ---
Author Organization [facility], Main Office Address [address] [facility] [address] [place] [address] Care Team Providers Care Micro Photographer Name Role Phone CELINE FLORES Neurosurgeon PARK PEÑALOZA Nail Cutter EBONY NOBLE Primary Care Provider JONI KABA Elect[employer]lag Welding Machine Operator [phone] NELI MCQUEEN Referring Provider [phone] Assessment No assessment recorded. Plan of Treatment Reminders Order Date Submit Date Provider Last Modified By Organization Details Last Modified Time Details Appointments URGENT 2024 11:30A M EBONY NOBLE MD Not available Not available Not available Lab lipid panel, serum 2024 025 [facility]ON[facility]Z [facility], [address] [place], [address], 05/21/2024 06:07:51 BMP, serum or plasma 2024 025 GONZALEZ [facility], [address] [place], [address], 05/21/2024 06:07:50 CBC w/ auto diff 2024 025 GONZALEZ [facility], [address], [place], [address], 05/21/2024 06:07:49 TSH, ultra-sen sitive, serum 2024 025 GONZALEZ [facility], [address] [place], [address], 05/21/2024 06:07:51 lipid panel, serum 2023 024 GONZALEZ [facility], [address], [place], [address], 05/21/2023 06:08:10 vitamin B12, serum 2023 024 GONZALEZ [facility], [address], [place], [address], 05/21/2023 06:08:11 BMP, serum or plasma 2023 024 GONZALEZ [facility], [address], [place], [address], 05/21/2023 06:08:10 CBC w/ auto diff 2023 024 GONZALEZ [facility], [address], [place], [address], 05/21/2023 06:08:09 TSH, ultra-sen sitive, serum 2023 024 GONZALEZ [facility], [address], [place], [address], 05/21/2023 06:08:11 Referral hand surgeon referral - 2nd digit 2024 025 [email or web address] [facility], [address], [address], [place], [address], 05/24/2024 09:54:45 Procedures None recorded. Surgeries None recorded. Imaging MRI, brain, w/o contrast - pt having different headache than usual and worse at night 2022 023 [facility] ([facility]), [address], [place], [address], 02/14/2023 11:07:19 Medication Orders meclizine 12.5 mg tablet 2022 023 [email or web address] [id number], [address] [place] [address], [place], [place], [id number], 02/10/2023 10:10:30 Patient TargetsNo targets recorded. Patient Instructions Encounter Date Encounter Id Patient Instructions Last Modified By Organization Details Last Modified Time 11/19/2022 [id number] eustachian tube problems: care instructions jthabet Not available 11/19/2022 15:49:46 benign paroxysma l positional vertigo (bppv): care instructions [email or web address] Not available 11/19/2022 15:49:46 To call or retur n for worsening or concerns jthabet Not available 11/19/2022 15:49:53 02/10/2023 [id number] medical record request* Not available 02/17/2023 13:02:51 05/19/2023 [id number] osteoporosis: care instructions Not available 05/19/2023 09:59:45 medical record request* Not available 05/28/2023 13:20:00 11/13/2023 [id number] medical record request* Not available 11/20/2023 10:23:01 05/20/2024 [id number] osteoporosis: care instructions Not available 05/20/2024 09:16:20 [...] x10e3 /uL 3.4-10 .8 Not Available [facility] ([facility]) [address] [facility], [place], [address], 05/21/2023 06:08:09 05/20/19 24 05/21/2023 CBC WITH DIFFE RENTI AL/PL ATELE T RBC 4.68 x10e6 /uL 3.77-5 .28 Not Available [facility] ([facility]) [address] [place], [address], 05/21/2023 06:08:09 05/20/19 24 05/21/2023 CBC WITH DIFFE RENTI AL/PL ATELE T hemoglobin 14.0 g/dL 11.1-1 5.9 Not Available [facility] ([facility]) [address] [place], [address], 05/21/2023 06:08:09 05/20/19 24 05/21/2023 CBC WITH DIFFE RENTI AL/PL ATELE T hematocrit 42.5 % 34.0-4 6.6 Not Available [facility] ([facility]) [address] [place], [address], 05/21/2023 06:08:09 05/20/19 24 05/21/2023 CBC WITH DIFFE RENTI AL/PL ATELE T MCV 91 fL 79-97 Not Available [facility] ([facility]) [address] [place], [address], 05/21/2023 06:08:09 05/20/19 24 05/21/2023 CBC WITH DIFFE RENTI AL/PL ATELE T MCH 29.9 pg 26.6-3 3.0 Not Available [facility] ([facility]) [address] [place], [address], 05/21/2023 06:08:09 05/20/19 24 05/21/2023 CBC WITH DIFFE RENTI AL/PL ATELE T MCHC 32.9 g/dL 31.5-3 5.7 Not Available [facility] ([facility]) [address] [place], [address], 05/21/2023 06:08:09 05/20/19 24 05/21/2023 CBC WITH DIFFE RENTI AL/PL ATELE T RDW 12.1 % 11.7-1 5.4 Not Available [facility] ([facility]) [address] [facility], [place], [address], 05/21/2023 06:08:09 05/20/19 24 05/21/2023 CBC WITH DIFFE RENTI AL/PL ATELE T platelets 264 x10e3 /uL 150-45 0 Not Available [facility] ([facility]) [address] [facility], [place], [address], 05/21/2023 06:08:09 05/20/19 24 05/21/2023 CBC WITH DIFFE RENTI AL/PL ATELE T neutrophils 56 % not estab. Not Available [facility] ([facility]) [address] [facility], [place], [address], 05/21/2023 06:08:09 05/20/19 24 05/21/2023 CBC WITH DIFFE RENTI AL/PL ATELE T lymphs 32 % not estab. Not Available [facility] ([facility]) [address] [facility], [place], [address], 05/21/2023 06:08:09 05/20/19 24 05/21/2023 CBC WITH DIFFE RENTI AL/PL ATELE T monocytes 9 % not estab. Not Available [facility] ([facility]) [address] [facility], [place], [address], 05/21/2023 06:08:09 05/20/19 24 05/21/2023 CBC WITH DIFFE RENTI AL/PL ATELE T eos 2 % not estab. Not Available [facility] ([facility]) [address] [facility], [place], [address], 05/21/2023 06:08:09 05/20/19 24 05/21/2023 CBC WITH DIFFE RENTI AL/PL ATELE T basos 1 % not estab. Not Available [facility] ([facility]) [address] [place], [address], 05/21/2023 06:08:09 05/20/19 24 05/21/2023 CBC WITH DIFFE RENTI AL/PL ATELE T immature cells ENERGY ADVISOR Not Available [facility] ([facility]) [address] [place], [address], 05/21/2023 06:08:09 05/20/19 24 05/21/2023 CBC WITH DIFFE RENTI AL/PL ATELE T neutrophils (absolute) 3.4 x10e3 /uL 1.4-7. 0 Not Available [facility] ([facility]) [address] [facility], [place], [address], 05/21/2023 06:08:09 05/20/19 24 05/21/2023 CBC WITH DIFFE RENTI AL/PL ATELE T lymphs (absolute) 2.0 x10e3 /uL 0.7-3. 1 Not Available [facility] ([facility]) [address] [place], [address], 05/21/2023 06:08:09 05/20/19 24 05/21/2023 CBC WITH DIFFE RENTI AL/PL ATELE T monocytes(ab solute) 0.5 x10e3 /uL 0.1-0. 9 Not Available [facility] ([facility]) [address] [place], [address], 05/21/2023 06:08:09 05/20/19 24 05/21/2023 CBC WITH DIFFE RENTI AL/PL ATELE T eos (absolute) 0.1 x10e3 /uL 0.0-0. 4 Not Available [facility] ([facility]) [address] [place], [address], 05/21/2023 06:08:09 05/20/19 24 05/21/2023 CBC WITH DIFFE RENTI AL/PL ATELE T baso (absolute) 0.1 x10e3 /uL 0.0-0. 2 Not Available [facility] ([facility]) [address] [facility], [place], [address], 05/21/2023 06:08:09 05/20/19 24 05/21/2023 CBC WITH DIFFE RENTI AL/PL ATELE T immature granulocytes 0 % not estab. Not Available [facility] ([facility]) [address] [facility], [place], [address], 05/21/2023 06:08:09 05/20/19 24 05/21/2023 CBC WITH DIFFE RENTI AL/PL ATELE T immature grans (abs) 0.0 x10e3 /uL 0.0-0. 1 Not Available [facility] ([facility]) [address] [facility], [place], [address], 05/21/2023 06:08:09 05/20/19 24 05/21/2023 CBC WITH DIFFE RENTI AL/PL ATELE T NRBC ENERGY ADVISOR Not Available [facility] ([facility]) [address] [place], [address], 05/21/2023 06:08:09 05/20/19 24 05/21/2023 CBC WITH DIFFE RENTI AL/PL ATELE T hematology comments: ENERGY ADVISOR Not Available [facility] ([facility]) [address] [place], [address], 05/21/2023 06:08:09 05/20/19 24 05/21/2023 BASIC METAB OLIC PANEL (8) glucose 80 mg/dL 70-99 Not Available [facility] ([facility]) [address] [place], [address], 05/21/2023 06:08:10 05/20/19 24 05/21/2023 BASIC METAB OLIC PANEL (8) BUN 13 mg/dL 6-24 Not Available [facility] ([facility]) [address] [facility] [place], [address], 05/21/2023 06:08:10 05/20/19 24 05/21/2023 BASIC METAB OLIC PANEL (8) creatinine 0.80 mg/dL 0.57-1 .00 Not Available [facility] ([facility]) [address] [facility] [place], [address], 05/21/2023 06:08:10 05/20/19 24 05/21/2023 BASIC METAB OLIC PANEL (8) eGFR 89 mL/mi n/1.7 3 >59 Not Available [facility] ([facility]) [address] [facility] [place], [address], 05/21/2023 06:08:10 05/20/19 24 05/21/2023 BASIC METAB OLIC PANEL (8) BUN/creatini ne ratio 16 9-23 Not Available [facility] ([facility]) [address] [facility] [place], [address], 05/21/2023 06:08:10 05/20/19 24 05/21/2023 BASIC METAB OLIC PANEL (8) sodium 138 mmol/ L 134-14 4 Not Available [facility] ([facility]) [address] [facility] [place], [address], 05/21/2023 06:08:10 05/20/19 24 05/21/2023 BASIC METAB OLIC PANEL (8) potassium 4.6 mmol/ L 3.5-5. 2 Not Available [facility] ([facility]) [address] [facility] [place], [address], 05/21/2023 06:08:10 05/20/19 24 05/21/2023 BASIC METAB OLIC PANEL (8) chloride 100 mmol/ L 96-106 Not Available [facility] ([facility]) [address] [facility] [place], [address], 05/21/2023 06:08:10 05/20/19 24 05/21/2023 BASIC METAB OLIC PANEL (8) carbon dioxide, total 22 mmol/ L 20-29 Not Available [facility] ([facility]) [address] [place], [address], 05/21/2023 06:08:10 05/20/19 24 05/21/2023 BASIC METAB OLIC PANEL (8) calcium 9.4 mg/dL 8.7-10 .2 Not Available [facility] ([facility]) [address] [place], [address], 05/21/2023 06:08:10 05/20/19 24 05/21/2023 LIPID PANEL cholesterol, total 189 mg/dL 100-19 9 Not Available [facility] ([facility]) [address] [place], [address], 05/21/2023 06:08:10 05/20/19 24 05/21/2023 LIPID PANEL triglyceride s 79 mg/dL 0-149 Not Available [facility] ([facility]) [address] [place], [address], 05/21/2023 06:08:10 05/20/19 24 05/21/2023 LIPID PANEL HDL cholesterol 73 mg/dL >39 Not Available [facility] ([facility]) [address] [place], [address], 05/21/2023 06:08:10 05/20/19 24 05/21/2023 LIPID PANEL VLDL cholesterol lizett 14 mg/dL 5-40 Not Available [facility] ([facility]) [address] [place], [address], 05/21/2023 06:08:10 05/20/19 24 05/21/2023 LIPID PANEL LDL chol calc ([facility]) 102 mg/dL 0-99 above high normal Not Available [facility] ([facility]) [address] [place], [address], 05/21/2023 06:08:10 05/20/19 24 05/21/2023 LIPID PANEL comment: ENERGY ADVISOR Not Available [facility] ([facility]) [address] [facility] [place], [address], 05/21/2023 06:08:10 05/20/19 24 05/21/2023 TSH RFX ON ABNOR MAL TO FREE T4 TSH 1.630 uIU/m L 0.450- 4.500 Not Available [facility] ([facility]) [address] [facility] [place], [address], 05/21/2023 06:08:11 05/20/19 24 05/21/2023 VITAM IN B12 vitamin B12 1153 pg/mL 232-12 45 Not Available [facility] ([facility]) [address] [facility] [place], [address], 05/21/2023 06:08:11 05/21/19 25 05/20/2024 CBC WITH DIFFE RENTI AL/PL ATELE T WBC 6.3 x10e3 /uL 3.4-10 .8 normal Not Available [facility] ([facility]) [address] [place], [address], 05/21/2024 06:07:49 05/21/19 25 05/20/2024 CBC WITH DIFFE RENTI AL/PL ATELE T RBC 4.52 x10e6 /uL 3.77-5 .28 normal Not Available [facility] ([facility]) [address] [facility] [place], [address], 05/21/2024 06:07:49 05/21/19 25 05/20/2024 CBC WITH DIFFE RENTI AL/PL ATELE T hemoglobin 14.1 g/dL 11.1-1 5.9 normal Not Available [facility] ([facility]) [address] [facility] [place], [address], 05/21/2024 06:07:49 05/21/19 25 05/20/2024 CBC WITH DIFFE RENTI AL/PL ATELE T hematocrit 41.3 % 34.0-4 6.6 normal Not Available [facility] ([facility]) [address] [place], [address], 05/21/2024 06:07:49 05/21/1905/20/2024 CBC WITH DIFFE RENTI AL/PL ATELE T MCV 91 fL 79-97 normal Not Available [facility] ([facility]) [address] [place], [address], 05/21/2024 06:07:49 05/21/1905/20/2024 CBC WITH DIFFE RENTI AL/PL ATELE T MCH 31.2 pg 26.6-3 3.0 normal Not Available [facility] ([facility]) [address] [place], [address], 05/21/2024 06:07:49 05/21/19 25 05/20/2024 CBC WITH DIFFE RENTI AL/PL ATELE T MCHC 34.1 g/dL 31.5-3 5.7 normal Not Available [facility] ([facility]) [address] [place], [address], 05/21/2024 06:07:49 05/21/1905/20/2024 CBC WITH DIFFE RENTI AL/PL ATELE T RDW 11.7 % 11.7-1 5.4 Not Available [facility] ([facility]) [address] [place], [address], 05/21/2024 06:07:49 05/21/1905/20/2024 CBC WITH DIFFE RENTI AL/PL ATELE T platelets 243 x10e3 /uL 150-45 0 normal Not Available [facility] ([facility]) [address] [place], [address], 05/21/2024 06:07:49 05/21/19 25 05/20/2024 CBC WITH DIFFE RENTI AL/PL ATELE T neutrophils 57 % not estab. normal Not Available [facility] ([facility]) [address] [facility], [place], [address], 05/21/2024 06:07:49 05/21/19 25 05/20/2024 CBC WITH DIFFE RENTI AL/PL ATELE T lymphs 33 % not estab. normal Not Available [facility] ([facility]) [address] [facility], [place], [address], 05/21/2024 06:07:49 05/21/19 25 05/20/2024 CBC WITH DIFFE RENTI AL/PL ATELE T monocytes 8 % not estab. normal Not Available [facility] ([facility]) [address] [facility], [place], [address], 05/21/2024 06:07:49 05/21/19 25 05/20/2024 CBC WITH DIFFE RENTI AL/PL ATELE T eos 1 % not estab. normal Not Available [facility] ([facility]) [address] [facility], [place], [address], 05/21/2024 06:07:49 05/21/19 25 05/20/2024 CBC WITH DIFFE RENTI AL/PL ATELE T basos 1 % not estab. normal Not Available [facility] ([facility]) [address] [facility], [place], [address], 05/21/2024 06:07:49 05/21/19 25 05/20/2024 CBC WITH DIFFE RENTI AL/PL ATELE T immature cells ENERGY ADVISOR Not Available [facility] ([facility]) [address] [place], [address], 05/21/2024 06:07:49 05/21/19 25 05/20/2024 CBC WITH DIFFE RENTI AL/PL ATELE T neutrophils (absolute) 3.6 x10e3 /uL 1.4-7. 0 normal Not Available [facility] ([facility]) [address] [facility], [place], [address], 05/21/2024 06:07:49 05/21/19 25 05/20/2024 CBC WITH DIFFE RENTI AL/PL ATELE T lymphs (absolute) 2.1 x10e3 /uL 0.7-3. 1 normal Not Available [facility] ([facility]) [address] [facility], [place], [address], 05/21/2024 06:07:49 05/21/19 25 05/20/2024 CBC WITH DIFFE RENTI AL/PL ATELE T monocytes(ab solute) 0.5 x10e3 /uL 0.1-0. 9 normal Not Available [facility] ([facility]) [address] [facility], [place], [address], 05/21/2024 06:07:49 05/21/19 25 05/20/2024 CBC WITH DIFFE RENTI AL/PL ATELE T eos (absolute) 0.1 x10e3 /uL 0.0-0. 4 normal Not Available [facility] ([facility]) [address] [facility], [place], [address], 05/21/2024 06:07:49 05/21/19 25 05/20/2024 CBC WITH DIFFE RENTI AL/PL ATELE T baso (absolute) 0.1 x10e3 /uL 0.0-0. 2 normal Not Available [facility] ([facility]) [address] [place], [address], 05/21/2024 06:07:49 05/21/1905/20/2024 CBC WITH DIFFE RENTI AL/PL ATELE T immature granulocytes 0 % not estab. Not Available [facility] ([facility]) [address] [place], [address], 05/21/2024 06:07:49 05/21/19 25 05/20/2024 CBC WITH DIFFE RENTI AL/PL ATELE T immature grans (abs) 0.0 x10e3 /uL 0.0-0. 1 Not Available [facility] ([facility]) [address] [facility], [place], [address], 05/21/2024 06:07:49 05/21/19 25 05/20/2024 CBC WITH DIFFE RENTI AL/PL ATELE T NRBC ENERGY ADVISOR Not Available [facility] ([facility]) [address] [facility], [place], [address], 05/21/2024 06:07:49 05/21/1905/20/2024 CBC WITH DIFFE RENTI AL/PL ATELE T hematology comments: ENERGY ADVISOR Not Available [facility] ([facility]) [address] [facility], [place], [address], 05/21/2024 06:07:49 05/21/19 25 05/21/2024 BASIC METAB OLIC PANEL (8) glucose 58 mg/dL 70-99 below low normal Not Available [facility] ([facility]) [address] [place], [address], 05/21/2024 06:07:50 05/21/19 25 05/21/2024 BASIC METAB OLIC PANEL (8) BUN 11 mg/dL 6-24 normal Not Available [facility] ([facility]) [address] [place], [address], 05/21/2024 06:07:50 05/21/19 25 05/21/2024 BASIC METAB OLIC PANEL (8) creatinine 0.76 mg/dL 0.57-1 .00 normal Not Available [facility] ([facility]) [address] [place], [address], 05/21/2024 06:07:50 05/21/19 25 05/21/2024 BASIC METAB OLIC PANEL (8) eGFR 94 mL/mi n/1.7 3 >59 normal Not Available [facility] ([facility]) [address] [facility], [place], [address], 05/21/2024 06:07:50 05/21/19 25 05/21/2024 BASIC METAB OLIC PANEL (8) BUN/creatini ne ratio 14 9-23 normal Not Available [facility] ([facility]) [address] [facility], [place], [address], 05/21/2024 06:07:50 05/21/19 25 05/21/2024 BASIC METAB OLIC PANEL (8) sodium 139 mmol/ L 134-14 4 normal Not Available [facility] ([facility]) [address] [facility], [place], [address], 05/21/2024 06:07:50 05/21/19 25 05/21/2024 BASIC METAB OLIC PANEL (8) potassium 3.9 mmol/ L 3.5-5. 2 normal Not Available [facility] ([facility]) [address] [facility], [place], [address], 05/21/2024 06:07:50 05/21/19 25 05/21/2024 BASIC METAB OLIC PANEL (8) chloride 99 mmol/ L 96-106 normal Not Available [facility] ([facility]) [address] [facility] [place], [address], 05/21/2024 06:07:50 05/21/19 25 05/21/2024 BASIC METAB OLIC PANEL (8) carbon dioxide, total 21 mmol/ L 20-29 normal Not Available [facility] ([facility]) [address] [facility] [place], [address], 05/21/2024 06:07:50 05/21/19 25 05/21/2024 BASIC METAB OLIC PANEL (8) calcium 8.8 mg/dL 8.7-10 .2 normal Not Available [facility] ([facility]) [address] [place], [address], 05/21/2024 06:07:50 05/21/19 25 05/21/2024 LIPID PANEL cholesterol, total 199 mg/dL 100-19 9 normal Not Available [facility] ([facility]) [address] [place], [address], 05/21/2024 06:07:50 05/21/19 25 05/21/2024 LIPID PANEL triglyceride s 53 mg/dL 0-149 normal Not Available [facility] ([facility]) [address] [place], [address], 05/21/2024 06:07:50 05/21/19 25 05/21/2024 LIPID PANEL HDL cholesterol 71 mg/dL >39 normal Not Available [facility] ([facility]) [address] [place], [address], 05/21/2024 06:07:50 05/21/19 25 05/21/2024 LIPID PANEL VLDL cholesterol lizett 10 mg/dL 5-40 Not Available [facility] ([facility]) [address] [place], [address], 05/21/2024 06:07:50 05/21/19 25 05/21/2024 LIPID PANEL LDL chol calc ([facility]) 118 mg/dL 0-99 above high normal Not Available [facility] ([facility]) [address] [place], [address], 05/21/2024 06:07:50 05/21/19 25 05/21/2024 LIPID PANEL LDL calc comment: ENERGY ADVISOR Not Available [facility] ([facility]) [address] [place], [address], 05/21/2024 06:07:50 05/21/19 25 05/21/2024 TSH RFX ON ABNOR MAL TO FREE T4 TSH 0.958 uIU/m L 0.450- 4.500 normal Not Available [facility] ([facility]) [address] [place], [address], 05/21/2024 06:07:51 11/21/1911/20/2022 MAMMO , scree kenneth, [...] Lay letter mailed to asad emmie WSN: [id number] Orderi ng Physic heather: Kaiden Finch Dictat ed By: Rachael Samuel MD Dictat ed Date/T mahnaz: 4:25 pm Review ed By: Rachael Samuel MD Signed By: Rachael Samuel MD Signed Date/T mahnaz: 4:25 pm Transc ribed By: GUCCI Transc riptio jeni Date/T mahnaz: 4:20 pm Birads : Asad olea Class: Outpat ient [facility] (Outpt Imaging) [address] [facility], [place], [address], 11/21/2022 08:42:46 12/10/27 2202/13/2023 MRI, brain , w/o contr ast No observ ation record ed. [facility] ([facility]) [address], [place], [address], 02/17/2023 11:37:26 07/01/19 25 06/29/2024 MRI, cervi lizett spine , w/o contr ast No observ ation record ed. [facility] (Medical Records) [address] [place], [address], 06/30/2024 18:10:49 Result Notes Documentation Provider Name [...] (Negative) Lay letter mailed to patient WSN: [id number] Ordering Physician: Ebony Noble Dictated By: Rachael Acosta MD Dictated Date/Time: 11/20/22 4:25 pm Reviewed By: Rachael Acosta MD Signed By: Rachael Acosta MD Signed Date/Time: 11/20/22 4:25 pm Transcribed By: GUCCI Campus Safety Officer Date/Time: 11/20/22 4:20 pm Birads: Patient Class: Outpatient Rosanna turpin [facility] 11/21/2022 08:42:46 Problems Name Problem SNOMED Code Status Onset Date Resolution Date Notes Provider Name and Address Organization Details Recorded Time Backache 090388487 Active fusion in C2-C3-> no operatio ns EBONY NOBLE MD [address] [facility] [address], [place], [address] , [facility] 3 09:51:39 Migraine [id number] Active REILLY Sellers [facility] 4 10:05:34 Administ ration of bacteria l and viral vaccine Completed 201009/21/2013 RECORDED 07/10/19 11 9:35AM BY STACIA GIORDANO, LARRYIC AL SUMMARY Shwetha turpin [facility] 6 09:58:38 Administ ration of bacteria l and viral vaccine Completed 201010/14/2013 RECORDED 07/10/19 11 9:35AM BY STACIA GIORDANO, LARRYIC AL SUMMARY Shwetha turpin [facility] 6 09:58:38 Administ ration of bacteria l and viral vaccine Completed 201010/15/2013 RECORDED 07/10/19 11 9:35AM BY STACIA GIORDANO, LARRYIC AL SUMMARY Shwetha turpin [facility] 6 09:58:38 Bunion [id number] Completed 201109/21/2013 RECORDED 02/13/20 12 10:37AM BY IGLESIA MORA MA, ANNOTATI ON/ADDEN DUM Shwethaedy turpin [facility] 6 09:58:38 Screenin g for malignan t neoplasm of cervix Completed 201109/21/2013 RECORDED 02/13/20 12 10:37AM BY IGLESIA MORA MA, ANNOTATI ON/ADDEN DUM Shwetha Gatito turpin [facility] 6 09:58:38 Pre-surg umm evaluati on Completed 201109/21/2013 IMPRESSI [...] MORA MA, ANNOTATI ON/ADDEN DUM Shwetha turpin, [facility] 6 09:58:38 Influenz a vaccine needed [id number] Completed 201109/21/2013 RECORDED 02/13/20 12 10:42AM BY IGLESIA MORA MA, OFFICE VISIT Shwetha turpin [facility] 6 09:58:38 Arthrode sis Completed 201109/21/2013 IMPRESSI ON: LIMITED ROM, UNABLE TO GEOVANNA ND SLEEP FLAT, WILL SET UP APPT WITH [facility], MAY NEED SHUNT; RECORDED 02/13/20 12 10:37AM BY IGLESIA MORA MA, ANNOTATI ON/ADDEN DUM Shwetha turpin, [facility] [facility] 6 09:58:38 Bunion [id number] Completed 201110/14/2013 RECORDED 02/13/20 12 10:37AM BY IGLESIA MORA MA, ANNOTATI ON/ADDEN DUM Shwetha turpin, [facility] 6 09:58:38 Screenin g for malignan t neoplasm of cervix Completed 201110/14/2013 RECORDED 02/13/20 12 10:37AM BY IGLESIA MORA MA, ANNOTATI ON/ADDEN DUM Shwethaedy Mederos null, [facility] 6 09:58:38 Pre-surg umm evaluati on [...] MORA MA, ANNOTATI ON/ADDEN DUM Shwetha turpin [facility] 6 09:58:38 Influenz a vaccine needed [id number] 06 Completed 201110/14/2013 RECORDED 02/13/20 12 10:42AM BY IGLESIA MORA MA, OFFICE VISIT Shwetha turpin [facility] 6 09:58:38 Arthrode sis Completed 201110/14/2013 IMPRESSI ON: LIMITED ROM, UNABLE TO GEOVANNA ND SLEEP FLAT, WILL SET UP APPT WITH [facility], MAY NEED SHUNT; RECORDED 02/13/20 12 10:37AM BY IGLESIA MORA MA, ANNOTATI ON/ADDEN DUM Shwetha turpin [facility] 6 09:58:38 Bunion [id number] Completed 201110/15/2013 RECORDED 02/13/20 12 10:37AM BY IGLESIA MORA MA, ANNOTATI ON/ADDEN DUM Shwetha turpin, [facility] 6 09:58:38 Screenin g for malignan t neoplasm of cervix Completed 201110/15/2013 RECORDED 02/13/20 12 10:37AM BY IGLESIA MORA MA, ANNOTATI ON/ADDEN DUM Shwetha turpin, [facility] 6 09:58:38 Pre-surg umm evaluati on [...] MA, PEDRO PABLO ON/ADDEN DUM Shwetha turpin, [facility] 6 09:58:38 Influenz a vaccine needed [id number] 06 Completed 201110/15/2013 RECORDED 02/13/20 12 10:42AM BY IGLESIA MORA MA, OFFICE VISIT Shwetha turpin, [facility] 6 09:58:38 Arthrode sis Completed 201110/15/2013 IMPRESSI ON: LIMITED ROM, UNABLE TO GEOVANNA ND SLEEP FLAT, WILL SET UP APPT WITH [facility], MAY NEED SHUNT; RECORDED 02/13/20 12 10:37AM BY IGLESIA MORA MA, PEDRO PABLO ON/ADDEN DUM Shwetha turpin, [facility] 6 09:58:38 Screenin g for malignan t neoplasm of breast Completed 201209/21/2013 RECORDED 08/21/19 13 9:15AM BY PEDRO PABLO SELLERS ON/ADDEN DUM Shwetha turpin, [facility] 6 09:58:38 Adult health examinat ion Completed 201209/21/2013 IMPRESSI ON: PAP AND MAMMO UTD, PT IS DOING WELL, WILL ADD VITAMIN D; RECORDED 08/21/19 13 9:15AM BY PEDRO PABLO SELLERS ON/ADDEN DUM Shwetha turpin, [facility] 6 09:58:38 Screenin g for malignan t neoplasm of breast Completed 201210/14/2013 RECORDED 08/21/19 13 9:15AM BY PEDRO PABLO SELLERS ON/ADDEN DUM Shwetha Mederos null, [facility] 6 09:58:38 Adult health examinat ion Completed 201210/14/2013 IMPRESSI ON: PAP AND MAMMO UTD, PT IS DOING WELL, WILL ADD VITAMIN D; RECORDED 08/21/19 13 9:15AM BY PEDRO PABLO SELLERS ON/ADDEN DUM Shwetha turpin [facility] 6 09:58:38 Screenin g for malignan t neoplasm of breast Completed 201210/15/2013 RECORDED 08/21/19 13 9:15AM BY PEDRO PABLO SELLERS ON/ADDEN DUM Shwethaedy turpin, [facility] 6 09:58:38 Adult health examinat ion Completed 201210/15/2013 IMPRESSI ON: PAP AND MAMMO UTD, PT IS DOING WELL, WILL ADD VITAMIN D; RECORDED 08/21/19 13 9:15AM BY PEDRO PABLO SELLERS ON/ADDEN DUM Shwetha turpin [facility] 6 09:58:38 Allergic rhinitis 23300976 Active 2012 Kelsey turpin [facility] 8 08:41:05 Patient status finding [id number] Completed 201212/25/2015 Ewa turpin [facility] 6 11:19:16 Burn [id number] Completed 201209/21/2013 IMPRESSI ON: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 patient's history RTC in one year for annual exam or sooner if any acute complaints Idiopathic scoliosis 203 126314 M41.20 - pt has a history of back problems at the C2-C3 level- pt had back surgery in 2004 to help with the fusion- due to history pt has had left sided upper extremity loss of sensation for several years- used to follow with neurosurge ry however patient was lost to follow-up- pt will be seen by [facility] lent[facility] however needs a repeat MRI before being seen which was ordered- last MRI was in 2022 -> no new changes 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 - s/p decompress ion surgery- first noted in 2013- currently has left sided upper extremity loss of sensation- last MRI was in 2022 -> no new changes Migraine without aura 56 854058 G43.009 - chronic problem however recently worsened- [...] 25mg which is providing some relief Osteoporosis 07117983 M8 1.0 - followed by rheum who gives patient alendronat e Fatigue 75860327 R53.83 Z00.00 Hyperlipidemia 20805719 E78.5 Z00.00 FASTING Serum jennifer min B12 below reference range 559085794 R79.89 [id number] EBONY NOBLE MD Main Office [address] [facility] [address] [facility] [place] [address] 11/13/2023 09:52:55 11/13/2023 10:29:01 Idiopathic scoliosis 662162978 M41.20 - pt has a history of back problems at the C2-C3 level- pt had back surgery in 2004 to help with the fusion- due to history pt has had left sided upper extremity loss of sensation for several years- used to follow with neurosurge ry however patient was lost to follow-up- pt will be seen [facility] however needs a repeat MRI before being seen which was ordered- last MRI was in 2022 -> no new changes 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 5848452 G95.0 - s/p decompress ion surgery- first noted in 2013- currently has left sided upper extremity loss of sensation- last MRI was in 2022 -> no new changes Migraine without aura 56 465633 G43.009 - chronic problem, currently under good [...] taking magnesium nightly Needs infl uenza immunization 566558373 Z23 19 YEARS AND OLDER ONLY [id number] EBONY NOBLE MD Main Office [address] [place] [address] 05/20/2024 08:51:07 05/20/2024 09:19:37 Migraine without aura 13048795 G43.009 - chronic problem, currently under good [...] also taking magnesium nightly Idiopathic scoliosis 203 732850 M41.20 - pt has a history of back problems at the C2-C3 level- pt had back surgery in 2004 to help with the fusion- due to history pt has had left sided upper extremity loss of sensation for several years- used to follow with neurosurge ry however patient was lost to follow-up- pt will be seen by [facility] however needs a repeat MRI before being seen which was ordered- last MRI brain was in 2022 -> no new changes 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 0896820 G95.0 - s/p decompress ion surgery- first noted in 2013- currently has left sided upper extremity loss of sensation- last MRI brain was in 2022 -> no new changes Adult heal th examination 034126032 Z00.00 Health Maintenanc e FemaleA) Patient was [...] C) Vaccines:I nfluenza: 01/10/2022 TdAP: 12/22/2014 Zoster: [id number] 0: orderedCOV ID: 04/28/2020 , 05/19/2020 , 02/23/2021 D) Routine blood work orderedE) Updated patient's history RTC in one year for annual exam or sooner if any acute complaints Osteoporosis 38012903 M8 1.0 - was on alendronat e, now switched to prolia- followed by rheum Allergic rhinitis 364388 04 J30.9 - currently good control Sleep apnea 12419276 G47 .30 - does not wear cpap machine Administra tion of pneumococcal vaccine 12664994 Z23 Fatigue 22624454 R53.83 Z00.00 Hyperlipidemia 13330753 E78.5 Z00.00 - ASCVD score of 0.9%- [...] veggies. Screening for malignant neoplasm of cervix 520316867 Z12.4 Pain in fi nger of right hand 8863935278 80234 M79.644 - second digit knuckle is swollen- [...] Member ID Grande Member ID Guarantor Name 10/04/2024 1 [facility] ([facility]) [id number] Ok Jung [id number] Ruth Jung OBGyn Episode No OBEpisode recorded.
== END 2024-10-04 16:27 | disposition home or self-care (01) ==
LOC: HO.MRI 16:26
PROVIDERS: PCP Student in an Organized Health Care Education/Training Program; Visit Provider Psychiatry & Neurology Neurology
DX: Q76.1 Klippel-Feil syndrome (principal)
CPT/HCPCS: 70551

== ENCOUNTER → 2024-10-04 16:26 | Outpatient (BNV) | payer OTHER, SELFPAY | PROVIDERS: PCP Student in an Organized Health Care Education/Training Program; Visit Provider Radiology Diagnostic Radiology | DX: Q76.1 Klippel-Feil syndrome (principal) | CPT/HCPCS: 70551 ==

== ENCOUNTER 2025-01-20 09:17 | Outpatient (AMB) | payer OTHER, SELFPAY ==
--- NOTE | 2025-01-20 09:44 | MHC.OFFVIS ---
Vital Signs 01/20/25 09:46 Height 5 ft 2 in Weight 147 lb 8 oz BMI 27.0 BP 112/76 Blood Pressure Location Lt brachial Position Sitting Pulse 77 Pulse Source Pulse Oximeter Pulse Oximetry (%) 99 Oxygen Delivery Method Room Air Intake Visit Reasons: f/u swollen hand (COMF.) Intake Note: Patient presents follow up dystonia. Allergies No Known Allergies Allergy (Verified 01/20/25 09:49) HPI Comments Details: 54 year old female is here for a follow up of Cervicogenic pain and migraines. She has poor sleep hygiene, with snoring, gasping for air, and multiple night time arousals as she is not able to get comfortable despite using her special cervical pillow. She describes a new symptom of clamminess of l. upper arm, shoulder, axilla and breast, with trapezius soreness, due to the scoliosis c2,c3. No numbness or tingling. Her migraines have improved since she started magnesium 400mg qhs, now 1x every other week and debilitating pain base of neck r.side moves up to the top. with nausea she denies vomiting, vision gets blurry and has dizziness with vertigo. She has photo/phonophobia, smells trigger her symptoms, will have auras and tinnitus, she says Sumatriptan 50mg improves symptoms in 30 minutes. She feels her left leg is weaker and foot drags, and lacks sensation, managed by the arthritis center. Memory, mood and diet is stable. Denies abnormal sleep behaviors, parasomnias, thrashing, flailing, nocturia, a/v hallucinations. PMH H/o cervical fusion of c2 and c3, defect. Klipel - Feil- Deformity. She is R. hand dominant now unable to open bottles or doors with her hand. She went for PT / Dry needling the next morning right hand became swollen and has been like this for 2months. We had her xray the first carpometacarpal joint, with findings of mild degenerative changes, no fractures. F/U with the [facility] treatment center - Dr. Santana [facility] Medical History Osteoporosis Klippel-Feil deformity Left sided numbness Syringomyelia Scoliosis Cervical dystonia Ankylosis, left shoulder Surgical History History of cranial surgery History of bunionectomy Family History Father Hyperlipidemia Social History Alcohol intake: never Patient Tobacco Use Status: Never used Tobacco Review of Systems Const Reports daytime sleepiness, Reports difficulty sleeping and Reports excessive sweating ENT Reports Normal hearing present Neuro Reports Normal hearing present Endo Reports excessive sweating Physical Exam Vital Signs: Last Vital Signs Pulse 77 01/20/25 09:46 BP 112/76 01/20/25 09:46 Pulse Ox 99 01/20/25 09:46 Oxygen Delivery Method Room Air 01/20/25 09:46 BMI result Body Mass Index 27.0 Const General: cooperative and no acute distress Nutritional Appearance: average body habitus Orientation/consciousness: patient oriented x3 HEENT Head: Yes normal to inspection Face and sinus: Yes normal facial exam and Yes face symmetric Mouth: tongue normal Eyes Pupils: Equal, round and reactive pupils present Neck Neck: Yes full ROM (Limited ROM to the left, disc fusion c3-c4 - defect, had surgery.) and Yes supple Resp Effort & Inspection: normal respiratory effort and able to speak in complete sentences Neuro Other: Unable to tandem General: patient oriented x3 and moves all extremities Cranial nerves: Yes CN's II-XII intact bilaterally, Yes Facial sensation intact/muscles of mastication intact, Yes Equal, round and reactive pupils present, Yes Normal accommodation reflex present, Yes Nystagmus not present, Yes Normal facial strength present, Yes Midline tongue present, Yes Symmetric palate elevation present and Yes Normal hearing present Gait exam (Neuro): Normal gait present Motor exam (neuro): Abnormal motor strength present and Abnormal muscle tone present Coordination: [id number] test normal Psych Appearance: grossly normal Mental Status: mental status grossly normal Affect: normal affect Thought process: Normal thought process present Results Reviewed Results Reviewed: Reviewed mri with pt. 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 Overall no gross change. torticollis/ head tilt - Assessment & Plan Assessment & Plan (1) Excessive daytime sleepiness: Code(s): G47.19 - Other hypersomnia Category: Medical (2) Hx of migraines: Code(s): Z86.69 - Personal history of other diseases of the nervous system and sense organs Category: Medical (3) Loud snoring: Code(s): R06.83 - Snoring Category: Medical Plan psg r/o pam MRI reviwed with pt. headaches continue sumatritptan and alpha lipoic acid. PT with [facility] blister of hands, f/u with pcp. Labs will request from pcp. Orders: Orders RT PSG in-lab sleep study 01/20/25 G47.19 - Other hypersomnia, R06.83 - Snoring Medications: New alpha lipoic acid take one capsule daily at lunch time 100 mg PO DAILY 90 caps 1RF migraines 3 months MDD 100mg Z86.69 - Personal history of other diseases of the nervous system and sense organs Patient Instructions: Preventative migraine therapy CGRP antagonists: The G-pants Sumatriptan, Rizatriptan, Ellatriptan at the acute onset of migraines. Triptans 1 tablets with onset of migraine. If migraine does not abort, may repeat one more tablet 2 hours later as needed. Do not exceed 4 tablets in a 24 hour period. Chronic Migraine Prevention: may use daily as prescribed. Amytriptyline, Ibuprofen OTC 400-600mg PO PRN, May put on your migraine cap, and lie down for 15-30min in a dark, quiet room. May use peppermint oil on the temples as needed. Drink at least 50% of body weight in water. Sleep Hygiene provided: set a scheduled bedtime and wake time to help regulate the circadian rhythm and balance the release of pituitary hormones. Sleep in a dark room, temperatures below 68 degrees, and no devices n bed. Limit caffeinated products 6 hours prior to bed, and limit fluids 2-4 hours prior to bed. Gentle night yoga, diffusing essential oils, and playing soft music can be relaxing. Coding Level of Care Code New Pt Level 4 (65278) Diagnoses Excessive daytime sleepiness G47.19 Hx of migraines Z86.69 Loud snoring R06.83
[2025-01-20 09:46] VITALS: BP 112/76; PULSE 77; O2SAT 99; BMI 27.0
--- OUTSIDE RECORDS SUMMARY | 2025-01-20 10:33 | XMS_ITS | Data Portability ---
Author Organization [facility], Main Office Address [address] [place] [address] Care Team Providers Care Marketing Engineer Name Role Phone CARLEE FLORES Neurosurgeon PARK PEÑALOZA Water Maintenance Supervisor EBONY NOBLE Primary Care Provider JONI KABA Mushroom Packer [phone] NELI MCQUEEN Referring Provider Assessment No assessment recorded. Plan of Treatment Reminders Order Date Submit Date Provider Last Modified By Organization Details Last Modified Time Details Appointments URGENT 2024 01:30P Erik NOBLE MD Not available Not available Not available FOLLOW UP 2025 10:45A Erik NOBLE MD Not available Not available Not available Lab TSH, ultra- sensit anabel, serum 2024 025 [facility] (Centralized Electronic Ordering - All Locations), Patient Can Go To The Location Of Their Choice, 10/08/2024 06:07:50 estrad iol, serum 2024 025 [facility] ([facility]ized [facility] Ordering - All Locations), Patient Can Go To The Location Of Their Choice, 10/08/2024 06:07:49 lh + FSH, serum 2024 025 [facility] ([facility]ized [facility] Ordering - All Locations), Patient Can Go To The Location Of Their Choice, 10/08/2024 06:07:47 testos terone , free + total, serum 2024 025 [facility] ([facility]ized [facility] Ordering - All Locations), Patient Can Go To The Location Of Their Choice, [id number] 10/08/2024 06:07:47 HbA1c (hemog lobin A1c), blood 2024 025 [facility] ([facility] Ordering - All Locations), Patient Can Go To The Location Of Their Choice, [id number] 10/08/2024 06:07:48 chromo granin A, serum 2024 025 [facility] ([facility]ized [facility] Ordering - All Locations), Patient Can Go To The Location Of Their Choice, [id number] 10/08/2024 06:07:50 CMP, serum or plasma 2024 025 [facility] ([facility]ized [facility] Ordering - All Locations), Patient Can Go To The Location Of Their Choice, [id number] 10/08/2024 06:07:45 amylas e + lipase , serum 2024 025 [facility] ([facility] Ordering - All Locations), Patient Can Go To The Location Of Their Choice, [id number] 10/08/2024 06:07:46 lipid panel, serum 2024 025 [facility], [address], [place], [address], 05/21/2024 06:07:51 BMP, serum or plasma 2024 025 [facility], [address], [place], [address], 05/21/2024 06:07:50 CBC w/ auto diff 2024 025 [facility], [address], [place], [address], 05/21/2024 06:07:49 TSH, ultra- sensit anabel, serum 2024 025 [facility], [address], [place], [address], 05/21/2024 06:07:51 lipid panel, serum 2023 024 [facility], [address], [place], [address], 05/21/2023 06:08:10 vitami n B12, serum 2023 024 [facility], [address], [place], [address], 05/21/2023 06:08:11 BMP, serum or plasma 2023 024 [facility], [address], [place], [address], 05/21/2023 06:08:10 CBC w/ auto diff 2023 024 [facility], [address], [place], [address], 05/21/2023 06:08:09 TSH, ultra- sensit anabel, serum 2023 024 [facility], [address], [place], [address], 05/21/2023 06:08:11 Referral vascul ar surgeo n referr al - pt left foot will get blue only, no pain but it cold 2024 025 [facility], [address], [address], [place], [address], 11/16/2024 16:10:45 hand surgeo n referr al - 2nd digit 2024 025 [email or web address], [address], [address], [place], [address], 05/24/2024 09:54:45 Procedures None record ed. Surgeries None record ed. Imaging XR, ribs, unilat eral, w/ PA chest 2024 025 [email or web address] Not available 10/21/2024 10:05:32 Medication Orders Drysol 20 % jannet brito barbraa on 2024 025 [id number], [address] [place] [address], [place], [place], [id number], 11/16/2024 14:08:21 Patient TargetsNo targets recorded. Patient Instructions Encounter Date Encounter Id Patient Instructions Last Modified By Organization Details Last Modified Time 05/19/2023 [id number] osteoporosis: care instructions Not available 05/19/2023 09:59:45 medical record request* Not available 05/28/2023 13:20:00 11/13/2023 [id number] medical record request* Not available 11/20/2023 10:23:01 05/20/2024 [id number] osteoporosis: care instructions Not available 05/20/2024 09:16:20 allergies: care instructions Not available 05/20/2024 09:16:21 medical record request* Not available 05/20/2024 11:40:11 sleep apnea: car e instructions Not available 05/20/2024 09:16:21 10/05/2024 [id number] abnormal sweating: care instructions Not available 10/05/2024 12:07:59 abdominal pain: care instructions Not available 10/05/2024 12:07:59 Reason for Referral Hand Surgeon Referral for Pa in in finger of right hand 2nd digit Referring Physician: Ebony Noble 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, Encounter Date: 11/16/2024 Results Created Date Observation Date Name Description Value Unit Range Abnormal Flag Note LastModifiedBy Organization Detail LastModifiedTime 05/20/19 24 05/21/2023 CBC WITH DIFFE RENTI AL/PL ATELE T WBC 6.2 x10e3 /uL 3.4-10 .8 Not Available [facility] ([facility]) [address], [place], [address], 05/21/2023 06:08:09 05/20/19 24 05/21/2023 CBC WITH DIFFE RENTI AL/PL ATELE T RBC 4.68 x10e6 /uL 3.77-5 .28 Not Available [facility] ([facility]) [address] [facility] [address], [place], [address], 05/21/2023 06:08:09 05/20/19 24 05/21/2023 CBC WITH DIFFE RENTI AL/PL ATELE T hemoglobin 14.0 g/dL 11.1-1 5.9 Not Available [facility] ([facility]) [address] [facility] [address], [place], [address], 05/21/2023 06:08:09 05/20/19 24 05/21/2023 CBC WITH DIFFE RENTI AL/PL ATELE T hematocrit 42.5 % 34.0-4 6.6 Not Available [facility] ([facility]) [address] [facility] [address], [place], [address], 05/21/2023 06:08:09 05/20/1905/21/2023 CBC WITH DIFFE RENTI AL/PL ATELE T MCV 91 fL 79-97 Not Available [facility] ([facility]) [address] [place], [address], 05/21/2023 06:08:09 05/20/19 24 05/21/2023 CBC WITH DIFFE RENTI AL/PL ATELE T MCH 29.9 pg 26.6-3 3.0 Not Available [facility] ([facility]) [address] [place], [address], 05/21/2023 06:08:09 05/20/19 24 05/21/2023 CBC WITH DIFFE RENTI AL/PL ATELE T MCHC 32.9 g/dL 31.5-3 5.7 Not Available [facility] ([facility]) [address], [place], [address], 05/21/2023 06:08:09 05/20/19 24 05/21/2023 CBC WITH DIFFE RENTI AL/PL ATELE T RDW 12.1 % 11.7-1 5.4 Not Available [facility] ([facility]) [address] [facility] [address], [place], [address], 05/21/2023 06:08:09 05/20/19 24 05/21/2023 CBC WITH DIFFE RENTI AL/PL ATELE T platelets 264 x10e3 /uL 150-45 0 Not Available [facility] ([facility]) [address] [facility] [address], [place], [address], 05/21/2023 06:08:09 05/20/19 24 05/21/2023 CBC WITH DIFFE RENTI AL/PL ATELE T neutrophils 56 % not estab. Not Available [facility] ([facility]) [address] [facility] [address], [place], [address], 05/21/2023 06:08:09 05/20/19 24 05/21/2023 CBC WITH DIFFE RENTI AL/PL ATELE T lymphs 32 % not estab. Not Available [facility] ([facility]) [address] [facility] [address], [place], [address], 05/21/2023 06:08:09 05/20/19 24 05/21/2023 CBC WITH DIFFE RENTI AL/PL ATELE T monocytes 9 % not estab. Not Available [facility] ([facility]) [address] [facility] [address], [place], [address], 05/21/2023 06:08:09 05/20/19 24 05/21/2023 CBC WITH DIFFE RENTI AL/PL ATELE T eos 2 % not estab. Not Available [facility] ([facility]) [address] [facility] [address], [place], [address], 05/21/2023 06:08:09 05/20/19 24 05/21/2023 CBC WITH DIFFE RENTI AL/PL ATELE T basos 1 % not estab. Not Available [facility] ([facility]) [address] [place], [address], 05/21/2023 06:08:09 05/20/19 24 05/21/2023 CBC WITH DIFFE RENTI AL/PL ATELE T immature cells SUPERVISOR ROUGH END Not Available [facility] ([facility]) [address] [place], [address], 05/21/2023 06:08:09 05/20/19 24 05/21/2023 CBC WITH DIFFE RENTI AL/PL ATELE T neutrophils (absolute) 3.4 x10e3 /uL 1.4-7. 0 Not Available [facility] ([facility]) [address] [place], [address], 05/21/2023 06:08:09 05/20/19 24 05/21/2023 CBC WITH DIFFE RENTI AL/PL ATELE T lymphs (absolute) 2.0 x10e3 /uL 0.7-3. 1 Not Available [facility] ([facility]) [address] [place], [address], 05/21/2023 06:08:09 05/20/19 24 05/21/2023 CBC WITH DIFFE RENTI AL/PL ATELE T monocytes(ab solute) 0.5 x10e3 /uL 0.1-0. 9 Not Available [facility] ([facility]) [address] [place], [address], 05/21/2023 06:08:09 05/20/19 24 05/21/2023 CBC WITH DIFFE RENTI AL/PL ATELE T eos (absolute) 0.1 x10e3 /uL 0.0-0. 4 Not Available [facility] ([facility]) [address] [place], [address], 05/21/2023 06:08:09 05/20/19 24 05/21/2023 CBC WITH DIFFE RENTI AL/PL ATELE T baso (absolute) 0.1 x10e3 /uL 0.0-0. 2 Not Available [facility] ([facility]) [address] [facility] [address], [place], [address], 05/21/2023 06:08:09 05/20/19 24 05/21/2023 CBC WITH DIFFE RENTI AL/PL ATELE T immature granulocytes 0 % not estab. Not Available [facility] ([facility]) [address] [facility] [address], [place], [address], 05/21/2023 06:08:09 05/20/19 24 05/21/2023 CBC WITH DIFFE RENTI AL/PL ATELE T immature grans (abs) 0.0 x10e3 /uL 0.0-0. 1 Not Available [facility] ([facility]) [address] [facility] [address], [place], [address], 05/21/2023 06:08:09 05/20/19 24 05/21/2023 CBC WITH DIFFE RENTI AL/PL ATELE T NRBC SUPERVISOR ROUGH END Not Available [facility] ([facility]) [address] [facility] [address], [place], [address], 05/21/2023 06:08:09 05/20/19 24 05/21/2023 CBC WITH DIFFE RENTI AL/PL ATELE T hematology comments: SUPERVISOR ROUGH END Not Available [facility] ([facility]) [address] [facility] [address], [place], [address], 05/21/2023 06:08:09 05/20/19 24 05/21/2023 BASIC METAB OLIC PANEL (8) glucose 80 mg/dL 70-99 Not Available [facility] ([facility]) [address] [facility] [address], [place], [address], 05/21/2023 06:08:10 05/20/19 24 05/21/2023 BASIC METAB OLIC PANEL (8) BUN 13 mg/dL 6-24 Not Available [facility] ([facility]) [address] [facility] [place], [address], 05/21/2023 06:08:10 05/20/19 24 05/21/2023 BASIC METAB OLIC PANEL (8) creatinine 0.80 mg/dL 0.57-1 .00 Not Available [facility] ([facility]) [address] [facility] [place], [address], 05/21/2023 06:08:10 05/20/19 24 05/21/2023 BASIC METAB OLIC PANEL (8) eGFR 89 mL/mi n/1.7 3 >59 Not Available [facility] ([facility]) [address] [facility] [address], [place], [address], 05/21/2023 06:08:10 05/20/19 24 05/21/2023 BASIC METAB OLIC PANEL (8) BUN/creatini ne ratio 16 9-23 Not Available [facility] ([facility]) [address] [place], [address], 05/21/2023 06:08:10 05/20/19 24 05/21/2023 BASIC METAB OLIC PANEL (8) sodium 138 mmol/ L 134-14 4 Not Available [facility] ([facility]) [address] [place], [address], 05/21/2023 06:08:10 05/20/19 24 05/21/2023 BASIC METAB OLIC PANEL (8) potassium 4.6 mmol/ L 3.5-5. 2 Not Available [facility] ([facility]) [address] [place], [address], 05/21/2023 06:08:10 05/20/19 24 05/21/2023 BASIC METAB OLIC PANEL (8) chloride 100 mmol/ L 96-106 Not Available [facility] ([facility]) [address] [place], [address], 05/21/2023 06:08:10 05/20/19 24 05/21/2023 BASIC METAB OLIC PANEL (8) carbon dioxide, total 22 mmol/ L 20-29 Not Available [facility] ([facility]) [address] [facility] [place], [address], 05/21/2023 06:08:10 05/20/19 24 05/21/2023 BASIC METAB OLIC PANEL (8) calcium 9.4 mg/dL 8.7-10 .2 Not Available [facility] ([facility]) [address] [place], [address], 05/21/2023 06:08:10 05/20/19 24 05/21/2023 LIPID PANEL cholesterol, total 189 mg/dL 100-19 9 Not Available [facility] ([facility]) [address] [place], [address], 05/21/2023 06:08:10 05/20/19 24 05/21/2023 LIPID PANEL triglyceride s 79 mg/dL 0-149 Not Available [facility] ([facility]) [address] [place], [address], 05/21/2023 06:08:10 05/20/19 24 05/21/2023 LIPID PANEL HDL cholesterol 73 mg/dL >39 Not Available [facility] ([facility]) [address] [place], [address], 05/21/2023 06:08:10 05/20/19 24 05/21/2023 LIPID PANEL VLDL cholesterol lizett 14 mg/dL 5-40 Not Available [facility] ([facility]) [address] [place], [address], 05/21/2023 06:08:10 05/20/19 24 05/21/2023 LIPID PANEL LDL chol calc ([facility]) 102 mg/dL 0-99 above high normal Not Available [facility] ([facility]) [address] [place], [address], 05/21/2023 06:08:10 05/20/19 24 05/21/2023 LIPID PANEL comment: SUPERVISOR ROUGH END Not Available [facility] ([facility]) [address] [place], [address], 05/21/2023 06:08:10 05/20/19 24 05/21/2023 TSH RFX ON ABNOR MAL TO FREE T4 TSH 1.630 uIU/m L 0.450- 4.500 Not Available [facility] ([facility]) [address] [place], [address], 05/21/2023 06:08:11 05/20/19 24 05/21/2023 VITAM IN B12 vitamin B12 1153 pg/mL 232-12 45 Not Available [facility] ([facility]) [address] [place], [address], 05/21/2023 06:08:11 05/21/19 25 05/20/2024 CBC WITH DIFFE RENTI AL/PL ATELE T WBC 6.3 x10e3 /uL 3.4-10 .8 normal Not Available [facility] ([facility]) [address] [place], [address], 05/21/2024 06:07:49 05/21/19 25 05/20/2024 CBC WITH DIFFE RENTI AL/PL ATELE T RBC 4.52 x10e6 /uL 3.77-5 .28 normal Not Available [facility] ([facility]) [address] [place], [address], 05/21/2024 06:07:49 05/21/19 25 05/20/2024 CBC WITH DIFFE RENTI AL/PL ATELE T hemoglobin 14.1 g/dL 11.1-1 5.9 normal Not Available [facility] ([facility]) [address] [place], [address], 05/21/2024 06:07:49 05/21/19 25 05/20/2024 CBC WITH DIFFE RENTI AL/PL ATELE T hematocrit 41.3 % 34.0-4 6.6 normal Not Available [facility] ([facility]) [address] [place], [address], 05/21/2024 06:07:49 05/21/1905/20/2024 CBC WITH DIFFE RENTI AL/PL ATELE T MCV 91 fL 79-97 normal Not Available [facility] ([facility]) [address] [place], [address], 05/21/2024 06:07:49 05/21/19 25 05/20/2024 CBC WITH DIFFE RENTI AL/PL ATELE T MCH 31.2 pg 26.6-3 3.0 normal Not Available [facility] ([facility]) [address] [place], [address], 05/21/2024 06:07:49 05/21/1905/20/2024 CBC WITH DIFFE RENTI AL/PL ATELE T MCHC 34.1 g/dL 31.5-3 5.7 normal Not Available [facility] ([facility]) [address] [place], [address], 05/21/2024 06:07:49 05/21/1905/20/2024 CBC WITH DIFFE RENTI AL/PL ATELE T RDW 11.7 % 11.7-1 5.4 Not Available [facility] ([facility]) [address] [place], [address], 05/21/2024 06:07:49 05/21/19 25 05/20/2024 CBC WITH DIFFE RENTI AL/PL ATELE T platelets 243 x10e3 /uL 150-45 0 normal Not Available [facility] ([facility]) [address] [place], [address], 05/21/2024 06:07:49 05/21/19 25 05/20/2024 CBC WITH DIFFE RENTI AL/PL ATELE T neutrophils 57 % not estab. normal Not Available [facility] ([facility]) [address] [facility] [address], [place], [address], 05/21/2024 06:07:49 05/21/19 25 05/20/2024 CBC WITH DIFFE RENTI AL/PL ATELE T lymphs 33 % not estab. normal Not Available [facility] ([facility]) [address] [facility] [address], [place], [address], 05/21/2024 06:07:49 05/21/19 25 05/20/2024 CBC WITH DIFFE RENTI AL/PL ATELE T monocytes 8 % not estab. normal Not Available [facility] ([facility]) [address] [facility] [address], [place], [address], 05/21/2024 06:07:49 05/21/19 25 05/20/2024 CBC WITH DIFFE RENTI AL/PL ATELE T eos 1 % not estab. normal Not Available [facility] ([facility]) [address] [facility] [address], [place], [address], 05/21/2024 06:07:49 05/21/19 25 05/20/2024 CBC WITH DIFFE RENTI AL/PL ATELE T basos 1 % not estab. normal Not Available [facility] ([facility]) [address] [facility] [address], [place], [address], 05/21/2024 06:07:49 05/21/19 25 05/20/2024 CBC WITH DIFFE RENTI AL/PL ATELE T immature cells SUPERVISOR ROUGH END Not Available [facility] ([facility]) [address] [facility] [address], [place], [address], 05/21/2024 06:07:49 05/21/19 25 05/20/2024 CBC WITH DIFFE RENTI AL/PL ATELE T neutrophils (absolute) 3.6 x10e3 /uL 1.4-7. 0 normal Not Available [facility] ([facility]) [address] [place], [address], 05/21/2024 06:07:49 05/21/19 25 05/20/2024 CBC WITH DIFFE RENTI AL/PL ATELE T lymphs (absolute) 2.1 x10e3 /uL 0.7-3. 1 normal Not Available [facility] ([facility]) [address] [place], [address], 05/21/2024 06:07:49 05/21/19 25 05/20/2024 CBC WITH DIFFE RENTI AL/PL ATELE T monocytes(ab solute) 0.5 x10e3 /uL 0.1-0. 9 normal Not Available [facility] ([facility]) [address] [place], [address], 05/21/2024 06:07:49 05/21/19 25 05/20/2024 CBC WITH DIFFE RENTI AL/PL ATELE T eos (absolute) 0.1 x10e3 /uL 0.0-0. 4 normal Not Available [facility] ([facility]) [address] [place], [address], 05/21/2024 06:07:49 05/21/19 25 05/20/2024 CBC WITH DIFFE RENTI AL/PL ATELE T baso (absolute) 0.1 x10e3 /uL 0.0-0. 2 normal Not Available [facility] ([facility]) [address] [place], [address], 05/21/2024 06:07:49 05/21/19 25 05/20/2024 CBC WITH DIFFE RENTI AL/PL ATELE T immature granulocytes 0 % not estab. Not Available [facility] ([facility]) [address] [place], [address], 05/21/2024 06:07:49 05/21/19 25 05/20/2024 CBC WITH DIFFE RENTI AL/PL ATELE T immature grans (abs) 0.0 x10e3 /uL 0.0-0. 1 Not Available [facility] ([facility]) [address] [facility] [address], [place], [address], 05/21/2024 06:07:49 05/21/19 25 05/20/2024 CBC WITH DIFFE RENTI AL/PL ATELE T NRBC SUPERVISOR ROUGH END Not Available [facility] ([facility]) [address] [facility] [address], [place], [address], 05/21/2024 06:07:49 05/21/19 25 05/20/2024 CBC WITH DIFFE RENTI AL/PL ATELE T hematology comments: SUPERVISOR ROUGH END Not Available [facility] ([facility]) [address] [facility] [address], [place], [address], 05/21/2024 06:07:49 05/21/19 25 05/21/2024 BASIC METAB OLIC PANEL (8) glucose 58 mg/dL 70-99 below low normal Not Available [facility] ([facility]) [address] [place], [address], 05/21/2024 06:07:50 05/21/19 25 05/21/2024 BASIC METAB OLIC PANEL (8) BUN 11 mg/dL 6-24 normal Not Available [facility] ([facility]) [address] [place], [address], 05/21/2024 06:07:50 05/21/19 25 05/21/2024 BASIC METAB OLIC PANEL (8) creatinine 0.76 mg/dL 0.57-1 .00 normal Not Available [facility] ([facility]) [address] [place], [address], 05/21/2024 06:07:50 05/21/19 25 05/21/2024 BASIC METAB OLIC PANEL (8) eGFR 94 mL/mi n/1.7 3 >59 normal Not Available [facility] ([facility]) [address] [place], [address], 05/21/2024 06:07:50 05/21/19 25 05/21/2024 BASIC METAB OLIC PANEL (8) BUN/creatini ne ratio 14 9-23 normal Not Available [facility] ([facility]) [address] [place], [address], 05/21/2024 06:07:50 05/21/19 25 05/21/2024 BASIC METAB OLIC PANEL (8) sodium 139 mmol/ L 134-14 4 normal Not Available [facility] ([facility]) [address] [place], [address], 05/21/2024 06:07:50 05/21/19 25 05/21/2024 BASIC METAB OLIC PANEL (8) potassium 3.9 mmol/ L 3.5-5. 2 normal Not Available [facility] ([facility]) [address] [place], [address], 05/21/2024 06:07:50 05/21/19 25 05/21/2024 BASIC METAB OLIC PANEL (8) chloride 99 mmol/ L 96-106 normal Not Available [facility] ([facility]) [address] [place], [address], 05/21/2024 06:07:50 05/21/19 25 05/21/2024 BASIC METAB OLIC PANEL (8) carbon dioxide, total 21 mmol/ L 20-29 normal Not Available [facility] ([facility]) [address] [place], [address], 05/21/2024 06:07:50 05/21/19 25 05/21/2024 BASIC METAB OLIC PANEL (8) calcium 8.8 mg/dL 8.7-10 .2 normal Not Available [facility] ([facility]) [address] [place], [address], 05/21/2024 06:07:50 05/21/19 25 05/21/2024 LIPID PANEL cholesterol, total 199 mg/dL 100-19 9 normal Not Available [facility] ([facility]) [address] [facility] [place], [address], 05/21/2024 06:07:50 05/21/19 25 05/21/2024 LIPID PANEL triglyceride s 53 mg/dL 0-149 normal Not Available [facility] ([facility]) [address] [place], [address], 05/21/2024 06:07:50 05/21/19 25 05/21/2024 LIPID PANEL HDL cholesterol 71 mg/dL >39 normal Not Available [facility] ([facility]) [address] [place], [address], 05/21/2024 06:07:50 05/21/19 25 05/21/2024 LIPID PANEL VLDL cholesterol lizett 10 mg/dL 5-40 Not Available [facility] ([facility]) [address] [place], [address], 05/21/2024 06:07:50 05/21/19 25 05/21/2024 LIPID PANEL LDL chol calc ([facility]) 118 mg/dL 0-99 above high normal Not Available [facility] ([facility]) [address] [place], [address], 05/21/2024 06:07:50 05/21/19 25 05/21/2024 LIPID PANEL LDL calc comment: SUPERVISOR ROUGH END Not Available [facility] ([facility]) [address] [place], [address], 05/21/2024 06:07:50 05/21/19 25 05/21/2024 TSH RFX ON ABNOR MAL TO FREE T4 TSH 0.958 uIU/m L 0.450- 4.500 normal Not Available [facility] ([facility]) [address] [facility] [place], [address], 05/21/2024 06:07:51 10/07/19 25 10/07/2024 COMP. METAB OLIC PANEL (14) glucose 90 mg/dL 70-99 normal Not Available [facility] ([facility]) [address] [facility] [place], [address], 10/08/2024 06:07:45 10/07/19 25 10/07/2024 COMP. METAB OLIC PANEL (14) BUN 10 mg/dL 6-24 normal Not Available [facility] ([facility]) [address] [facility] [place], [address], 10/08/2024 06:07:45 10/07/19 25 10/07/2024 COMP. METAB OLIC PANEL (14) creatinine 0.66 mg/dL 0.57-1 .00 normal Not Available [facility] ([facility]) [address] [facility] [place], [address], 10/08/2024 06:07:45 10/07/19 25 10/07/2024 COMP. METAB OLIC PANEL (14) eGFR 105 mL/mi n/1.7 3 >59 normal Not Available [facility] ([facility]) [address] [facility] [place], [address], 10/08/2024 06:07:45 10/07/19 25 10/07/2024 COMP. METAB OLIC PANEL (14) BUN/creatini ne ratio 15 9-23 normal Not Available [facility] ([facility]) [address] [facility] [place], [address], 10/08/2024 06:07:45 10/07/19 25 10/07/2024 COMP. METAB OLIC PANEL (14) sodium 136 mmol/ L 134-14 4 normal Not Available [facility] ([facility]) [address] [facility] [place], [address], 10/08/2024 06:07:45 10/07/19 25 10/07/2024 COMP. METAB OLIC PANEL (14) potassium 4.5 mmol/ L 3.5-5. 2 normal Not Available [facility] ([facility]) [address] [facility] [place], [address], 10/08/2024 06:07:45 10/07/19 25 10/07/2024 COMP. METAB OLIC PANEL (14) chloride 99 mmol/ L 96-106 normal Not Available [facility] ([facility]) [address] [facility] [place], [address], 10/08/2024 06:07:45 10/07/19 25 10/07/2024 COMP. METAB OLIC PANEL (14) carbon dioxide, total 26 mmol/ L 20-29 normal Not Available [facility] ([facility]) [address] [facility] [place], [address], 10/08/2024 06:07:45 10/07/19 25 10/07/2024 COMP. METAB OLIC PANEL (14) calcium 9.0 mg/dL 8.7-10 .2 normal Not Available [facility] ([facility]) [address] [facility] [place], [address], 10/08/2024 06:07:45 10/07/19 25 10/07/2024 COMP. METAB OLIC PANEL (14) protein, total 6.3 g/dL 6.0-8. 5 normal Not Available [facility] ([facility]) [address] [facility] [place], [address], 10/08/2024 06:07:45 10/07/19 25 10/07/2024 COMP. METAB OLIC PANEL (14) albumin 4.0 g/dL 3.8-4. 9 normal Not Available [facility] ([facility]) [address] [facility] [place], [address], 10/08/2024 06:07:45 10/07/19 25 10/07/2024 COMP. METAB OLIC PANEL (14) globulin, total 2.3 g/dL 1.5-4. 5 Not Available [facility] ([facility]) [address] [facility] [place], [address], 10/08/2024 06:07:45 10/07/19 25 10/07/2024 COMP. METAB OLIC PANEL (14) bilirubin, total 0.6 mg/dL 0.0-1. 2 normal Not Available [facility] ([facility]) [address] [facility] [place], [address], 10/08/2024 06:07:45 10/07/19 25 10/07/2024 COMP. METAB OLIC PANEL (14) alkaline phosphatase 36 IU/L 44-121 below low normal Not Available [facility] ([facility]) [address] [facility] [place], [address], 10/08/2024 06:07:45 10/07/19 25 10/07/2024 COMP. METAB OLIC PANEL (14) AST (SGOT) 14 IU/L 0-40 normal Not Available [facility] ([facility]) [address] [place], [address], 10/08/2024 06:07:45 10/07/19 25 10/07/2024 COMP. METAB OLIC PANEL (14) ALT (SGPT) 12 IU/L 0-32 normal Not Available [facility] ([facility]) [address] [facility] [place], [address], 10/08/2024 06:07:45 10/07/19 25 10/07/2024 YANNI+L IPASE amylase 82 U/L 31-110 normal Not Available [facility] ([facility]) [address] [facility] [place], [address], 10/08/2024 06:07:46 10/07/19 25 10/07/2024 YANNI+L IPASE lipase 33 U/L 14-72 normal Not Available [facility] ([facility]) [address] [place], [address], 10/08/2024 06:07:46 10/07/19 25 10/07/2024 FSH AND LH LH 12.0 mIU/m L normal Adult Femal e Range Folli cular phase 2.4 - 12.6 Ovula tion phase 14.0 - 95.6 Lutea l phase 1.0 - 11.4 Postm enopa usal 7.7 - 58.5 Not Available [facility] ([facility]) [address] [place], [address], 10/08/2024 06:07:47 10/07/19 25 10/07/2024 FSH AND LH FSH 20.0 mIU/m L Adult Femal e Range Folli cular phase 3.5 - 12.5 Ovula tion phase 4.7 - 21.5 Lutea l phase 1.7 - 7.7 Postm enopa usal 25.8 - 134.8 Not Available [facility] ([facility]) [address] [place], [address], 10/08/2024 06:07:47 10/07/19 25 10/07/2024 TESTO STERO NE,FR EE AND TOTAL testosterone 28 NG/dL 4-50 normal Not Available [facility] ([facility]) [address] [place], [address], 10/08/2024 06:07:47 10/07/19 25 10/07/2024 TESTO STERO NE,FR EE AND TOTAL free testosterone (direct) 1.3 pg/mL 0.0-4. 2 Not Available [facility] ([facility]) [address] [place], [address], 10/08/2024 06:07:47 10/07/19 25 10/06/2024 HEMOG LOBIN A1C hemoglobin A1C 4.9 % 4.8-5. 6 normal Predi abete s: 5.7 - 6.4 Diabe verónica: >6.4 Glyce gerardo contr ol for adult s with diabe verónica: <7.0 Not Available [facility] ([facility]) [address] [place], [address], 10/08/2024 06:07:48 10/07/19 25 10/07/2024 ESTRA DIOL estradiol 257.0 pg/mL normal Adult Femal e Range Folli cular phase 12.5 - 166.0 Ovula tion phase 85.8 - 498.0 Lutea l phase 43.8 - 211.0 Postm enopa usal <6.0 - 54.7 Pregn juan 1st trime ster 215.0 - >4300 .0 Nicole ECLIA metho dolog y Not Available [facility] ([facility]) [address] [facility], [place], [address], 10/08/2024 06:07:49 10/07/19 25 10/08/2024 CHROM OGRAN IN A chromogranin A 66.0 NG/mL 0.0-10 1.8 Chrom ogran in A perfo rmed by Therm ofish er/BR AHMS KRYPT OR metho dolog y Value s obtai thor with diffe rent assay metho ds or kits canno t be used inter braxton eably . Not Available [facility] ([facility]) [address] [place], [address], 10/08/2024 06:07:50 10/07/19 25 10/07/2024 TSH RFX ON ABNOR MAL TO FREE T4 TSH 2.300 uIU/m L 0.450- 4.500 normal Not Available [facility] ([facility]) [address] [place], [address], 10/08/2024 06:07:50 07/01/19 25 06/29/2024 MRI, cervi lizett spine , w/o contr ast No observ ation record ed. [facility] (Medical Records) [address] [place] [address], [address], 06/30/2024 18:10:49 10/06/19 25 10/04/2024 MRI, brain + brain stem, w/o contr ast No observ ation record ed. [facility] (Medical Records) [address] [facility], [place], [address], 10/05/2024 18:01:13 10/07/19 25 10/05/2024 XR, ribs, unila teral , 3 or more view No observ ation record ed. [facility] [place] [address], [place], [address], 10/07/2024 22:02:18 11/11/19 25 11/09/2024 CT, chest , w/o contr ast CT Chest W/O Contra st INDICA TION: Reason : R07.81 PLEURO DYNIA; left-s ided rib pain : TECHNI QUE: Helica l CT scan of the chest withou t IV contra st, format porfirio in 3 planes . Weight -based protoc ol was perfor med using automa tic exposu re contro l. CTDIvo l Body: 8.62 mGy, DLP Body: 347 mGy*cm . COMPAR TYLER: X-ray 2019 FINDIN GS: Geological Scout view findin gs, lines and tubes: None. Trache a and airway s: Patent withou t eviden ce of trache al or endobr onchia l lesion . Lungs and pleura : Clear lungs. No effusi on or pneumo thorax . Medias tinum and katherine: No mass or hemato ma. No medias tinal or hilar lympha denopa thy. No esopha geal abnorm ality. Normal thyroi d. Heart: Heart is normal in size. No perica rdial effusi on. No salinas ry arteri al calcif icatio ns. Aorta: No aortic aneury sm. Pulmon arian arteri es: Normal calibe r. Chest wall soft tissue s: No acute abnorm ality. Diaphr agm: Intact . Upper abdome n: Incide ntal hepati c cysts. Cholel ithias is withou t eviden ce of cholec ystiti s. Bones: No acute abnorm ality. Healed left latera l ninth rib fractu re. No lytic or sclero tic lesion . There is a broad modera te levosc oliosi s of the thorac ic spine. There is modera te loss of disc space height throug hout the thorac ic spine. IMPRES SCARLET: No rib lesion or fractu re. A previo usly report ed nondis placed left latera l ninth rib fractu re is healed . No acute intrat horaci c pathol ogy. No effusi on or pneumo thorax . No pleura l thicke kenneth. Modera te broad levosc oliosi s with associ ated degene rative disc pathol ogy throug hout the thorac ic spine. Incide ntal cysts in the liver which have a benign appear ance. Cholel odilia is withou t eviden ce of cholec ystiti s. WSN: [id number] Orderi ng Physic heather: Kaiden Finch Dictat ed By: Sher Montiel MD Dictat ed Date/T mahnaz: 10:00 a Review ed By: Sher Montiel MD Signed By: Sher Montiel MD Signed Date/T mahnaz: 10:00 am Transc ribed By: GUCCI Transc ribed Date/T mahnaz: 9:57 am [facility] [address] [place] [address], [address], 11/17/2024 10:45:38 Result Notes Documentation Provider Name and Address Organization Details Recorded Time Ct, Chest, W/o Contrast : CT Chest W/O Contrast INDICATION: Reason: R07.81 PLEURODYNIA; left-sided rib pain : TECHNIQUE: Helical CT scan of the chest without IV contrast, formatted in 3 planes. Weight-based protocol was performed using automatic exposure control. CTDIvol Body: 8.62 mGy, DLP Body: 347 mGy*cm. COMPARISON: X-ray 03/08/2020 FINDINGS: Geological Scout view findings, lines and tubes: None. Trachea and airways: Patent without evidence of tracheal or endobronchial lesion. Lungs and pleura: Clear lungs. No effusion or pneumothorax. Mediastinum and katherine: No mass or hematoma. No mediastinal or hilar lymphadenopathy. No esophageal abnormality. Normal thyroid. Heart: Heart is normal in size. No pericardial effusion. No coronary arterial calcifications. Aorta: No aortic aneurysm. Pulmonary arteries: Normal caliber. Chest wall soft tissues: No acute abnormality. Diaphragm: Intact. Upper abdomen: Incidental hepatic cysts. Cholelithiasis without evidence of cholecystitis. Bones: No acute abnormality. Healed left lateral ninth rib fracture. No lytic or sclerotic lesion. There is a broad moderate levoscoliosis of the thoracic spine. There is moderate loss of disc space height throughout the thoracic spine. IMPRESSION: No rib lesion or fracture. A previously reported nondisplaced left lateral ninth rib fracture is healed. No acute intrathoracic pathology. No effusion or pneumothorax. No pleural thickening. Moderate broad levoscoliosis with associated degenerative disc pathology throughout the thoracic spine. Incidental cysts in the liver which have a benign appearance. Cholelithiasis without evidence of cholecystitis. WSN: [id number] Ordering Physician: Ebony Noble Dictated By: Amado Montiel MD Dictated Date/Time: 11/10/24 10:00 a Reviewed By: Amado Montiel MD Signed By: Amado Montiel MD Signed Date/Time: 11/10/24 10:00 am Transcribed By: GUCCI Transcribed Date/Time: 11/10/24 9:57 am Patient Class: Outpatient EBONY NOBLE MD [address] [address], [place], [address], [facility] 11/10/2024 15:17:25 Problems Name Problem SNOMED Code Status Onset Date Resolution Date Notes Provider Name and Address Organization Details Recorded Time Backache 736043484 Active fusion in C2-C3-> no operatio ns EBONY NOBLE MD [address] [facility] [address], [place], [address] , [facility] 3 09:51:39 Migraine 18171603 [facility] 4 10:05:34 Administ ration of bacteria l and viral vaccine Completed 201009/21/2013 RECORDED 07/10/19 11 9:35AM BY STACIA GIORDANO, LARRYIC AL SUMMARY Shwetha Mederos dyana, [facility] 6 09:58:38 Administ ration of bacteria l and viral vaccine Completed 201010/14/2013 RECORDED 07/10/19 11 9:35AM BY EDITH SELLERS AL SUMMARY Shwetha Mederos null, [facility] 6 09:58:38 Administ ration of bacteria l and viral vaccine Completed 201010/15/2013 RECORDED 07/10/19 11 9:35AM BY EDITH SELLERS AL SUMMARY Shwetha Mederos null, [facility] 6 09:58:38 Bunion [id number] Completed 201109/21/2013 RECORDED 02/13/20 12 10:37AM BY IGLESIA MORA MA, ANNOTATI ON/ADDEN DUM Shwetha Mederos null, [facility] 6 09:58:38 Screenin g for malignan t neoplasm of cervix Completed 201109/21/2013 RECORDED 02/13/20 12 10:37AM BY IGLESIA MORA MA, ANNOTATI ON/ADDEN DUM Shwetha Mederos null, [facility] 6 09:58:38 Pre-surg umm evaluati on [...] MA, ANNOTATI ON/ADDEN DUM Shwetha Mederos null, [facility] 6 09:58:38 Influenz a vaccine needed [id number] 06 Completed 201109/21/2013 RECORDED 02/13/20 12 10:42AM BY IGLESIA MORA MA, OFFICE VISIT Shwetha turpin, [facility] 6 09:58:38 Arthrode sis Completed 201109/21/2013 IMPRESSI ON: LIMITED ROM, UNABLE TO GEOVANNA ND SLEEP FLAT, WILL SET UP APPT WITH STANTON MEDINA, MAY NEED SHUNT; RECORDED 02/13/20 12 10:37AM BY IGLESIA MORA MA, ANNOTATI ON/ADDEN DUM Shwetha Mederos null, [facility] 6 09:58:38 Bunion [id number] Completed 201110/14/2013 RECORDED 02/13/20 12 10:37AM BY IGLESIA MORA MA, ANNOTATI ON/ADDEN DUM Shwetha Mederos null, [facility] 6 09:58:38 Screenin g for malignan t neoplasm of cervix Completed 201110/14/2013 RECORDED 02/13/20 12 10:37AM BY IGLESIA MORA MA, ANNOTATI ON/ADDEN DUM Shwetha Mederos null, [facility] 6 09:58:38 Pre-surg umm evaluati on [...] MA, ANNOTATI ON/ADDEN DUM Shwetha Mederos null, [facility] 6 09:58:38 Influenz a vaccine needed [id number] 06 Completed 201110/14/2013 RECORDED 02/13/20 12 10:42AM BY IGLESIA MORA MA, OFFICE VISIT Shwetha turpin, [facility] 6 09:58:38 Arthrode sis Completed 201110/14/2013 IMPRESSI ON: LIMITED ROM, UNABLE TO GEOVANNA ND SLEEP FLAT, WILL SET UP APPT WITH STANTON MEDINA, MAY NEED SHUNT; RECORDED 02/13/20 12 10:37AM BY IGLESIA MORA MA, ANNOTATI ON/ADDEN DUM Shwetha turpin, [facility] 6 09:58:38 Bunion [id number] Completed 201110/15/2013 RECORDED 02/13/20 12 10:37AM BY IGLESIA MORA MA, ANNOTATI ON/ADDEN DUM Shwetha turpin, [facility] 6 09:58:38 Screenin g for malignan t neoplasm of cervix Completed 201110/15/2013 RECORDED 02/13/20 12 10:37AM BY IGLESIA MORA MA, ANNOTATI ON/ADDEN DUM Shwetha turpin, [facility] 6 09:58:38 Pre-surg umm evaluati on [...] MORA MA, ANNOTATI ON/ADDEN DUM Shwetha turpin, [facility] 6 09:58:38 Influenz a vaccine needed [id number] 06 Completed 201110/15/2013 RECORDED 02/13/20 12 10:42AM BY IGLESIA MORA MA, OFFICE VISIT Shwetha turpin, [facility] 6 09:58:38 Rupa mcelroy Completed 201110/15/2013 IMPRESSI ON: LIMITED ROM, UNABLE TO GEOVANNA ND SLEEP FLAT, WILL SET UP APPT WITH STANTON MEDINA, MAY NEED SHUNT; RECORDED 02/13/20 12 10:37AM BY IGLESIA MORA MA, ANNOTATI ON/ADDEN DUM Shwetha Mederos null, [facility] 6 09:58:38 Screenin g for malignan t neoplasm of breast Completed 201209/21/2013 RECORDED 08/21/19 13 9:15AM BY PEDRO PABLO SELLERS ON/ADDEN DUM Shwetha Mederos null, [facility] 6 09:58:38 Adult health examinat ion Completed 201209/21/2013 IMPRESSI ON: PAP AND MAMMO UTD, PT IS DOING WELL, WILL ADD VITAMIN D; RECORDED 08/21/19 13 9:15AM BY PEDRO PABLO SELLERS ON/ADDEN DUM Shwetha Mederos null, [facility] 6 09:58:38 Screenin g for malignan t neoplasm of breast Completed 201210/14/2013 RECORDED 08/21/19 13 9:15AM BY PEDRO PABLO SELLERS ON/ADDEN DUM Shwetha Mederos null, [facility] 6 09:58:38 Adult health examinat ion Completed 201210/14/2013 IMPRESSI ON: PAP AND MAMMO UTD, PT IS DOING WELL, WILL ADD VITAMIN D; RECORDED 08/21/19 13 9:15AM BY PEDRO PABLO SELLERS ON/ADDEN DUM Shwetha Mederos null, [facility] 6 09:58:38 Screenin g for malignan t neoplasm of breast Completed 201210/15/2013 RECORDED 08/21/19 13 9:15AM BY PEDRO PABLO SELLERS ON/ADDEN DUM Shwetha turpin [facility] 6 09:58:38 Adult health examinat ion Completed 201210/15/2013 IMPRESSI ON: PAP AND MAMMO UTD, PT IS DOING WELL, WILL ADD VITAMIN D; RECORDED 08/21/19 13 9:15AM BY PEDRO PABLO SELLERS ON/ADDEN DUM Shwetha turpin [facility] 6 09:58:38 Allergic rhinitis 46014745 Active 2012 Kelsey turpin [facility] 8 08:41:05 Patient status finding [id number] Completed 201212/25/2015 Ewa turpin [facility] 6 11:19:16 Burn [id number] Completed 201209/21/2013 IMPRESSI ON: HEALING WELL; RECORDED 02/23/20 13 9:43AM BY IGLESIA MORA MA, ANNOTATI ON/ADDEN DUM Shwetha turpin [facility] 6 09:58:38 Pure hypercho lesterol emia 822800806 Completed 201201/12/2020 Ewa turpin [facility] 0 09:24:32 Impacted cerumen 15734113 Completed 201209/21/2013 RECORDED 02/23/20 13 9:43AM BY IGLESIA MORA MA, ANNOTATI ON/ADDEN DUM Shwetha turpin [facility] 6 09:58:38 Lymphade nopathy 22132901 Completed 201201/06/2019 Ewa turpin [facility] 9 10:28:50 Skin sensatio n disturba ale 94205193 Completed 201212/25/2015 STORY: CHRONIC LEFT ARM; RECORDED 02/23/20 13 11:00AM BY EVANGELINA BRYANT, OFFICE VISIT Ewa turpin [facility] 6 11:19:29 Acute stress disorder 22139465 Completed 201209/21/2013 IMPRESSI ON: AFTER SUDDEN LOSS OF FATHER. CLOSE FAMILY AND FRIENDS FOR SUPPORTS . CURRENTL Y DECLINES ANY FURTHER TX.; RECORDED 02/23/20 13 9:43AM BY IGLESIA MORA MA, PEDRO PABLO ON/ADDEN DUM Shwethaedy turpin [facility] 6 09:58:38 Eruption [id number] Completed 201209/21/2013 IMPRESSI ON: FACIAL, SET UP APPT WITH DERM; RECORDED 02/23/20 13 9:43AM BY IGLESIA MORA MA, PEDRO PABLO ON/ADDEN DUM Shwetha Mederosedy turpin [facility] 6 09:58:38 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 2012 Kelsey turpin, [facility] 8 08:40:52 Syringom yelia and syringob ulbia 540467414 Active 2012 Kelsey turpin, [facility] 8 08:40:43 Varicose veins of lower extremit y 78765958 Completed 201209/21/2013 IMPRESSI ON: LEFT LEG, HURT HER PT TO SEE DR HOOVER; RECORDED 02/23/20 13 9:43AM BY IGLESIA MORA MA, ANNOTATI ON/ADDEN DUM Shwetha Gatito turpin [facility] 6 09:58:38 Dizzines s and giddines s 041782084 Completed 201201/01/2018 IMPRESSI ON: MILD VERTIGO SXS, [...] MA, OFFICE VISIT Stacia Giordano MA null, [facility] 8 09:54:27 Burn [id number] Completed 201210/14/2013 IMPRESSI ON: HEALING WELL; RECORDED 02/23/20 13 9:43AM BY IGLESIA MORA MA, PEDRO PABLO ON/ADDEN DUM Shwetha Mederosedy turpin, [facility] 6 09:58:38 Impacted cerjamesn 15723761 Completed 201210/14/2013 RECORDED 02/23/20 13 9:43AM BY IGLESIA MORA MA, PEDRO PABLO ON/ADDEN DUM Shwetha Gatito turpin, [facility] 6 09:58:38 Acute stress disorder 88618604 Completed 201210/14/2013 IMPRESSI ON: AFTER SUDDEN LOSS OF FATHER. CLOSE FAMILY AND FRIENDS FOR SUPPORTS . CURRENTL Y DECLINES ANY FURTHER TX.; RECORDED 02/23/20 13 9:43AM BY IGLESIA MORA MA, ANNOTATI ON/ADDEN DUM Shwethaedy turpin, [facility] 6 09:58:38 Eruption [id number] Completed 201210/14/2013 IMPRESSI ON: REACTION TO BAND-AID ; RECORDED 02/23/20 13 9:43AM BY IGLESIA MORA MA, ANNOTATI ON/ADDEN DUM Shwetha Mederosedy turpin, [facility] 6 09:58:38 Varicose veins of lower extremit y [id number] Completed 201210/14/2013 IMPRESSI ON: LEFT LEG, HURT HER PT TO SEE DR HOOVER; RECORDED 02/23/20 13 9:43AM BY IGLESIA MORA MA, ANNOTAYAKA ON/ADDEN DUM Shwetha Mederos dyana, [facility] 6 09:58:38 Burn [id number] Completed 201210/15/2013 IMPRESSI ON: HEALING WELL; RECORDED 02/23/20 13 9:43AM BY IGLESIA MORA MA, PEDRO PABLO ON/ADDEN DUM Shwetha Mederos null, [facility] 6 09:58:38 Impacted deepak 58240516 Completed 201210/15/2013 RECORDED 02/23/20 13 9:43AM BY IGLESIA MORA MA, PEDRO PABLO ON/ADDEN DUM Shwetha Gatito turpin, [facility] 6 09:58:38 Acute stress disorder 51926140 Completed 201210/15/2013 IMPRESSI ON: AFTER SUDDEN LOSS OF FATHER. CLOSE FAMILY AND FRIENDS FOR SUPPORTS . CURRENTL Y DECLINES ANY FURTHER TX.; RECORDED 02/23/20 13 9:43AM BY IGLESIA MORA MA, PEDRO PABLO ON/ADDEN DUM Shwetha Mederos null, [facility] 6 09:58:38 Eruption [id number] Completed 201210/15/2013 IMPRESSI ON: REACTION TO BAND-AID ; RECORDED 02/23/20 13 9:43AM BY IGLESIA MORA MA, PEDRO PABLO ON/ADDEN DUM Shwetha Mederos null, [facility] 6 09:58:38 Varicose veins of lower extremit y 59213311 Completed 201210/15/2013 IMPRESSI ON: LEFT LEG, HURT HER PT TO SEE DR HOOVER; RECORDED 02/23/20 13 9:43AM BY IGLESIA MORA MA, ANNOTATI ON/ADDEN DUM Shwetha Gatito turpin, [facility] 6 09:58:38 Sleep apnea 66582743 Active 2021 Ewa turpin, [facility] 2 15:42:31 Benign paroxysm al position al vertigo 860722674 Active 2022 Jose Luis Munoz, [facility] [address] [address], [place], [address] , [facility] 3 15:47:29 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 Procedures Surgical History Date Name Laterality Status Provider Name and Address Organization Details Recorded Time 11/21/19 23 Most Recent Mammogram completed Rosanna Falcon [facility] 11/21/2022 08:42:43 10/03/19 22 Most Recent Bone Density completed Kelvin Murillo MA [facility] 03/19/2022 09:45:05 08/23/19 22 Date of Last Colonoscopy completed Radha Godinez [facility] 08/22/2021 11:41:39 08/23/19 22 Colonoscopy completed Radha Godinez [facility] 08/22/2021 11:41:32 11/16/19 21 Mammogram both breasts completed Shwetha Mederos [facility] 03/07/2021 13:54:47 03/10/19 21 Date of Last Pap Smear completed Stacia Giordano MA [facility] 05/19/2023 09:41:43 01/14/20 18 endovenous laser ablation of varicose vein completed Shwetha Mederos [facility] 01/20/2018 15:48:57 07/29/19 18 Endovenous rf 1st vein completed Ammy Virk [facility] 08/07/2017 16:17:41 10/23/19 05 Back Surgery completed Stacia Giordano MA [facility] 01/26/2021 10:52:44 Back Surgery completed Stacia Giordano MA [facility] 01/26/2021 10:52:44 Imaging Results None recorded. [...] e 50 mcg/actua tion nasal spray,[employer] [place] 2 sprays every day by intranas al [...] Not Available Not Available Not Avai lable Drysol 20 % topical solution APPLY TOPICALL Y TO THE AFFECTED AREA EVERY DAY 11/16 completed Not Available Not Available Not Available Clenpiq 10 mg-3.5 gram-12 gram/160 mL oral solution USE INTSTRUC PORFIRIO BY PHYSICIA NS OFFICE FOR COLONSCO PY 01/10 completed Not Available Not Available Not Available Vitals Date Recorded Body height Body mass index (BMI) Body weight Oxygen saturation Oxygen saturation in Arterial blood by Pulse oximetry Heart rate Body temperature Systolic And Diastolic Provider Name and Address Organization Details Last Updated DateTime 4 157.48 cm 26.7 kg/m2 12481.8 9 g 98 % 98 % 82 /min 98.2 [degF] 119/72 mm[Hg] Stacia Giordano MA [facility] [place] 4 09:40:20 Date Recorded Body height Body mass index (BMI) Body weight Heart rate Oxygen saturation Oxygen saturation in Arterial blood by Pulse oximetry Body temperature Systolic And Diastolic Provider Name and Address Organization Details Last Updated DateTime 5 157.48 cm 25.8 kg/m2 00416.5 2 g 98 /min 98 % 98 % 98.3 [degF] 130/82 mm[Hg] Gregoria Lundberg MA [facility] 5 08:58:09 Date Recorded Body height Body mass index (BMI) Body weight Oxygen saturation Oxygen saturation in Arterial blood by Pulse oximetry Heart rate Body temperature Systolic And Diastolic Provider Name and Address Organization Details Last Updated DateTime 5 157.48 cm 26.6 kg/m2 96248.6 9 g 99 % 99 % 89 /min 98.1 [degF] 120/81 mm[Hg] Stacia Giordano MA [facility] 5 11:43:41 Date Recorded Body height Body mass index (BMI) Body weight Oxygen saturation Oxygen saturation in Arterial blood by Pulse oximetry Heart rate Body temperature Systolic And Diastolic Provider Name and Address Organization Details Last Updated DateTime 4 157.48 cm 26.2 kg/m2 91521.8 1 g 99 % 99 % 81 /min 98.3 [degF] 113/75 mm[Hg] Stacia Giordano MA [facility] 4 10:11:32 Date Recorded Body height Body mass index (BMI) Body weight Oxygen saturation Oxygen saturation in Arterial blood by Pulse oximetry Heart rate Body temperature Systolic And Diastolic Provider Name and Address Organization Details Last Updated DateTime 5 157.48 cm 26.7 kg/m2 76669.1 9 g 99 % 99 % 80 /min 98.4 [degF] 124/77 mm[Hg] Stacia Giordano MA [facility] 5 13:45:07 Social History Question Answer Notes LastModified by Organizat ion Details LastModified Time Tobacco Smoking Status Never Smoker REILLY Sellers [facility] 12/09/2013 13:32:24 Is Blood Transfusion Acceptable In An Emergency? Yes [email or web address] Information not available 12/22/2014 What Is Your Level Of Caffeine Consumption? Occasional [email or web address] Information not available 12/09/2013 How Much Tobacco Do You Chew? None [email or web address] Information not available 01/26/2021 What Type Of Diet Are You Following? REGULAR [email or web address] Information not available 12/09/2013 Which Illicit Or Recreational Drugs Have You Used? None [email or web address] Information not available 01/26/2021 Live Alone Or With Others? With Others And Daughter Information not available 01/10/2022 Do You Take Precautions To Prevent Distracted Driving? Yes [email or web address] Information not available 12/22/2014 How Often Do You Need To Have Someone Help You When You Read Instructions, Pamphlets, Or Other Written Material From Your Doctor Or Pharmacy? Never [email or web address] Information not available 01/26/2021 Have You Served In The ? No [email or web address] Information not available 12/25/2015 Have You Or Anyone In Your Household Had Any Of The Following Symptoms In The Last 14 Days: Sore Throat, Cough, Chills, Body Aches For Unknown Reasons, Shortness Of Breath For Unknown Reasons, Loss Of Smell, Loss Of Taste, Fever At Or Greater Than 100 Degrees Fahrenheit? No [email or web address] Information not available 01/12/2020 Are You Or Anyone In Your Household A Health Care Provider Or Emergency Responder? No [email or web address] Information not available 01/12/2020 To The Best Of Your Knowledge Have You Been In Close Proximity To Any Individual Who Tested Positive For COVID-19? No [email or web address] Information not available 01/12/2020 Have You Recently Traveled To A COVID-19 High Risk Area Or Gathering In The Last 10 Days? No [email or web address] Information not available 01/26/2021 What Was The Date Of Your Most Recent Tobacco Screening? 11/16/2024 [email or web address] Information not available 11/16/2024 How Many Children Do You Have? 2 [email or web address] Information not available 01/06/2019 Do You Use Protection During Sex? Always [email or web address] Information not available 01/26/2021 Do You Use Your Seat Belt Or Car Seat Routinely? Yes [email or web address] Information not available 01/26/2021 Seat Belts Used Routinely Yes Information not available 01/10/2022 Are You Sexually Active? Yes [email or web address] Information not available 01/26/2021 Do You Have Smoke And Carbon Monoxide Detectors In Your Home? Yes [email or web address] Information not available 01/26/2021 Are You Passively Exposed To Smoke? No [email or web address] Information not available 01/26/2021 How Much Tobacco Do You Smoke? No [email or web address] Information not available 01/26/2021 Do You Use Sunscreen Routinely? Yes [email or web address] Information not available 12/09/2013 Sex: Unknown Functional Status Question Answer Note LastModified by Organizat ion Details LastModified Time Do you use any illicit or recreational drugs? No Information not available 03/19/2022 What is your level of alcohol consumption? Occasional rare [email or web address] Information not available 01/06/2019 Do you or have you ever used smokeless tobacco? Never used smokeless tobacco Information not available 01/06/2019 Are you currently employed? No [email or web address] Information not available 01/06/2019 Are you able to walk independently without assistance or assistive devices? [email or web address] Information not available 01/10/2022 Are you able to care for yourself independently? Yes [email or web address] Information not available 12/09/2013 Do you or have you ever used e-cigarettes or vape? Never used electronic cigarettes Information not available 01/10/2022 What is your exercise level? Moderate 4 mile walk daily Information not available 03/19/2022 Mental Status None recorded. Family History Relationship Description Onset Age of this Age Resolved Age Notes LastModified by Organization Details LastModified Time Maternal Grandmother Cerebrovascu lar accident [email or web address] Not available 13:31:43 Mother Osteoporosis [email or web address] Not [...] mRNA, LNP-S, PF, 30 mcg/0.3 mL dose 04/28/19 21 completed Stacia Giordano, MA null, [facility] 01/26/2021 11:02:18 Tdap 12/23/19 15 completed EBONY NOBLE MD [address] [facility] [address] [facility], [place], [address], [facility] 03/18/2022 21:14:11 COVID-19, mRNA, LNP-S, PF, 30 mcg/0.3 mL dose 05/20/19 21 completed Stacia Giordano MA null, [facility] 01/26/2021 11:02:18 COVID-19, mRNA, LNP-S, PF, 30 mcg/0.3 mL dose 02/24/20 21 completed Grisel Wynn MA null, [facility] 07/25/2021 10:30:55 Influenza, split virus, quadrivalent, PF 01/07/20 19 completed EBONY NOBLE MD [address] [facility] [address] [facility], [place], [address], [facility] 03/18/2022 21:14:10 Influenza, split virus, quadrivalent, PF 01/12/20 20 completed EBONY NOBLE MD [address] [facility] [address] [facility], [place], [address], [facility] 03/18/2022 21:14:11 Influenza, split virus, quadrivalent, PF 01/27/20 21 completed EBONY NOBLE MD [address] [facility] [address] [facility], [place], [address], [facility] 03/18/2022 21:14:11 Tdap 12/23/19 15 completed EBONY NOBLE MD [address] [facility], [place], [address],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 neurologist about this and patient centered care specialist. MRI brain was ordered and normal per patient. MRI of the lumbar spine showed no changes. Patient is also questioning if occurred due to the shingles shot. Patient uses secret at a deoderant. Has tried drysol with little relief. Patient did mention that with the course of steroids her symptom completely resolved. Denies taking any new medications Left sided rib pain: Improved, now intermittent. The pain is intermittent but worse with pressure or to touch. Does have a history of fracture rib. X-ray of the ribs showed subacute vs chronic left and 8th and 9th ribs. A Ct scan of the chest was done which showed a previously reported nondisplaced left lateral ninth rib fracture is healed. Patient mentions that when she leaves her feet hanging for a certain period of time her left toes will turn purple. This does not happen to the rigth side. This is not a new finding however due to clamminess and sweating on her left side she is worried about a vascular problem. EBONY NOBLE MD [address] [facility] [address], [place], [address], [facility] 11/16/2024 16:02:21 OBGyn Episode No OBEpisode recorded.
--- OUTSIDE RECORDS SUMMARY | 2025-01-20 10:33 | XMS_ITS | Patient Health Record ---
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
--- OUTSIDE RECORDS SUMMARY | 2025-01-20 10:33 | XMS_ITS | Patient Health Record ---
Author Organization [facility] Address [address] [place] [address] Care Team Providers Care Engraver Apprentice Decorative Name Role Phone BHUMI HURD, LISANDRO Primary Care Provider Christina Saeed Unavailable [phone] Allergies No Known Allergies Results Component Value [...] W/U Status Risk Notes Problem Age-related osteoporosis (749318247) Age-related osteoporosis without current pathological fracture (M81.0) Active confirmed Problem Urinary incontinence (994577314) Unspecified urinary incontinence (R32) Active confirmed Problem Postcoital bleeding (01074268) Postcoital and contact bleeding (N93.0) Active confirmed Problem Unspecified menopausal and perimenopausal disorder (N95.9) Active confirmed Problem SI - Stress incontinence (13523022) Stress incontinence (female) (male) (N39.3) Active confirmed Problem 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) Active confirmed Major Problem Gynecological examination normal (493818092712887) Routine gynecological examination (V72.31) Active confirmed Major Vital Signs Temperature 97.5 degrees Fahrenheit 06/23/2024 Blood pressure diastolic 80 mm Hg 06/23/2024 Height 62.5 in 06/23/2024 Blood pressure systolic 124 mm Hg 06/23/2024 Weight 141 lbs 06/23/2024 BMI 25.38 kg/m2 06/23/2024 Encounters Encounter Location Date Provider Diagnosis [address] [place] [address] 06/23/2024 Christina Maldonado Encounter for gynecological examination [...] Appt Details Provider Name:Christina Burciaga hong, 06/24/2025 09:30:00 AM, [address], [address], [place], [address], Insurance Providers Payer Name Payer Address Payer Phone Subscriber Number Group Number Insured Name Patient Relationship to Insured Coverage Start Date Coverage End Date [facility] [address] [place] [address] [id number] JERED SINGLETARY Self - patient is the [...]
== END 2025-01-20 10:45 | disposition home or self-care (01) ==
LOC: HO.HSMS 09:17
PROVIDERS: PCP Physician Assistant; Visit Provider Physician Assistant Medical
DX: G47.19 Other hypersomnia (principal); Z86.69 Personal history of other diseases of the nervous system and sense organs; R06.83 Snoring
CPT/HCPCS: 99214